=== PATIENT | male | born 1970 | race Caucasian/White ===

== ENCOUNTER 2021-10-22 09:44 | Emergency (ER) | payer OTHER, SELFPAY ==
--- NOTE | ~2021-10-22 | XR_ITS ---
EXAMINATION: XR SHOULDER, RIGHT CLINICAL INFORMATION: Trauma, pain, limited range of motion. COMPARISON: None. TECHNIQUE: Right shoulder is imaged in 5 views. FINDINGS: There is no fracture or dislocation. Right lung apex shows no pneumothorax or pleural reaction. The glenohumeral joint appears normal. The acromioclavicular alignment is normal varus incidental corticated ossicle adjacent to the distal clavicle measuring 0.8 x 1.6 cm. There is a benign-appearing calcification adjacent to inferior glenoid rim possibly related to the inferior glenohumeral ligament. No acute abnormality. XR/XR shoulder RT min 2V IMPRESSION: No fracture or dislocation or arthropathy.
[2021-10-22 10:23] VITALS: BP 127/85; PULSE 99; RESP 18; TEMP 37.1; O2SAT 96; BMI 38.3
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
== END 2021-10-22 11:52 | disposition home or self-care (01) ==
PROVIDERS: Emergency Provider Emergency Medicine
DX: S13.9XXA Sprain of joints and ligaments of unspecified parts of neck, initial encounter (principal); S13.4XXA Sprain of ligaments of cervical spine, initial encounter; V43.52XA Car driver injured in collision with other type car in traffic accident, initial encounter; E11.9 Type 2 diabetes mellitus without complications; I10 Essential (primary) hypertension; Y93.89 Activity, other specified; Y92.414 Local residential or business street as the place of occurrence of the external cause; Y99.9 Unspecified external cause status
CPT/HCPCS: 73030; 99283

== ENCOUNTER 2021-11-25 08:37 | Outpatient (REF) | payer OTHER, MEDICAID, SELFPAY | END 2021-11-25 08:38 | disposition home or self-care (01) | LOC: HO.HMGCLDS 08:37 | PROVIDERS: Visit Provider Internal Medicine | DX: Z20.822 Contact with and (suspected) exposure to COVID-19 (principal) | CPT/HCPCS: C9803; U0003; U0005 ==

== ENCOUNTER 2023-08-16 08:50 | Outpatient (AMB) | payer MEDICARE, MEDICAID, SELFPAY ==
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
== END 2023-08-16 09:21 | disposition home or self-care (01) ==
PROVIDERS: PCP Nurse Practitioner Family; Visit Provider Orthopaedic Surgery
DX: M25.511 Pain in right shoulder (principal)
CPT/HCPCS: 99202

== ENCOUNTER 2023-08-16 11:29 | Outpatient (REF) | payer MEDICARE, MEDICAID, SELFPAY ==
--- NOTE | ~2023-08-16 | XR_ITS ---
EXAMINATION: XR SHOULDER, RIGHT CLINICAL INFORMATION: Right shoulder pain. COMPARISON: Right shoulder radiographs dated 10/22/2021. TECHNIQUE: AP and scapular Y views of the right shoulder. FINDINGS: No acute fracture or dislocation. Moderate acromioclavicular joint space narrowing with marginal osteophytes and a corticated ossification, unchanged. No significant glenohumeral joint space narrowing or marginal osteophytes. No osseous erosion. Ossified loose body at the inferior aspect of the glenohumeral joint measuring up to 1.2 cm, unchanged. XR/XR shoulder RT min 2V IMPRESSION: 1. Moderate acromioclavicular osteoarthritis, unchanged. 2. Ossified loose body at the inferior aspect of the glenohumeral joint measuring up to 1.2 cm, unchanged.
== END 2023-08-16 11:30 | disposition home or self-care (01) ==
LOC: HO.HOSX 11:29
PROVIDERS: Visit Provider Orthopaedic Surgery
DX: M25.511 Pain in right shoulder (principal)
CPT/HCPCS: 73030; 99202

== ENCOUNTER 2023-08-25 09:27 | Outpatient (AMB) | payer MEDICARE, MEDICAID, SELFPAY ==
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
== END 2023-08-25 09:57 | disposition home or self-care (01) ==
PROVIDERS: PCP Nurse Practitioner Family; Visit Provider Orthopaedic Surgery
DX: M25.811 Other specified joint disorders, right shoulder (principal)
CPT/HCPCS: 99212

== ENCOUNTER → 2023-08-25 09:27 | Outpatient (BNVA) | payer MEDICARE, MEDICAID, SELFPAY | PROVIDERS: PCP Nurse Practitioner Family; Visit Provider Orthopaedic Surgery | DX: M25.811 Other specified joint disorders, right shoulder (principal) | CPT/HCPCS: 99212 ==

== ENCOUNTER 2023-09-23 05:56 | Day surgery (SDC) | payer MEDICARE, MEDICAID, SELFPAY ==
[2023-09-20 19:41] VITALS: BMI 37.7
--- NOTE | 2023-09-22 09:07 | P.CONAN_ITS ---
Documented by User: Kiki Hernandes NP 09/22/23 09:13 HPI - Anesthesia Eval Consult details Narrative: 53yo M for Right Right shoulder arthroscopy distal clavicle excision acromioplasty, possible rotator cuff repair Anesthesia Pre-Procedure Meds Is the patient on any of the following meds?: Dulaglutide (Trulicity) (Last dose 09/15/23) If Yes to any meds - educate patient: Pt education - increased risk of aspiration and Pt education - possibility of cancelled proc at provider's discretion PMFSH Active Problems Active Problems: All Active Problems (Updated 09/21/23 @ 06:52 by Sandra Yu RN) Impingement of right shoulder (Acute) Cellulitis of scalp (Acute) Right shoulder pain (Acute) Past Medical History Medical History (Updated 09/21/23 @ 06:52 by Sandra Yu RN) Obesity (BMI 30-39.9) Hyperlipidemia Right shoulder pain Diabetes mellitus, type 2 Hypertension Surgical History Surgical History (Updated 09/23/23 @ 06:13 by Jailene Arrington) H/O knee surgery History of lumbosacral spine surgery H/O right wrist surgery Social History Social History Patient Tobacco Use Status: Never used Tobacco Use of substances other than those prescribed or required for medical reasons: No Are you DNR?: No Advance Directives: No Advance Directives Information Provided: Yes Advance Directives on File: No Recently lost weight without trying: No Nutrition Risks: No Nutritional Risk Meds Allergies Allergy/AdvReac Type Severity Reaction Status Date / Time codeine [CODEINE] Allergy Severe Dizziness Unverified 09/23/23 06:14 naproxen Allergy Intermediate Stomach Verified 09/23/23 06:14 Cramps Active Medications: Current Medications Cefazolin Sodium/Dextrose (Ancef) 2 gm in 50 mls @ 100 mls/hr IV PREOP ONE Stop: 09/23/23 05:01 Home Medications Medication Instructions Recorded Confirmed Last Taken Type ibuprofen 800 mg tablet 800 mg PO ONCE 03/23/23 09/23/23 09/13/23 History losartan 50 mg tablet 50 mg PO DAILY 03/23/23 09/23/23 09/22/23 History metformin 1,000 mg tablet 1,000 mg PO DAILY 03/23/23 09/23/2323 History simvastatin 20 mg tablet 20 mg PO DAILY 03/23/23 09/23/23 Unknown History dulaglutide 0.75 mg/0.5 mL 0.75 mg subcut QWEEK 09/22/23 09/23/23 09/15/23 History subcutaneous pen injector (Trulicity) Exam Exam Date and Time: September 22, 2023 0907 Height,Weight and Vital Signs: Height 5 ft 11 in Weight 122.47 kg Assessment and Plan Assessment Anesthesia Assessment: Chart Reviewed Documented by User: Donald Kim MD 09/23/23 08:31 [facility] Past Medical History Medical History (Updated 09/21/23 @ 06:52 by Sandra Yu RN) Obesity (BMI 30-39.9) Hyperlipidemia Right shoulder pain Diabetes mellitus, type 2 Hypertension Family History Family history of problems with anesthesia: No Surgical History Surgical History (Updated 09/23/23 @ 06:13 by Jailene Arrington) H/O knee surgery History of lumbosacral spine surgery H/O right wrist surgery History of Problems with Anesthesia: No Social History Social History Patient Tobacco Use Status: Never used Tobacco Use of substances other than those prescribed or required for medical reasons: No Are you DNR?: No Advance Directives: No Advance Directives Information Provided: Yes Advance Directives on File: No Recently lost weight without trying: No Nutrition Risks: No Nutritional Risk Meds Allergies Allergy/AdvReac Type Severity Reaction Status Date / Time codeine [CODEINE] Allergy Severe Dizziness Unverified 09/23/23 06:14 naproxen Allergy Intermediate Stomach Verified 09/23/23 06:14 Cramps Home Medications Medication Instructions Recorded Confirmed Last Taken Type ibuprofen 800 mg tablet 800 mg PO ONCE 03/23/23 09/23/23 09/13/23 History losartan 50 mg tablet 50 mg PO DAILY 03/23/23 09/23/23 09/22/23 History metformin 1,000 mg tablet 1,000 mg PO DAILY 03/23/23 09/23/23 09/22/23 History simvastatin 20 mg tablet 20 mg PO DAILY 03/23/23 09/23/23 Unknown History dulaglutide 0.75 mg/0.5 mL 0.75 mg subcut QWEEK 09/22/23 09/23/23 09/15/23 History subcutaneous pen injector (Trulicity) Exam Airway Mallampati Class: III Neck ROM: Limited Heart: rrr Lungs: cta Assessment and Plan Assessment Anesthesia Assessment: Anesthesia Plan Discussed and PAT Visit Final Anesthetic Review Family History of Problems with Anesthesia: No History of Problems with Anesthesia: No NPO: Yes ASA Class: III Final Preanesthetic Review: No Changes in Pt Med Stat, Meds/Allgs Chart Reviewed, Consent Obtained/Reviewed and Anes Risks/Benef Reviewed Patient Risk: Intermediate Procedure Risk: Intermediate Anesthetic Plan Anesthetic Plan: GA, Regional Block and Agree w/ Assess. and Plan Disposition: Standard PACU
[2023-09-23] VITALS (9 sets, daily range): BP systolic 108–150; BP diastolic 64–86; PULSE 84–93; RESP 16–22; TEMP 36.3–36.6; O2SAT 93–97
[2023-09-23 06:22] LABS: Glucose, Whole Blood 189 mg/dL (60-115)
--- NOTE | 2023-09-23 06:26 | ECG_ITS ---
Test Reason : pre op. Question BBB Blood Pressure : / mmHG Vent. Rate : 093 BPM Atrial Rate : 093 BPM P-R Int : 140 ms QRS Dur : 154 ms QT Int : 410 ms P-R-T Axes : 009 -71 006 degrees QTc Int : 509 ms Normal sinus rhythm Right bundle branch block Left anterior fascicular block Bifascicular block Possible Lateral infarct , age undetermined Abnormal ECG No previous ECGs available Referred By: Michoacano Crowe Electronically Signed By:THA BERGER MD
[2023-09-23] MEDS: Lactated Ringers 1,000 ML 100 ML IVCONT (06:59)
--- NOTE | 2023-09-23 07:49 | PC.NURSE ---
Patient in preop. Question of BBB showing on monitor. No cardiac history/ EKG in computer. 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 They told me I had an irregular heart rhythm . Patient did not know any other information regarding this. EKG order put in and obtained. EKG showing SR with RBBB and left anterior fascicular block. Dr. Crowe and Dr. Kim made aware via [place] text and present at bedside prior to procedure. Per Dr. Kim, case to proceed. OR nurse Bertha made aware.
--- NOTE | 2023-09-23 09:43 | PM.OP ---
Brief Operative Note Date of Service: 09/23/23 Pre-op diagnosis: Right shoulder impingement syndrome, right shoulder acromioclavicular joint arthritis, right shoulder adhesive capsulitis Post-op diagnosis: same Procedure: Right shoulder arthroscopy with right shoulder arthroscopic distal clavicle excision, right shoulder arthroscopic acromioplasty, right shoulder arthroscopic anterior capsular release, right shoulder manipulation under anesthesia Implants: none Surgeon: Cm Duarte MD Anesthesia: GETA and regional Was an Business Analyst Manager used for this Procedure?: No Estimated blood loss (mL): 10 Pathology: none sent Condition: stable Disposition: PACU
--- NOTE | 2023-09-23 09:44 | P.OP_ITS ---
Operative Note Operative Note Date of Service: 09/23/23 Narrative: After the patient was identified as Raghavendra Phelps and their right shoulder was initialed by myself the patient was brought to the holding area where a right shoulder interscalene regional block was performed by the anesthesiologist in routine fashion. The patient was then brought to the operating room where general anesthesia was induced by the anesthesiologist in routine fashion. The patient was given 2 g of IV Ancef preoperatively for infection prophylaxis. Examination under anesthesia of the patient's right shoulder showed decreased passive range of motion when compared to the left shoulder. The patient's right shoulder had passive forward flexion to 130 degrees compared to 170 degrees, external rotation to 30 degrees compared to 60 degrees, and internal rotation to 30 degrees compared to 40 degrees. The patient was gently positioned in the beach chair position with all bony prominences well padded. The patient's right shoulder region and upper extremity were prepped and draped in sterile fashion. A formal time-out was completed. A #11 scalpel blade was used to make a posterior portal 2 cm inferior and 1 cm medial to the posterolateral corner of the acromion. Blunt trocar technique was used to enter the glenohumeral joint in routine fashion. An anterior portal was made just lateral to the coracoid process after proper positioning was confirmed using a spinal needle. Diagnostic arthroscopy showed minimal degenerative changes of the glenoid and humeral head articular surfaces. There was no evidence of rotator cuff tearing. There was no evidence of injury to the biceps tendon or its insertion onto the glenoid. There was inflammation of the anterior joint capsule consistent with adhesive capsulitis. The ArthroCare Wand was then used to perform an anterior capsular release between the inferior border of the biceps tendon and the superior border of the subscapularis tendon. The arthroscope was then placed from the posterior portal into the subacromial space. A lateral portal was made 2 fingerbreadths lateral to the anterior lateral corner of the acromion. The ArthroCare Wand was used to ablate soft tissues along the undersurface of the acromion as well as to excise the coracoacromial ligament. There was a sharp spur along the undersurface of the acromion which was removed using the hooded bur. The arthroscope was then placed into the lateral portal and the acromi oplasty was completed with the bur in the posterior portal using the posterior aspect of the acromion as a cutting block. The ArthroCare Wand was then brought in through the anterior portal and was used to ablate soft tissues along the acromioclavicular joint and distal clavicle. The posterior and superior ligamentous structures were left intact. A distal clavicle excision of 8 mm was performed using the fluted bur. Any remaining bursal tissue was removed using the arthroscopic shaver. The subacromial space was irrigated and then drained. All arthroscopic instruments were removed. A gentle manipulation under anesthesia was then performed. Full passive range of motion was easily obtained. The 3 portals were closed with 3-0 nylon interrupted suture. The subacromial space was injected with Marcaine. Dry sterile dressing was placed over all incisions. The patient's right upper extremity was placed into a sling. The patient was awoken and extubated in the operating room. The patient was transferred to the recovery room in stable condition.
[2023-09-23] MEDS: cefTRIAXone sodium 1 GM in 0.9 % Sodium Chloride 50 ML IV (09:47)
== END 2023-09-23 11:10 | disposition home or self-care (01) ==
PROVIDERS: PCP Nurse Practitioner Family; Visit Provider Orthopaedic Surgery
PROC: (CPT 29805; principal; 2023-09-23 07:30)
DX: M75.41 Impingement syndrome of right shoulder (principal); M75.01 Adhesive capsulitis of right shoulder; M19.011 Primary osteoarthritis, right shoulder; M25.811 Other specified joint disorders, right shoulder; Z91.81 History of falling; I10 Essential (primary) hypertension; E11.9 Type 2 diabetes mellitus without complications; Z79.84 Long term (current) use of oral hypoglycemic drugs; Z79.1 Long term (current) use of non-steroidal anti-inflammatories (NSAID); Z79.899 Other long term (current) drug therapy; Z88.5 Allergy status to narcotic agent; Z98.890 Other specified postprocedural states
CPT/HCPCS: 29824; 29825; 29826; 82947; 93005; J0171; J0330; J0690; J0696; J1885; J2371; J2405; J2795

== ENCOUNTER → 2023-09-23 05:56 | Outpatient (BNV) | payer MEDICARE, MEDICAID, SELFPAY | PROVIDERS: PCP Nurse Practitioner Family; Visit Provider Orthopaedic Surgery | DX: M75.41 Impingement syndrome of right shoulder (principal); M75.31 Calcific tendinitis of right shoulder; M19.011 Primary osteoarthritis, right shoulder | CPT/HCPCS: 29824; 29825; 29826 ==

== ENCOUNTER 2023-10-06 13:06 | Outpatient (AMB) | payer MEDICARE, MEDICAID, SELFPAY ==
--- NOTE | 2023-10-06 13:17 | A.OFFVIS_ITS ---
Intake Intake Visit Reasons: PO-Rt RTC Repair 09/23 Intake Note: Raghavendra a 53 year old male presents today for a post operative right RTC repair, DOS 09/23/23 Patient reports he is doing well, states mild discomfort. Allergies codeine [CODEINE] Allergy (Severe, Unverified 10/06/23 13:19) Dizziness naproxen Allergy (Intermediate, Verified 10/06/23 13:19) Stomach Cramps HPI PO-Rt RTC Repair 09/23 HPI Details 53-year-old male who returns to the [facility] today for post-op right RTC repair, 09/23/23, with Dr. Duarte. He states he has mild discomfort in his shoulder but is doing well otherwise. He has no other concerns today. [facility] Medical History (Updated 09/21/23 @ 06:52 by Sandra Yu RN) Obesity (BMI 30-39.9) Hyperlipidemia Right shoulder pain Diabetes mellitus, type 2 Hypertension Surgical History H/O knee surgery History of lumbosacral spine surgery H/O right wrist surgery Social History Patient Tobacco Use Status: Never used Tobacco Review of Systems Const All systems reviewed & are unremarkable except as noted in HPI and below Physical Exam Extrem Other: Right shoulder: Incision clean, dry and intact. No erythema. Sensation intact. He as full ROM in all planes. Results Reviewed Results Reviewed: Date of Service: 09/23/23 Pre-op diagnosis: Right shoulder impingement syndrome, right shoulder acromioclavicular joint arthritis, right shoulder adhesive capsulitis Post-op diagnosis: same Procedure: Right shoulder arthroscopy with right shoulder arthroscopic distal clavicle excision right shoulder arthroscopic acromioplasty, right shoulder arthroscopic anterior capsular release, right shoulder manipulation under anesthesia Implants: none Surgeon: Cm Duarte MD Assessment & Plan Assessment & Plan (1) Impingement of right shoulder: Code(s): M25.811 - Other specified joint disorders, right shoulder Plan Sutures removed today, steri strips applied. I did encourage him to continue working on ROM. I offered him physical therapy which he deferred at this time. If he feels that he is developing stiffness, he will contact the office to initiate formal physical therapy, otherwise he will see us back in [address] Duarte, sooner if needed. Patient Instructions: Scribed for Etienne Hodges PA-C, by [employer]anc medical aides teacher, on 10/06/2023 at 1:30 PM EST. IEtienne PA-C, have personally reviewed and agree with the information entered by the scribe. Coding Level of Care Code Global (04163) Diagnoses Impingement of right shoulder M25.811
== END 2023-10-06 13:39 | disposition home or self-care (01) ==
PROVIDERS: PCP Nurse Practitioner Family; Visit Provider Physician Assistant
DX: M25.811 Other specified joint disorders, right shoulder (principal)
CPT/HCPCS: 99024

== ENCOUNTER → 2023-10-06 13:06 | Outpatient (BNVA) | payer MEDICARE, MEDICAID, SELFPAY | PROVIDERS: PCP Nurse Practitioner Family; Visit Provider Physician Assistant ==

== ENCOUNTER 2023-11-03 09:58 | Outpatient (AMB) | payer MEDICARE, MEDICAID, SELFPAY ==
--- NOTE | 2023-11-03 10:02 | A.OFFVIS_ITS ---
Intake Intake Visit Reasons: PO-Rt Shoulder 09/23 DR Intake Note: Patient presents with complaints of mild intermittent discomfort along the lateral aspect of his right shoulder after undergoing right shoulder arthroscopic surgery on 09/23/2023. He denies any fevers or chills. He cont inues with his home stretching program. He takes ibuprofen as needed for his discomfort. Allergies codeine [CODEINE] Allergy (Severe, Unverified 11/03/23 10:02) Dizziness naproxen Allergy (Intermediate, Verified 11/03/23 10:02) Stomach Cramps Medication List - Last Reconciled 11/03/23 by Cm Duarte MD dulaglutide (Trulicity) 0.75 mg subcut QWEEK ibuprofen 800 mg PO Q8H PRN ibuprofen 800 mg PO ONCE losartan 50 mg PO DAILY metformin 1,000 mg PO DAILY simvastatin 20 mg PO DAILY PFSH Medical History Obesity (BMI 30-39.9) Hyperlipidemia Right shoulder pain Diabetes mellitus, type 2 Hypertension Surgical History H/O knee surgery History of lumbosacral spine surgery H/O right wrist surgery Social History (Updated 11/03/23 @ 10:04 by Luh Cat MA) Household Members: Family Alcohol intake: current Alcohol intake frequency: holidays/special occasions only Comment: all counts correct Patient Tobacco Use Status: Never used Tobacco Physical Exam Extrem Other: Right shoulder examination shows that the surgical incisions are well healed, no erythema, almost full range of motion when compared to his left shoulder, minimal discomfort with range of motion Assessment & Plan Assessment & Plan (1) Right shoulder pain: Code(s): M25.511 - Pain in right shoulder Qualifiers: Chronicity: acute Qualified Code(s): M25.511 - Pain in right shoulder Plan Mr. Phelps is doing well after undergoing right shoulder arthroscopic surgery o n 09/23/2023. He will continue with his stretching exercises to prevent stiffness. The do's and don'ts of lifting were discussed at length with the patient. He will contact me prior to his follow-up appointment in 2 months should any questions or concerns arise. Feel free to call me at any time should questions regarding his orthopedic management arise. Coding Level of Care Code Global (13750) Diagnoses Right shoulder pain M25.511 Chronicity: acute
== END 2023-11-03 10:36 | disposition home or self-care (01) ==
PROVIDERS: PCP Nurse Practitioner Family; Visit Provider Orthopaedic Surgery
DX: M25.511 Pain in right shoulder (principal)
CPT/HCPCS: 99024

== ENCOUNTER → 2023-11-03 09:58 | Outpatient (BNVA) | payer MEDICARE, MEDICAID, SELFPAY | PROVIDERS: PCP Nurse Practitioner Family; Visit Provider Orthopaedic Surgery | DX: M25.511 Pain in right shoulder (principal) | CPT/HCPCS: 99212 ==

== ENCOUNTER 2023-11-07 10:44 | Outpatient (REF) | payer MEDICARE, MEDICAID, SELFPAY ==
--- NOTE | ~2023-11-07 | XR_ITS ---
EXAMINATION: XR KNEE, RIGHT XR KNEE, LEFT CLINICAL INFORMATION: Knee pain, right and left. COMPARISON: None available. TECHNIQUE: Three views of each knee. FINDINGS: RIGHT KNEE: There are fairly prominent marginal osteophytes without joint space narrowing indicative of edfe-ck-lqlkrhoc tricompartmental osteoarthritis. There is a joint effusion. Arterial calcification present. LEFT KNEE: In the medial compartment, there are small marginal osteophytes without joint space narrowing. Lateral Compartment: Prominent marginal osteophytes and central osteophyte. Findings indicative of svyq-bm-qjrzokfh osteoarthritis. Patellofemoral Compartment: Marginal osteophytes indicative of dkyj-jh-sthpzpna osteoarthritis. No effusion. Arterial calcification. XR/XR knee RT 3V IMPRESSION: RIGHT KNEE: Yeyy-bm-adzykwiq osteoarthritis. Calcific atherosclerotic disease. LEFT KNEE: Zbwp-wv-fdvisgel osteoarthritis. Calcific atherosclerotic disease.
--- NOTE | ~2023-11-07 | XR_ITS ---
EXAMINATION: XR KNEE, RIGHT XR KNEE, LEFT CLINICAL INFORMATION: Knee pain, right and left. COMPARISON: None available. TECHNIQUE: Three views of each knee. FINDINGS: RIGHT KNEE: There are fairly prominent marginal osteophytes without joint space narrowing indicative of bmvf-ku-ywbkjyxh tricompartmental osteoarthritis. There is a joint effusion. Arterial calcification present. LEFT KNEE: In the medial compartment, there are small marginal osteophytes without joint space narrowing. Lateral Compartment: Prominent marginal osteophytes and central osteophyte. Findings indicative of hmeb-th-sxbnvmky osteoarthritis. Patellofemoral Compartment: Marginal osteophytes indicative of yoqw-hi-kqswgezi osteoarthritis. No effusion. Arterial calcification. XR/XR knee LT 3V IMPRESSION: RIGHT KNEE: Foqz-me-qbcnkznc osteoarthritis. Calcific atherosclerotic disease. LEFT KNEE: Vxvl-qf-qrusgekd osteoarthritis. Calcific atherosclerotic disease.
== END 2023-11-07 10:45 | disposition home or self-care (01) ==
LOC: HO.HOSX 10:44
PROVIDERS: Visit Provider Orthopaedic Surgery
DX: M17.0 Bilateral primary osteoarthritis of knee (principal); Z79.899 Other long term (current) drug therapy
CPT/HCPCS: 73562; 99212

== ENCOUNTER 2023-11-07 11:28 | Outpatient (AMB) | payer MEDICARE, MEDICAID, SELFPAY ==
--- NOTE | 2023-11-07 11:48 | MHC.OFFVIS ---
Intake Intake Visit Reasons: Bilateral Knee Pain Intake Note: Raghavendra is a 53 year old male who presents today for a evaluation for his bilateral knee pain. Patient reports ongoing pain for many years. Patient has a history of injection with no relief. The patient describes his pains as sharp and severe in nature, 10/10. At this point his left knee pain is more bothersome than is his right. He has done physical therapy which aggravated his pains. He has also tried Tylenol and anti-inflammatory medicines which gave him minimal relief. The patient has difficulty walking even short distances because of his pains. At this point is left knee pain is interfering with his activities of daily living and his ability to sleep well through the night. Allergies codeine [CODEINE] Allergy (Severe, Verified 11/07/23 11:49) Dizziness naproxen Allergy (Intermediate, Verified 11/07/23 11:49) Stomach Cramps Medication List - Last Reconciled 11/07/23 by Cm Duarte MD dulaglutide (Trulicity) 0.75 mg subcut QWEEK ibuprofen 800 mg PO Q8H PRN ibuprofen 800 mg PO ONCE losartan 50 mg PO DAILY metformin 1,000 mg PO DAILY simvastatin 20 mg PO DAILY PFSH Medical History Obesity (BMI 30-39.9) Hyperlipidemia Right shoulder pain Diabetes mellitus, type 2 Hypertension Surgical History H/O knee surgery History of lumbosacral spine surgery H/O right wrist surgery Social History Household Members: Family Alcohol intake: current Alcohol intake frequency: holidays/special occasions only Comment: all counts correct Patient Tobacco Use Status: Never used Tobacco Physical Exam Const Other: Well-nourished well-developed very friendly male awake alert and oriented x3 in no acute distress Extrem Other: Bilateral lower extremity examination shows good capillary refill, no skin lesions noted, normal sensation light touch Bilateral knee examination shows minimal effusions, palpable crepitus with range of motion, pain with range of motion, range of motion from -3 degrees to 115 degrees, no instability Results Reviewed Results Reviewed: X-rays of the patient's bilateral knee show severe joint space narrowing most significant in the patellofemoral joints, subchondral sclerosis, osteophyte formation, no acute bony abnormalities Assessment & Plan Assessment & Plan (1) Arthritis of left knee: Code(s): M17.12 - Unilateral primary osteoarthritis, left knee (2) Arthritis of right knee: Code(s): M17.11 - Unilateral primary osteoarthritis, right knee Plan Mr. Phelps presents with bilateral knee pains, left greater than right, due to severe degenerative joint disease. I had a lengthy discussion with the patient regarding the treatment options. At this point he has failed continued non operative treatments. The risks and benefits of left total knee replacement surgery were discussed at length with the patient. The patient wishes to proceed with surgery. He will be scheduled for next available date. I will see him back 1 week prior to his surgery to answer any final questions that he might have. If his right knee pain does become more severe than is his left at the time of his surgery we could certainly proceed with right total knee replacement surgery 1st. The patient will follow-up as instructed. Feel free to call me at any time should questions regarding his orthopedic management arise. I spent 22 minutes in reviewing the patient's records and imaging studies, seeing the patient and documenting in the medical record. Orders: Orders XR knee LT 3V Today M25.562 - Pain in left knee XR knee RT 3V Today M25.561 - Pain in right knee Coding Level of Care Code Est Pt Level 2 (54523) Diagnoses Arthritis of left knee M17.12 Arthritis of right knee M17.11
== END 2023-11-07 12:21 | disposition home or self-care (01) ==
PROVIDERS: PCP Nurse Practitioner Family; Visit Provider Orthopaedic Surgery
DX: M17.0 Bilateral primary osteoarthritis of knee (principal)
CPT/HCPCS: 99213

== ENCOUNTER 2024-07-15 15:29 | Emergency (ER) | payer MEDICARE, MEDICAID, SELFPAY ==
--- NOTE | 2024-07-15 15:35 | ED.GENADULT ---
HPI - General Adult General Chief complaint: General Medical Stated complaint: ? carbon monoxide poisoning Time Seen by Provider: 07/15/24 18:57 Source: patient Mode of arrival: ambulatory Limitations: no limitations History of Present Illness ED Provider: Jade Topete PA-C HPI narrative: 54-year-old male with a history of morbid obesity, diabetes, arthritis, who presents to the ER for evaluation of intermittent episodes of lightheadedness, dizziness and headache. He states for the last 3 days he has been using a work vehicle with a severe exhaustion leak. 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 He states whenever he is in the vehicle he gets lightheaded and dizzy, he gets nauseous and developed a headache. When he is out of the vehicle these symptoms subside. He denies any associated chest pain or shortness of breath. No abdominal pain or vomiting. He has been out of the vehicle since 05:00 and his symptoms have completely resolved. MD complaint: Lightheadedness Onset (ago): day(s) Location: head Radiation: non-radiation Severity: moderate Pain Consistency: now resolved Relieving factors: none Exacerbating factors: none Associated symptoms: denies other symptoms Treatments prior to arrival: none Related Data Home Medications ?Medication ?Instructions ?Recorded ?Confirmed ibuprofen 800 mg tablet 800 mg PO ONCE 03/23/23 11/07/23 losartan 50 mg tablet 50 mg PO DAILY 03/23/23 11/07/23 metformin 1,000 mg tablet 1,000 mg PO DAILY 03/23/23 11/07/23 simvastatin 20 mg tablet 20 mg PO DAILY 03/23/23 11/07/23 dulaglutide 0.75 mg/0.5 mL 0.75 mg subcut QWEEK 09/22/23 11/07/23 subcutaneous pen injector (Trulicity) Previous Rx's ?Medication ?Instructions ?Recorded ibuprofen 800 mg tablet 800 mg PO Q8H PRN pain #90 tabs 09/23/23 Allergies Allergy/AdvReac Type Severity Reaction Status Date / Time codeine [CODEINE] Allergy Severe Dizziness Verified 07/15/24 15:40 naproxen Allergy Intermediate Stomach Verified 07/15/24 15:40 Cramps Review of Systems Review of Systems: Yes all other systems are reviewed and are negative PMFSH Past Medical History Medical History Obesity (BMI 30-39.9) Hyperlipidemia Right shoulder pain Diabetes mellitus, type 2 Hypertension Surgical History H/O knee surgery History of lumbosacral spine surgery H/O right wrist surgery Social History Social History Household Members: Family Alcohol intake: current Alcohol intake frequency: holidays/special occasions only Comment: all counts correct Patient Tobacco Use Status: Never used Tobacco Advance Directives: No Advance Directives Information Provided: No Do you have a plan to hurt others: No Plan Physical Exam ED Vital Signs: Vital Signs - 24 hr 07/15/24 15:36 Temperature 98.2 F Pulse Rate 88 Respiratory Rate 18 Blood Pressure 116/70 Pulse Oximetry 98 Oxygen Delivery Method Room Air BMI result Body Mass Index 33.7 Appearance: Alert. Oriented X3. No acute distress. Head: normocephalic, atraumatic. Eyes: Pupils equal, round and reactive to light. ENT: Pharynx normal. No tonsillar swelling or exudate. No dentition Neck: Normal inspection. Neck supple. CVS: Normal heart rate and rhythm. Pulses normal. Respiratory: No respiratory distress. Breath sounds normal. Abdomen: Soft and nontender. +BS x4 Skin: Skin warm and dry. Normal skin color. Normal skin turgor. No rashes. Extremities: No lower extremity edema. No joint swelling. Neuro/psych: Oriented X 3. No motor deficit. No sensory deficit. CN II-XII intact. Normal speech and cognition. Course Course Course Narrative: This is a rapid medical exam performed by Carlos Aviles NP: Additional HPI, ROS, PE not included below will be deferred to primary provider. Patient is a 54-year-old male with history of T2DM, HTN, HLD, obesity presenting to the ED stating that he has been sitting in a car for 8 hours per day for the last 3 days in a vehicle with an exhaust leak. 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 Complains of dizziness/lightheadedness, denies nausea or vomiting. Denies headache. Plan: labs Medical Decision Making Medical Decision Making MDM Narrative: 54-year-old diabetic male presents to the ER for evaluation of intermittent episodes of lightheadedness, dizziness when he is in a work vehicle with a exhaust leak. The car had rejection electronic assembler group leader it. There is concern for carbon monoxide exposure when he was in the vehicle. His symptoms only occur when he is in the vehicle. He arrives to the ER with normal vital signs. His physical exam is unremarkable. He is neurologically intact. His lab work shows some mild microcytic anemia. He had a VBG done showing no respiratory acidosis, his carboxyhemoglobin was less than 2%. At this time patient is stable for discharge home. He may have been experiencing carbon monoxide exposure while in the vehicle. Advised not to drive his vehicle and needs to be repaired, he is in agreement and is stable for discharge home Differential Diagnosis Differential Diagnoses: The differential diagnosis associated with the presentation includes Carbon monoxide poisoning, dehydration, hypoglycemia, hyperglycemia Lab Data MDM Lab Attestation statement: I reviewed the patient's lab results. Mild normocytic anemia, normal carboxyhemoglobin 07/15/24 15:56 07/15/24 15:56 Labs: Lab Results 07/15/24 07/15/24 07/15/24 Range/Units 15:56 16:03 16:05 WBC 11.0 H (4.8-10.8) X10*3/uL RBC 4.79 (4.60-5.80) X10*6/uL Hgb 13.9 L (14.0-18.0) g/dl Hct 41.9 L (42.0-52.0) % MCV 87.5 (80.0-98.0) fL MCH 29.0 (27.0-33.0) pg MCHC 33.2 (31.0-36.0) g/dl RDW 13.0 (11.0-16.0) % Plt Count 305 (160-400) X10*3/uL MPV 9.3 L (9.4-12.4) fL Immature Gran % (Auto) 0.3 (0.0-0.4) % Neut % (Auto) 67.5 (45-73) % Lymph % (Auto) 21.3 (20-40) % Monona % (Auto) 8.0 (2-11) % Eos % (Auto) 2.5 (0-4) % Baso % (Auto) 0.4 (0-2) % Lymph # (Auto) 2.3 (1.2-4.9) X10*3/uL Monona # (Auto) 0.9 (0.1-1.2) X10*3/uL Eos # (Auto) 0.3 (0.0-0.4) X10*3/uL Baso # (Auto) 0.0 (0.0-0.2) X10*3/uL Abs Immat Gran (auto) 0.03 (0.00-0.03) X10*3/uL Absolute Neuts (auto) 7.4 (2.0-8.3) x10*3/uL Absolute Nucleated RBC 0.000 (0.0-0.012) X10*3/uL Nucleated RBC % (auto) 0.0 (0.0-0.2) /100WBC VBG pH 7.35 (7.32-7.43) VBG pCO2 48 mmHg VBG pO2 38 mmHg VBG HCO3 27 H (22-26) mmol/L VBG O2 Saturation 58.0 % VBG Base Excess 0.9 mmol/L Carboxyhemoglobin % 1.8 % Sodium 141 (135-145) mmol/L Potassium 4.3 (3.3-5.1) mmol/L Chloride 105 (96-108) mmol/L Carbon Dioxide 25 (22-29) mmol/L Anion Gap 15 (12-20) BUN 26 H (9-16) mg/dL Creatinine 1.43 H (0.5-1.4) mg/dL Estim Creat Clear Calc 74.7 Estimated GFR 51 Random Glucose 100 (60-115) mg/dL Calcium 9.9 (8.4-10.2) mg/dL Total Bilirubin 0.4 (0.0-1.0) mg/dL AST 18 (5-37) U/L ALT 18 (0-40) U/L Alkaline Phosphatase 70 (39-117) U/L Total Protein 7.2 (6.5-8.0) g/dL Albumin 4.1 (3.5-5.0) g/dL External Record Review External record reviewed: Outpatient record and Prior outpatient labs Tests considered The following testing was considered but not selected: Considered EKG however low clinical suspicion for cardiac etiology Prescription Management I considered prescription management with: Other (Oxygen) Chronic Conditions Patient?s care impacted by: Diabetes Critical Care Time Critical Care Time Critical Care Time: No Discharge Plan Discharge Clinical Impression: Episodic lightheadedness Patient Disposition: Home, Self-Care Instructions: Carbon Monoxide Poisoning (ED), Lightheadedness (ED) Additional Instructions: Your lab work today was normal. There was no evidence of carbon monoxide levels elevated in her blood. Do not drive the work vehicle with the exhaust leak, this is likely contributing to your symptoms. Follow-up with your doctor. If you develop new or worsening symptoms call 911 or come back to the ER for further evaluation. Prescriptions: No Action Trulicity 0.75 mg/0.5 mL pen injector 0.75 mg subcut QWEEK ibuprofen 800 mg tablet 800 mg PO Q8H PRN (Reason: pain) Qty: 90 2RF metformin 1,000 mg tablet 1,000 mg PO DAILY losartan 50 mg tablet 50 mg PO DAILY simvastatin 20 mg tablet 20 mg PO DAILY ibuprofen 800 mg tablet 800 mg PO ONCE Print Language: Frisian
[2024-07-15 15:36] VITALS: BP 116/70; PULSE 88; RESP 18; TEMP 36.8; O2SAT 98; BMI 33.7
[2024-07-15 16:06] LABS: VBG Base Excess 0.9 mmol/L; VBG HCO3 27 mmol/L (22-26); VBG pCO2 48 mmHg; VBG pH 7.35 (7.32-7.43); VBG pO2 38 mmHg
[2024-07-15 16:08] LABS: Carbon Monoxide POC 1.8 %
[2024-07-15 16:10] LABS: Venous Blood Gas Refer to POC result
[2024-07-15 16:11] LABS: Carbon Monoxide Refer to POC result
[2024-07-15 16:13] LABS: MANUAL DIFF FLAG NO
[2024-07-15 16:14] LABS: Basophils Percent Auto 0.4 % (0-2); Eosinophils Absolute Auto 0.3 X10*3/uL (0.0-0.4); Eosinophils Percent Auto 2.5 % (0-4); Hematocrit 41.9 % (42.0-52.0); Hemoglobin 13.9 g/dl (14.0-18.0); Imm Gran Abs Auto 0.03 X10*3/uL (0.00-0.03); Imm Gran Pct Auto 0.3 % (0.0-0.4); Lymphocytes Absolute Auto 2.3 X10*3/uL (1.2-4.9); Lymphocytes Percent Auto 21.3 % (20-40); Mean Corpuscular HGB Conc 33.2 g/dl (31.0-36.0); Mean Corpuscular Volume 87.5 fL (80.0-98.0); Mean Platelet Volume 9.3 fL (9.4-12.4); Monocytes Absolute Auto 0.9 X10*3/uL (0.1-1.2); Neutrophils Absolute Auto 7.4 x10*3/uL (2.0-8.3); Neutrophils Percent Auto 67.5 % (45-73); Platelet Count 305 X10*3/uL (160-400); Red Blood Count 4.79 X10*6/uL (4.60-5.80)
[2024-07-15 17:04] LABS: Alanine Aminotransferase 18 U/L (0-40); Albumin Level 4.1 g/dL (3.5-5.0); Alkaline Phosphatase 70 U/L (39-117); Anion Gap 15 (12-20); Aspartate Amino Transferase 18 U/L (5-37); Bilirubin Total 0.4 mg/dL (0.0-1.0); Blood Urea Nitrogen 26 mg/dL (9-16); Calcium 9.9 mg/dL (8.4-10.2); Carbon Dioxide 25 mmol/L (22-29); Chloride 105 mmol/L (96-108); Creatinine Clr Calc Pharmacy 74.7; Estimated Glomerular Filt Rate 51; Glucose Random 100 mg/dL (60-115); Potassium 4.3 mmol/L (3.3-5.1); Sodium 141 mmol/L (135-145); Total Protein 7.2 g/dL (6.5-8.0)
--- OUTSIDE RECORDS SUMMARY | 2024-07-15 19:01 | XMS_ITS | Continuity of Care Document ---
Author Organization [facility] Adult Address [address] [place] [id number]- Care Team Providers Care Respiratory Care Instructor Name Role Phone Terrence BARR, Larisa Loyd Primary Care Physician Encounter [facility] [id number] Date(s): 12/20/22 - 12/27/22 [facility] [address] [place] [id number] Encounter Diagnosis Encounter to establish care(Discharge Diagnosis) - 12/20/22 Type 2 diabetes mellitus(Discharge Diagnosis) - 12/20/22 Hypertension(Discharge Diagnosis) - 12/20/22 Hyperlipidemia(Discharge Diagnosis) - 12/20/22 Screening for prostate cancer(Discharge Diagnosis) - 12/20/22 Balanitis(Discharge Diagnosis) - 12/20/22 Class 2 obesity with body mass index (BMI) of 37.0 to 37.9 in adult(Discharge Diagnosis) - 12/20/22 Severe obesity (BMI 35.0-39.9) with comorbidity(Discharge Diagnosis) - 12/20/22 Attending Physician: Not on Staff, Attending MD Allergies, Adverse Reactions, Alerts Substance Reaction Severity Status codeine Active naproxen Active Immunizations Given and Recorded Vaccine Date Status Refusal Reason SARS-CoV-2 (COVID-19) mRNA-1273 vaccine 11/18/21 R ecorded SARS-CoV-2 (COVID-19) mRNA-1273 vaccine 10/07/21 R ecorded tetanus/diphtheria/pertussis, acel(Tdap) 10/11/14 Recorded Medications metFORMIN 1000 mg oral tablet 1 tablet = 1,000 mg, By Mouth, 2 times a day, # 180 tablet, 2 Refills, Maintenance, 12/20/22 11:02:00 EST, Tablet, [id number], Partial fill upon patient request if the prescription is for a schedule II opioid drug., 180, cm, 12/20/22 10:05:00... Start Date: 12/20/22 Stop Date: 09/16/23 Status: Ordered miconazole 2% topical cream 1 application, Topically, 2 times a day, for 14 days, # 30 Gm, 0 Refills, Acute 01/03/23 10:55:00 EST, 12/20/22 10:55:00 EST, Cream, [facility] #[id number], Partial fill upon patient request if the prescription is for a schedule II opioid drug., 1 applica... Start Date: 12/20/22 Stop Date: 01/03/23 Status: Ordered simvastatin 20 mg oral tablet 20 mg, 1, tablet, By Mouth, Daily at bedtime, # 90 tablet, Refills 2, Tot. Refills 2, Maintenance, 12/20/22 11:02:00 EST, Route to Pharmacy Electronically, [facility] #[id number], Partial fill upon patient request if the prescription is for a schedule II... Start Date: 12/20/22 Stop Date: 09/16/23 Status: Ordered Tradjenta 5 mg oral tablet 1 tablet = 5 mg, By Mouth, Daily, # 90 tablet, 2 Refills, Maintenance, 12/20/22 11:02:00 EST, Tablet, [facility] #1234, Partial fill upon patient request if the prescription is for a schedule II opioid drug., 180, cm, 12/20/22 10:05:00 EST, Height Start Date: 12/20/22 Stop Date: 09/16/23 Status: Ordered Problem List Condition Confirmation Course Effective Dates [facility] Status Informant Balanitis Confirmed Active Hyperlipidemia Confirmed Active Hypertension Confirmed Active Obese class II Confirmed Active Class 2 obesity with body mass index (BMI) of 37.0 to 37.9 in adult Confirmed Active Encounter to establish care Confirmed Active Screening for prostate cancer Confirmed Active Severe obesity (BMI 35.0-39.9) with comorbidity Confirmed Active Type 2 diabetes mellitus Confirmed Active Diagnosis Diagnosis Type Effective Dates Health Status Clinical Service Informant Encounter to establish care Discharge Diagnosis 12/20/22 Type 2 diabetes mellitus Discharge Diagnosis 12/20/22 Hypertension Discharge Diagnosis 12/20/22 Hyperlipidemia Discharge Diagnosis 12/20/22 Screening for prostate cancer Discharge Diagnosis 12/20/22 Balanitis Discharge Diagnosis 12/20/22 Class 2 obesity with body mass index (BMI) of 37.0 to 37.9 in adult Discharge Diagnosis 12/20/22 Severe obesity (BMI 35.0-39.9) with comorbidity Discharge Diagnosis 12/20/22 Procedures Procedure Date Related Diagnosis Body Site Status Cholecystectomy Completed Knee joint operation Comp leted Wrist repair Completed Vital Signs Most recent to oldest [Reference Range]: 1 Height 180 cm (12/20/22 10:05 AM) Weight 122.0 kg (12/20/22 10:05 AM) Oxygen Saturation [94-100 %] 96 % (12/20/22 10:05 AM) Pulse Rate [55-90 bpm] 97 bpm *H* (12/20/22 10:05 AM) Body Mass Index [18.5-24.99 kg/m2] 37.65 kg/m2 *>HHI* (12/20/22 10:05 AM) Blood Pressure [90-138/55-84 mm Hg] 136/ 81mm Hg (12/20/22 10:05 AM) Mode of Delivery (Oxygen) Room air (12/20/22 10:05 AM) Blood pressure sites Arm, left (12/20/22 10:05 AM) Weight Obtained Via Standing scale (12/20/22 10:05 AM) Social History Social History Type Response Smoking Status Former smoker, quit more than 30 days ago; Other: quit more than 10 years, smoked for three years; entered on: 12/20/22 Sex Note * Gay Santos: PERFORM, SIGN, VERIFY Event Display: Patient Education/Instruction Authored Date: [id number] [facility] Clinical Summary Name EDWINA SUH Age 52 Years 1970 PCP Terrence BARR, Larisa Loyd PCP Visit Date 12/20/2022 09:37:00 Additional Instructions: Scheduled Appointments?? Future Appointments ?*[facility] ?[address] ?Phone:??--?Fax:??-- ?Appt. Date:??03/17/2023?12:50 PM ?Scheduled Provider:??Terrence BARR, Larisa Loyd Follow-Up Instructions ?? Diagnosis Balanitis; Encounter for screening for malignant neoplasm of prostate; Morbid (severe) obesity due to excess calories; Persons encountering health services in other specified circumstances; Essential(primary) hypertension; Hyperlipidemia, unspecified; Type 2 diabetes mellitus without complications; Obesity, unspecified Medications: Please continue your medications until treatment is completed or stopped by your provider. Discuss any questions related to medications with your provider. New Medications [facility]/pharm[facility] #[id number], [address], [place] [id number], [phone] linagliptin (Tradjenta 5 mg oral tablet) 1 tab(s) Oral Daily for 90 Days. Refills: 2. Next Dose: Metformin (metFORMIN 1000 mg oral tablet) 1 tab(s) Oral twice a day for 90 Days. Refills: 2. Next Dose: Miconazole Topical (miconazole 2% topical cream) 1 yury Topically twice a day for 14 Days. Refills: 0. Next Dose: Simvastatin (simvastatin 20 mg oral tablet) 1 tab(s) Oral Daily at Bedtime for 90 Days. Refills: 2. Next Dose: Allergy Info:?? naproxen; codeine Medications Given This Visit Future Orders ?PSA? Order Date:12/20/22?- Complete on or after?12/20/22 ?Lipid Panel? Order Date:12/20/22?- Complete on or after?12/20/22 ?CBC? Order Date:12/20/22?- Complete on or after?12/20/22 ?Basic Metabolic Panel? Order Date:12/20/22?- Complete on or after?12/20/22 ?Hemoglobin A1C (Monitoring)? Order Date:12/20/22?- Complete on or after?12/20/22 ?Microalbumin Urine? Order Date:12/20/22?- Complete on or after?12/20/22 ?ALT? Order Date:12/20/22?- Complete on or after?12/20/22 ?AST? Order Date:12/20/22?- Complete on or after?12/20/22 Vital Signs Height 180 cm Weight 122.0 kg BMI 37.65 kg/m2 Blood Pressure 136 mm Hg/81 mm Hg Temperature Pulse Rate 97 bpm Respiratory Rate 02 Sat Mode of Delivery 96 %/Room air You can now view a summary of your hospital visit from the comfort of your home through a free online portal called [employer]. [employer] is a website that allows you to securely view your medical information including discharge summary, medications and follow-up visits. ??You can alsosend a secure electronic message to your doctor???s office to request appointments, renew medications or just ask a question. You can enroll at [email or web address] or register during your next office visit. Disclaimer:?? The information provided is of a general nature and is intended to be used in conjunction with the recommendations and advice of your health care practitioner. ??Every effort has been made to ensure that the information provided is accurate and complete at the time it is provided to you however, as your needs change, or, as new ??information becomes available, different or additional instructions may be required. If you have questions, please consult with your primary care provider or pharmacist, as appropriate. ??This information is not intended to serve as substitution for assessment and evaluation by a qualified health care provider. If you do not have a primary care provider, you may find a [facility] provider by calling [facility] Link at [phone]. For information about the plan of care including goals and instructions for your diagnosis, please see the patient education orders section of this document. Patient Education Materials?? The content of this educational material or handout may have been modified, supplemented, or adapted from its original content and format to support your individualized medical care. Patient Care team information Care Team Personnel Name: Larisa Ocampo NP Position: [facility] PCO Associate Professional Member Role: PCP Address: Address: [address] [place] [address] [address] [place] [address]- Care Team Related Persons Name: ASHA SUH Name: RAMESH SUH Address: home [address] [place] [id number] Name: HAJA SUH Address: home [address] [place] [address]
--- OUTSIDE RECORDS SUMMARY | 2024-07-15 19:01 | XMS_ITS | Continuity of Care Document ---
Author Organization [facility] Address [address] [place] [address]- Care Team Providers Care Trestleman Name Role Phone Dionne BARR, Larisa Primary Care Physician [phone] Encounter [facility] Date(s): 03/22/24 - 04/21/24 [facility] [address] [place] [address]- Allergies, Adverse Reactions, Alerts Substance Reaction Severity Status codeine 1 Active naproxen Active 1Pt states this medication makes him dizzy . Immunizations Given and Recorded Vaccine Date Status Refusal Reason SARS-CoV-2 (COVID-19) mRNA-1273 vaccine 11/18/21 R ecorded SARS-CoV-2 (COVID-19) mRNA-1273 vaccine 10/07/21 R ecorded tetanus/diphtheria/pertussis, acel(Tdap) 10/11/14 Recorded Medications acetaminophen 325 mg oral tablet 650 mg, By Mouth, Every 6 hours, PRN, Refills 0, Maintenance, Pain , Mild, 02/17/24 8:31:00 EDT, Partial fill upon patient request if the prescription is for a schedule II opioid drug. Start Date: 02/17/24 Status: Ordered doxycycline monohydrate 100 mg oral capsule 1 capsule, By Mouth, 2 times a day, MARCH. TAKE WITH FOOD TO MINIMIZE ABDOMINAL DISCOMFORT, # 180 capsule, 0 Refills, Maintenance, 03/21/24 9:52:00 EDT, [id number], 180.34, cm, 03/20/2411:09:00 EDT, Height, 92, kg, 03/20/24 10:59:00 EDT... Start Date: 03/21/24 Stop Date: 05/02/24 Status: Ordered Enoxaparin 0.4 mL = 40 mg, Subcutaneous Injection, Daily, Until 03/14/2024, 0 Refills, Maintenance, 02/17/24 13:17:00 EDT, Injection, Partial fill upon patient request if the prescription is for a schedule II opioid drug. Start Date: 02/17/24 Status: Ordered Freestyle Lite Test Strips See Instructions, # 600 each, Refills 2, Tot. Refills 2, Maintenance, Use for checking blood sugar four times daily for type 2 diabetes, 01/18/24 14:05:00 EST, Supply, 180, cm, 01/18/24 13:08:00 EST,Height, 120, kg, 01/02/24 0:32:00 EST, Dry Weight Start Date: 01/18/24 Stop Date: 10/14/24 Status: Ordered Lancets See Instructions, # 200 each, Refills 3, Tot. Refills 3, Maintenance, Use for checking blood sugar twice daily for type 2 diabetes, 03/27/24 14:51:00 EDT, Supply, 180.34, cm, 03/20/24 11:09:00 EDT, Height, 92, kg, 03/20/24 10:59:00 EDT, Dry Weight Start Date: 03/27/24 Status: Ordered Lantus Solostar Pen 100 units/mL subcutaneous solution = 10 units, Subcutaneous Injection, Daily at bedtime, # 15 mL, 1 Refills, Maintenance, 01/09/24 15:12:00 EST, Solution, [facility] #[id number], Partial fill upon patient request if the prescription is for a schedule II opioid drug., 180, cm, 01/07... Start Date: 01/09/24 Stop Date: 03/09/24 Status: Ordered losartan 25 mg oral tablet 1 tablet, By Mouth, Daily, # 90 tablet, 0 Refills, Maintenance, 12/29/23 10:39:00 EST, [id number], 180, cm, 08/29/23 12:04:00 EDT, Height, 118, kg, 03/26/23 17:27:00 EDT, Dry Weight Start Date: 12/29/23 Status: Ordered metFORMIN 1000 mg oral tablet 1 tablet, By Mouth, 2 times a day, # 180 tablet, 0 Refills, Maintenance, 12/29/23 10:40:00 EST, [facility] #[id number], 180, cm, 08/29/23 12:04:00 EDT, Height, 118, kg, 03/26/23 17:27:00 EDT, DryWeight Start Date: 12/29/23 Status: Ordered One Touch Ultra 2 Glucose Meter See Instructions, # 1 each, Refills 0, Tot. Refills 0, Maintenance, Use for checking blood sugar twice daily for type 2 diabetes, 03/27/24 14:51:00 EDT, Supply, 180.34, cm, 03/20/24 11:09:00 EDT, Height, 92, kg, 03/20/24 10:59:00 EDT, Dry Weight Start Date: 03/27/24 Stop Date: 04/26/24 Status: Ordered One Touch Ultra Test Strips See Instructions, # 200 each, Refills 5, Tot. Refills 5, Maintenance, Use for checking blood sugar twice daily for Type 2 Diabetes Mellitus, 03/27/24 14:51:00 EDT, Supply, 180.34, cm, 03/20/24 11:09:00 EDT, Height, 92, kg, 03/20/24 10:59:00 EDT, Dry W... Start Date: 03/27/24 Stop Date: 09/23/24 Status: Ordered Pen Devon, 31 G x 8 mm BD Ultra Fine III See Instructions, # 100 each, Refills 5, Tot. Refills 5, Maintenance, use as directed for Type 2 Diabetes Mellitus, 01/18/24 13:59:00 EST, Supply, 180, cm, 01/18/24 13:08:00 EST, Height, 120, kg, 01/02/24 0:32:00 EST, Dry Weight Start Date: 01/18/24 Stop Date: 07/16/24 Status: Ordered simvastatin 20 mg oral tablet 40 mg, 2, tablet, By Mouth, Daily, Refills 0, Maintenance, 02/14/24 19:47:00 EDT, Partial fill uponpatient request if the prescription is for a schedule II opioid drug. 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 Hyperglycemia due to diabetes mellitus Confirmed Active Hyperlipidemia Confirmed Active Hypertension Confirmed Active Hypokalemia Confirmed Active Obese class I Confirmed Active Class 2 obesity with body mass index (BMI) of 37.0 to 37.9 in adult Confirmed Active Screening for prostate cancer Confirmed Active Positive screening for depression on 2-item Patient Health Questionnaire (PHQ-2) Confirmed Active Right shoulder pain Confirmed Active Type 2 diabetes mellitus Confirmed Active Social History Social History Type Response Smoking Status Former smoker, quit more than 30 days ago; Other: quit more than 10 years, smoked for three years; entered on: 12/20/22 Sex Patient Care team information Care Team Personnel Name: Beverly Elam RN Position: S RN Member Role: Primary Care Nurse Name: Tita Conrad RN Position: S RN Member Role: Primary Care Nurse Name: Aditi Plascencia Position: S RN Supv Member Role: Primary Care Nurse Name: Larisa Truong NP Position: [facility] PCO Associate Professional Member Role: PCP Address: Address: [address] [place] [id number] Name: Ronda Madison RN Position: S RN Member Role: Primary Care Nurse Care Team Related Persons Name: ASHA SUH Name: RAMESH SUH Address: home [address] [place] [address] Name: HAJA SUH Address: home [address] [place] [address]
--- OUTSIDE RECORDS SUMMARY | 2024-07-15 19:01 | XMS_ITS | Continuity of Care Document ---
Author Organization [facility] Adult Address [address] [place] [address]- Care Team Providers Care Sustainable Landscape Architect Name Role Phone Dionne BARR, Larisa Primary Care Physician [place] [facility] 03/22[place]24 - 04/21/24 [facility] [address] [place] [address]- Allergies, Adverse Reactions, Alerts Substance Reaction Severity [...] capsule, 0 Refills, Maintenance, 03/21/24 9:52:00 EDT, [facility] #[id number], 180.34, cm, 03/20/2411:09:00 EDT, Height, 92, kg, [...] 1 Refills, Maintenance, 01/09/24 15:12:00 EST, Solution, [facility] #[id number], Partial fill upon patient request if the prescription is for a schedule II opioid drug., 180, cm, 01/07... Start Date: 01/09/24 Stop Date: 03/09/24 Status: Ordered losartan 25 mg oral tablet 1 tablet, By Mouth, Daily, # 90 tablet, 0 Refills, Maintenance, 12/29/23 10:39:00 EST, [facility] #[id number], 180, cm, 08/29/23 12:04:00 EDT, Height, 118, kg, 03/26/23 17:27:00 EDT, Dry Weight Start Date: 12/29/23 Status: Ordered metFORMIN 1000 mg oral tablet 1 tablet, By Mouth, 2 times a day, # 180 tablet, 0 Refills, Maintenance, 12/29/23 10:40:00 EST, [facility] #[id number], 180, cm, 08/29/23 12:04:00 EDT, Height, 118, [...] 03/27/24 Stop Date: 09/23/24 Status: Ordered Pen Mott, 31 G x 8 mm BD Ultra [...] Care Nurse Name: Larisa Truong NP Position: [facility] PCO Associate Professional Member Role: PCP Address: Address: [address] [place] [id number] Name: Ronda Madison RN Position: S RN Member Role: Primary Care Nurse Care Team Related Persons Name: ASHA SUH Name: RAMESH SUH Address: home [address] [place] [address] Name: HAJA SUH Address: home [address] [place] [address]
--- OUTSIDE RECORDS SUMMARY | 2024-07-15 19:01 | XMS_ITS | Continuity of Care Document ---
Author Organization [facility] Adult Address [address] [place] [address]- Care Team Providers Care Food And Drink Factory Workers Name Role Phone Terrence BARR, Larisa Loyd Primary Care Physician En[place] [facility] Date(s): 08/17/23 - 09/16/23 [facility] Adult [address] [place] [address]- Allergies, Adverse Reactions, Alerts Substance Reaction Severity Status codeine Active naproxen Active Immunizations Given and Recorded Vaccine Date Status Refusal Reason SARS-CoV-2 (COVID-19) mRNA-1273 vaccine 11/18/21 R ecorded SARS-CoV-2 (COVID-19) mRNA-1273 vaccine 10/07/21 R ecorded tetanus/diphtheria/pertussis, acel(Tdap) 10/11/14 Recorded Medications Alcohol Pads See Instructions, # 200 each, Refills 5, Tot. Refills 5, Maintenance, use as directed for Type 2 Diabetes Mellitus, 06/24/23 12:53:00 EDT, Supply, 180, cm, 06/24/23 11:02:00 EDT, Height, 118, kg, 03/26/23 17:27:00 EDT, Dry Weight Start Date: 06/24/23 Stop Date: 12/21/23 Status: Ordered Freestyle Lite Lancets See Instructions, # 200 each, Refills 5, Tot. Refills 5, Maintenance, use as directed for Type 2 Diabetes Mellitus, 06/24/23 12:53:00 EDT, Supply, 180, cm, 06/24/23 11:02:00 EDT, Height, 118, kg, 03/26/23 17:27:00 EDT, Dry Weight Start Date: 06/24/23 Stop Date: 12/21/23 Status: Ordered Freestyle Lite Monitor See Instructions, # 1 each, Refills 0, Tot. Refills 0, Maintenance, use for checking blood sugar once daily for type 2 diabetes, 08/29/23 12:05:00 EDT, Supply, 180, cm, 08/29/23 12:04:00 EDT, Height,118, kg, 03/26/23 17:27:00 EDT, Dry Weight Start Date: 08/29/23 Status: Ordered Freestyle Lite Test Strips See Instructions, # 200 each, Refills 2, Tot. Refills 2, Maintenance, use as directed for Type 2 Diabetes Mellitus, 06/24/23 12:53:00 EDT, Supply, 180, cm, 06/24/23 11:02:00 EDT, Height, 118, kg, 03/26/23 17:27:00 EDT, Dry Weight Start Date: 06/24/23 Stop Date: 09/22/23 Status: Ordered ibuprofen 800 mg oral tablet 1, tablet, By Mouth, 3 times a day, # 90 tablet, Refills 2, Tot. Refills 2, Maintenance, 06/24/23 12:52:00 EDT, Route to Pharmacy Electronically, [facility] #[id number], 180, cm, 06/24/23 11:02:00 EDT, Height, 118, kg, 03/26/23 17:27:00 EDT, Dry W... Start Date: 06/24/23 Status: Ordered Jardiance 10 mg oral tablet 1 tablet = 10 mg, By Mouth, Daily in AM, # 30 tablet, 1 Refills, Maintenance, 08/29/23 11:50:00 EDT, Tablet, [facility] #[id number], Partial fill upon patient request if the prescription is for aschedule II opioid drug., 180, cm, 08/29/23 11:27:0... Start Date: 08/29/23 Stop Date: 10/28/23 Status: Ordered losartan 25 mg oral tablet 1 tablet, By Mouth, Daily, # 90 tablet, 2 Refills, Maintenance, 06/24/23 12:52:00 EDT, [facility] #[id number], 180, cm, 06/24/23 11:02:00 EDT, Height, 118, kg, 03/26/23 17:27:00 EDT, Dry Weight Start Date: 06/24/23 Status: Ordered metFORMIN 1000 mg oral tablet 1 tablet = 1,000 mg, By Mouth, 2 times a day, # 180 tablet, 2 Refills, Maintenance, 06/24/23 12:52:00 EDT, Tablet, [facility][id number], Partial fill upon patient request if the prescription isfor a schedule II opioid drug., 180, cm, 06/24/23 1... Start Date: 06/24/23 Stop Date: 03/20/24 Status: Ordered Ozempic 2 mg/1.5 mL (1 mg dose) subcutaneous solution = 1 mg, Subcutaneous Infusion, Every 7 days, # 3 mL, 0 Refills, Maintenance, 08/01/23 9:08:00 EDT, [facility][id number], Partial fill upon patient request if the prescription is for a schedule II opioid drug., 1 mg Subcutaneous Infusion Every 7... Start Date: 08/01/23 Stop Date: 08/29/23 Status: Ordered simvastatin 40 mg oral tablet 40 mg, 1, tablet, By Mouth, Daily at bedtime, # 90 tablet, Refills 2, Tot. Refills 2, Maintenance, 06/24/23 12:52:00 EDT, Route to Pharmacy Electronically, [facility] #[id number], Partial fill upon patient request if the prescription is for a sche... Start Date: 06/24/23 Stop Date: 03/20/24 Status: Ordered Trulicity Pen 0.75 mg/0.5 mL subcutaneous solution 0.5 mL = 0.75 mg, Subcutaneous Injection, Every week, rotate injection sites, # 2 mL, 1 Refills, Maintenance, 08/29/23 11:49:00 EDT, Solution, [facility] #[id number], Partial fill upon patient request if the prescription is for a schedule II opioi... Start Date: 08/29/23 Stop Date: 10/24/23 Status: Ordered Problem List Condition Confirmation Course Effective Dates Status H ealth Status Informant Balanitis Confirmed Active Hyperlipidemia Confirmed Active Hypertension Confirmed Active Class 2 obesity with body mass index (BMI) of 37.0 to 37.9 in adult Confirmed Active Screening for prostate cancer Confirmed Active Positive screening for depression on 2-item Patient Health Questionnaire (PHQ-2) Confirmed Active Severe obesity (BMI 35.0-39.9) with comorbidity Confirmed Active Right shoulder pain Confirmed Active Type 2 diabetes mellitus Confirmed Active Social History Social History Type Response Smoking Status Former smoker, quit more than 30 days ago; Other: quit more than 10 years, smoked for three years; entered on: 12/20/22 Sex Patient Care team information Care Team Personnel Name: Larisa Ocampo NP Position: [facility] PCO Associate Professional Member Role: PCP Address: Address: [address] [place] [address] [address] [place], [place] [address] Care Team Related Persons Name: ASHA SUH Name: RAMESH SUH Address: home [address] [place] [address] Name: HAJA SUH Address: home [address] [place] [address]
--- OUTSIDE RECORDS SUMMARY | 2024-07-15 19:02 | XMS_ITS | Continuity of Care Document ---
Author Organization [facility] Address [address] [place] [address]- Care Team Providers Care Calliope Player Name Role Phone Dionne BARR, Larisa Primary Care Physician [place] [facility] [place] 03/[place]/24 [facility] [address] [place] [id number] Attending Physician: Anat Layne Admitting Physician: Admtr, Anat Referring Physician: Admtr, Ar8 Allergies, Adverse Reactions, Alerts Substance Reaction Severity [...] opioid drug. Start Date: 02/17/24 Status: Ordered ascorbic acid 250 mg oral tablet = 250 mg, By Mouth, 2 times a day with meals, 0 Refills, Maintenance, 02/17/24 8:31:00 EDT, Tablet,Partial fill upon patient request if the prescription is for a schedule II opioid drug. Start Date: 02/17/24 Status: Ordered bisacodyl 10 mg rectal suppository 1 supp = 10 mg, Rectally, Daily, PRN Constipation, 0 Refills, Maintenance, 02/17/24 13:19:00 EDT, Suppository, Partial fill upon patient request if the prescription is for a schedule II opioid drug. Start Date: 02/17/24 Status: Ordered cholecalciferol 1000 intl units oral tablet By Mouth, Daily, 0 Refills, Maintenance, 02/17/24 8:31:00 EDT, Tablet, Partial fill upon patient request if the prescription is for a schedule II opioid drug. Start Date: 02/17/24 Status: Ordered doxycycline hyclate 100 mg oral capsule 1 capsule = 100 mg, By Mouth, 2 times a day, for 14 days, # 28 capsule, 1 Refills, Acute 03/02/24 14:14:00 EDT, 02/03/24 14:14:00 EDT, Capsule, [facility][id number], Partial fill upon patient request if the prescription is for a schedule II opio... Start Date: 02/03/24 Stop Date: 03/02/24 Status: Ordered Enoxaparin 0.4 mL = 40 mg, Subcutaneous Injection, Daily, Until 03/14/2024, 0 Refills, Maintenance, 02/17/24 13:17:00 EDT, Injection, Partial fill upon patient request if the prescription is for a schedule II opioid drug. Start Date: 02/17/24 Status: Ordered ferrous sulfate 325 mg oral enteric coated tablet 325 mg, By Mouth, Daily, Refills 0, Maintenance, 02/17/24 8:31:00 EDT, Partial fill upon patient [...] Date: 01/18/24 Stop Date: 10/14/24 Status: Ordered Lantus Solostar Pen 100 units/mL subcutaneous solution = 10 units, Subcutaneous Injection, Daily at bedtime, # 15 mL, 1 Refills, Maintenance, 01/09/24 15:12:00 EST, Solution, [facility] #[id number], Partial fill upon patient request if the prescription is for a schedule II opioid drug., 180, cm, 01/07... Start Date: 01/09/24 Stop Date: 03/09/24 Status: Ordered losartan 25 mg oral tablet 1 tablet, By Mouth, Daily, # 90 tablet, 0 Refills, Maintenance, 12/29/23 10:39:00 EST, [facility] #[id number], 180, cm, 08/29/23 12:04:00 EDT, Height, 118, kg, 03/26/23 17:27:00 EDT, Dry Weight Start Date: 12/29/23 Status: Ordered magnesium oxide 400 mg oral tablet = 400 mg, By Mouth, 2 times a day, 0 Refills, Maintenance, 02/17/24 8:31:00 EDT, Tablet, Partial fill upon patient request if the prescription is for a schedule II opioid drug. Start Date: 02/17/24 Status: Ordered metFORMIN 1000 mg oral tablet 1 tablet, By Mouth, 2 times a day, # 180 tablet, 0 Refills, Maintenance, 12/29/23 10:40:00 EST, [facility] #[id number], 180, cm, 08/29/23 12:04:00 EDT, Height, 118, kg, 03/26/23 17:27:00 EDT, DryWeight Start Date: 12/29/23 Status: Ordered MiraLax Powder 1 pack/packet = 17 Gm, By Mouth, Daily, PRN Constipation, 0 Refills, Maintenance, 02/17/24 13:19:00EDT, Powder, Partial fill upon patient request if the prescription is for a schedule II opioid drug. Start Date: 02/17/24 Status: Ordered Multivitamin Tablet 1 tablet, By Mouth, Daily, 0 Refills, Maintenance, 02/17/24 8:31:00 EDT, Tablet, Partial fill upon patient request if the prescription is for a schedule II opioid drug. Start Date: 02/17/24 Status: Ordered Pen Purmela, 30 G x 8 mm BD Ultra Fine II See Instructions, # 300 each, Refills 2, Tot. Refills 2, Maintenance, use as directed for Type 2 Diabetes Mellitus, 01/09/24 15:13:00 EST, Supply, 180, cm, 01/07/24 11:05:00 EST, Height, 120, kg, 01/02/24 0:32:00 EST, Dry Weight Start Date: 01/09/24 Stop Date: 10/05/24 Status: Ordered Pen [place], 31 G x 8 mm BD Ultra [...] Active Hypertension Confirmed Active Hypokalemia Confirmed Active Class 2 obesity with body [...] Care Nurse Name: Larisa Truong NP Position: S PCO Associate Professional Member Role: PCP Address: Address: [address] [place] [id number] Name: Ronda Madison RN Position: S RN Member Role: Primary Care Nurse Care Team Related Persons Name: ASHA SUH Name: RAMESH SUH Address: home [address] [place] [address] Name: HAJA SUH Address: home [address] [place] [address]
--- OUTSIDE RECORDS SUMMARY | 2024-07-15 19:02 | XMS_ITS | Continuity of Care Document ---
Author Organization [facility] Address [address] [place] [address]- Care Team Providers Care Property Condition Assessor Name Role Phone Dionne BARR, Larisa Primary Care Physician [phone] [place] [facility] [place] - 02/05/[address] [address] Attending Physician: Not on Staff, Attending MD Admitting Physician: Not on Staff, Admitting MD Referring Physician: Not on Staff, Referring MD Allergies, Adverse Reactions, Alerts Substance Reaction Severity Status codeine Active naproxen Active Immunizations Given and Recorded Vaccine Date Status Refusal Reason SARS-CoV-2 (COVID-19) mRNA-1273 vaccine 11/18/21 R ecorded SARS-CoV-2 (COVID-19) mRNA-1273 vaccine 10/07/21 R ecorded tetanus/diphtheria/pertussis, acel(Tdap) 10/11/14 Recorded Medications doxycycline hyclate 100 mg oral capsule 1 capsule = 100 mg, By Mouth, 2 times a day, for 14 days, # 28 capsule, 1 Refills, Acute 03/02/24 14:14:00 EDT, 02/03/24 14:14:00 EDT, Capsule, [facility] #[id number], Partial fill upon patient request if the prescription is for a schedule II opio... Start Date: 02/03/24 Stop Date: 03/02/24 Status: Ordered Freestyle Lite Test Strips See Instructions, # 600 each, Refills 2, Tot. Refills 2, Maintenance, Use for checking blood sugar four times daily for type 2 diabetes, 01/18/24 14:05:00 EST, Supply, 180, cm, 01/18/24 13:08:00 EST,Height, 120, kg, 01/02/24 0:32:00 EST, Dry Weight Start Date: 01/18/24 Stop Date: 10/14/24 Status: Ordered ibuprofen 800 mg oral tablet 1, tablet, By Mouth, 3 times a day, # 90 tablet, Refills 2, Tot. Refills 2, Maintenance, 06/24/23 12:52:00 EDT, Route to Pharmacy Electronically, [facility] #[id number], 180, cm, 06/24/23 11:02:00 EDT, Height, 118, kg, 03/26/23 17:27:00 EDT, Dry W... Start Date: 06/24/23 Status: Ordered Jardiance 10 mg oral tablet 1 tablet, By Mouth, Daily in AM, # 30 tablet, 3 Refills, Maintenance, 10/27/23 11:21:00 EST, [facility] #[id number], 180, cm, 08/29/23 12:04:00 EDT, Height, 118, kg, 03/26/23 17:27:00 EDT, Dry Weight Start Date: 10/27/23 Status: Ordered Lantus Solostar Pen 100 units/mL subcutaneous solution = 10 units, Subcutaneous Injection, Daily at bedtime, # 15 mL, 1 Refills, Maintenance, 01/09/24 15:12:00 EST, Solution, [facility] #[id number], Partial fill upon patient request if the prescription is for a schedule II opioid drug., 180, cm, 01/07... Start Date: 01/09/24 Stop Date: 03/09/24 Status: Ordered losartan 25 mg oral tablet 1 tablet, By Mouth, Daily, # 90 tablet, 0 Refills, Maintenance, 12/29/23 10:39:00 EST, [facility] #[id number], 180, cm, 08/29/23 12:04:00 EDT, Height, 118, kg, 03/26/23 17:27:00 EDT, Dry Weight Start Date: 12/29/23 Status: Ordered metFORMIN 1000 mg oral tablet 1 tablet, By Mouth, 2 times a day, # 180 tablet, 0 Refills, Maintenance, 12/29/23 10:40:00 EST, [facility] #[id number], 180, cm, 08/29/23 12:04:00 EDT, Height, 118, kg, 03/26/23 17:27:00 EDT, DryWeight Start Date: 12/29/23 Status: Ordered Pen [place], 30 G x 8 mm BD Ultra Fine II See Instructions, # 300 each, Refills 2, Tot. Refills 2, Maintenance, use as directed for Type 2 Diabetes Mellitus, 01/09/24 15:13:00 EST, Supply, 180, cm, 01/07/24 11:05:00 EST, Height, 120, kg, 01/02/24 0:32:00 EST, Dry Weight Start Date: 01/09/24 Stop Date: 10/05/24 Status: Ordered Pen [place], 31 G x 8 mm BD Ultra Fine III See Instructions, # 100 each, Refills 5, Tot. Refills 5, Maintenance, use as directed for Type 2 Diabetes Mellitus, 01/18/24 13:59:00 EST, Supply, 180, cm, 01/18/24 13:08:00 EST, Height, 120, kg, 01/02/24 0:32:00 EST, Dry Weight Start Date: 01/18/24 Stop Date: 07/16/24 Status: Ordered simvastatin 40 mg oral tablet 1, tablet, By Mouth, Daily at bedtime, # 90 tablet, Refills 0, Maintenance, 12/29/23 10:39:00 EST, Route to Pharmacy Electronically, [facility] #[id number], 180, cm, 08/29/23 12:04:00 EDT, Height, 118, kg, 03/26/23 17:27:00 EDT, Dry Weight Start Date: 12/29/23 Status: Ordered Trulicity Pen 0.75 mg/0.5 mL subcutaneous solution 0.5 mL = 0.75 mg, Subcutaneous Injection, Every week, rotate injection sites, # 2 mL, 1 Refills, Maintenance, 08/29/23 11:49:00 EDT, Solution, [facility] #[id number], Partial fill upon patient request if the [...] Primary Care Nurse Name: Aditi Plascencia Position: [facility] RN Supv Member Role: Primary Care Nurse Name: Larisa Truong NP Position: [facility] PCO Associate Professional Member Role: PCP Address: Address: [address] [place] [address] [address] [place], [place] [address] Care Team Related Persons Name: ASHA SUH Name: RAMESH SUH Address: home [address] [place] [address] Name: HAJA SUH Address: home [address] [place] [address]
--- OUTSIDE RECORDS SUMMARY | 2024-07-15 19:02 | XMS_ITS | Continuity of Care Document ---
Author Organization [facility] Address [address] [place] [address]- Care Team Providers Care Can Closing Machine Tender Name Role Phone Not on Staff, PCP Primary Care Physician Unavail able Encounter [facility] Date(s): 09/07/22 - 10/07/22 [facility] [address] [place] [address]- Allergies, Adverse Reactions, Alerts Substance Reaction Severity Status codeine Active naproxen Active Immunizations Given and Recorded Vaccine Date Status Refusal Reason SARS-CoV-2 (COVID-19) mRNA-1273 vaccine 11/18/21 R ecorded SARS-CoV-2 (COVID-19) mRNA-1273 vaccine 10/07/21 R ecorded tetanus/diphtheria/pertussis, acel(Tdap) 10/11/14 Recorded Patient Care team information Care Team Personnel Name: Not on Staff, PCP Position: S Physician (General Medicine) Member Role: PCP Care Team Related Persons Name: ASHA SUH Name: RAMESH SUH Address: home [address] [place] [address] Name: HAJA SUH Address: home [address] [place] [address]
--- OUTSIDE RECORDS SUMMARY | 2024-07-15 19:02 | XMS_ITS | Continuity of Care Document ---
Author Organization [facility] Address [address] [place] [address]- Care Team Providers Care Dispensing Lead Name Role Phone Dionne BARR, Larisa Primary Care Physician En[place] [facility] [place] Date(s): 11/25/23 - 12/25/23 [facility] [address] [place] [phone]- Allergies, Adverse Reactions, Alerts Substance Reaction Severity [...] 06/24/23 12:52:00 EDT, Route to Pharmacy Electronically, [facility] #[id number], 180, cm, 06/24/23 11:02:00 EDT, Height, 118, kg, 03/26/23 17:27:00 EDT, Dry W... Start Date: 06/24/23 Status: Ordered Jardiance 10 mg oral tablet 1 tablet, By Mouth, Daily in AM, # 30 tablet, 3 Refills, Maintenance, 10/27/23 11:21:00 EST, [facility] #[id number], 180, cm, 08/29/23 12:04:00 EDT, Height, 118, kg, 03/26/23 17:27:00 EDT, Dry Weight Start Date: 10/27/23 Status: Ordered Lancets Lancets, See Instructions, # 100 each, Refills 5, Tot. Refills 5, Maintenance, Use to test blood sugars once daily, 10/05/23 13:43:00 EST, Supply, 180, cm, 08/29/23 12:04:00 EDT, Height, 118, kg, 03/26/23 17:27:00 EDT, Dry Weight Start Date: 10/05/23 Status: Ordered losartan 25 mg oral tablet 1 tablet, By Mouth, Daily, # 90 tablet, 2 Refills, Maintenance, 06/24/23 12:52:00 EDT, [facility] #[id number], 180, cm, 06/24/23 11:02:00 EDT, Height, 118, kg, 03/26/23 17:27:00 EDT, Dry Weight Start Date: 06/24/23 Status: Ordered metFORMIN 1000 mg oral tablet 1 tablet = 1,000 mg, By Mouth, 2 times a day, # 180 tablet, 2 Refills, Maintenance, 06/24/23 12:52:00 EDT, Tablet, [facility] #[id number], Partial fill upon patient request if the prescription isfor a schedule II opioid drug., 180, cm, 06/24/23 1... Start Date: 06/24/23 Stop Date: 03/20/24 Status: Ordered Ozempic 2 mg/1.5 mL (1 mg dose) subcutaneous solution = 1 mg, Subcutaneous Infusion, Every 7 days, # 3 mL, 0 Refills, Maintenance, 08/01/23 9:08:00 EDT, [facility] #[id number], Partial fill upon patient request if the prescription is for a schedule II opioid drug., 1 mg Subcutaneous Infusion Every 7... Start Date: 08/01/23 Stop Date: 08/29/23 Status: Ordered simvastatin 40 mg oral tablet 40 mg, 1, tablet, By Mouth, Daily at bedtime, # 90 tablet, Refills 2, Tot. Refills 2, Maintenance, 06/24/23 12:52:00 EDT, Route to Pharmacy Electronically, [facility] #[id number], Partial fill upon patient request if the prescription is for a sche... Start Date: 06/24/23 Stop Date: 03/20/24 Status: Ordered Trulicity Pen 0.75 mg/0.5 mL subcutaneous solution 0.5 mL = 0.75 mg, Subcutaneous Injection, Every week, rotate injection sites, # 2 mL, 1 Refills, Maintenance, 08/29/23 11:49:00 EDT, Solution, [facility] #[id number], Partial fill upon patient request if the [...] team information Care Team Personnel Name: Larisa Truong NP Position: [facility] PCO Associate Professional Member Role: PCP Address: Address: [address] [place] [address] [address] [place] [address]- Care Team Related Persons Name: ASHA SUH Name: RAMESH SUH Address: home [address] [place] [id number] Name: HAJA SUH Address: home [address] [place] [address]
--- OUTSIDE RECORDS SUMMARY | 2024-07-15 19:02 | XMS_ITS | Continuity of Care Document ---
Author Organization [facility] Address [address] [place] [address]- Care Team Providers Care Is Manager Name Role Phone Larisa Truong NP Primary Care Physician [place] [facility] [place](s): 12/27/23 - 02/05/24 [facility] [address] [place] [id number] Attending Physician: Larisa Truong NP Allergies, Adverse Reactions, Alerts Substance Reaction Severity [...] 03/02/24 14:14:00 EDT, 02/03/24 14:14:00 EDT, Capsule, [facility][id number], Partial fill upon patient request if the [...] 06/24/23 12:52:00 EDT, Route to Pharmacy Electronically, [facility] #[id number], 180, cm, 06/24/23 11:02:00 EDT, Height, 118, kg, 03/26/23 17:27:00 EDT, Dry W... Start Date: 06/24/23 Status: Ordered Jardiance 10 mg oral tablet 1 tablet, By Mouth, Daily in AM, # 30 tablet, 3 Refills, Maintenance, 10/27/23 11:21:00 EST, [id number], 180, cm, 08/29/23 12:04:00 EDT, Height, 118, kg, 03/26/23 17:27:00 EDT, Dry Weight Start Date: 10/27/23 Status: Ordered Lantus Solostar Pen 100 units/mL subcutaneous solution = 10 units, Subcutaneous Injection, Daily at bedtime, # 15 mL, 1 Refills, Maintenance, 01/09/24 15:12:00 EST, Solution, [facility] #[id number], Partial fill upon patient request if the prescription is for a schedule II opioid drug., 180, cm, 01/07... Start Date: 01/09/24 Stop Date: 03/09/24 Status: Ordered losartan 25 mg oral tablet 1 tablet, By Mouth, Daily, # 90 tablet, 0 Refills, Maintenance, 12/29/23 10:39:00 EST, [facility] #[id number], 180, cm, 08/29/23 12:04:00 EDT, Height, 118, kg, 03/26/23 17:27:00 EDT, Dry Weight Start Date: 12/29/23 Status: Ordered metFORMIN 1000 mg oral tablet 1 tablet, By Mouth, 2 times a day, # 180 tablet, 0 Refills, Maintenance, 12/29/23 10:40:00 EST, [facility] #[id number], 180, cm, 08/29/23 12:04:00 EDT, Height, 118, kg, 03/26/23 17:27:00 EDT, DryWeight Start Date: 12/29/23 Status: Ordered Pen [place], 30 G x 8 mm BD Ultra Fine II See Instructions, # 300 each, Refills 2, Tot. Refills 2, Maintenance, use as directed for Type 2 Diabetes Mellitus, 01/09/24 15:13:00 EST, Supply, 180, cm, 01/07/24 11:05:00 EST, Height, 120, kg, 01/02/24 0:32:00 EST, Dry Weight Start Date: 01/09/24 Stop Date: 10/05/24 Status: Ordered Pen [place], 31 G x 8 mm BD Ultra [...] 12/29/23 10:39:00 EST, Route to Pharmacy Electronically, [facility] #[id number], 180, cm, 08/29/23 12:04:00 EDT, Height, 118, kg, 03/26/23 17:27:00 EDT, Dry Weight Start Date: 12/29/23 Status: Ordered Trulicity Pen 0.75 mg/0.5 mL subcutaneous solution 0.5 mL = 0.75 mg, Subcutaneous Injection, Every week, rotate injection sites, # 2 mL, 1 Refills, Maintenance, 08/29/23 11:49:00 EDT, Solution, [facility] #[id number], Partial fill upon patient request if the [...] Team Personnel Name: Beverly Elam RN Position[facility] RN Member Role: Primary Care Nurse Name: Aditi Plascencia Position: [facility] RN Supv Member Role: Primary Care Nurse Name: Larisa Truong NP Position: [facility] PCO Associate Professional Member Role: PCP Address: Address: [address] [place] [address] [address] [place] [address]- Care Team Related Persons Name: ASHA SUH Name: RAMESH SUH Address: home [address] [place] [id number] Name: HAJA SUH Address: home [address] [place] [address]
--- OUTSIDE RECORDS SUMMARY | 2024-07-15 19:02 | XMS_ITS | Continuity of Care Document ---
Author Organization [facility] Address [address] [place] [address]- Care Team Providers Care Rubber Tester Name Role Phone Dionne BARR, Larisa Primary Care Physician En[place] [facility] [place]s): 03/27/24 - 04/26/24 [facility] [address] [place] [address]- Allergies, Adverse Reactions, Alerts Substance Reaction Severity [...] capsule, 0 Refills, Maintenance, 03/21/24 9:52:00 EDT, [facility] #[id number], 180.34, cm, 03/20/2411:09:00 EDT, Height, 92, kg, [...] times a day, # 90 tablet, Refills 1, Maintenance, 04/23/24 12:51:00 EDT, Route to Pharmacy Electronically, [facility] #[id number], 180.34, cm, 04/10/24 13:14:00 EDT, Height, 92, kg, 03/20/24 10:59:00 EDT, Dry Weight Start Date: 04/23/24 Status: Ordered Lancets See Instructions, # 200 [...] 1 Refills, Maintenance, 01/09/24 15:12:00 EST, Solution, [facility] #[id number], Partial fill upon patient request if the prescription is for a schedule II opioid drug., 180, cm, 01/07... Start Date: 01/09/24 Stop Date: 03/09/24 Status: Ordered losartan 25 mg oral tablet 1 tablet, By Mouth, Daily, # 90 tablet, 0 Refills, Maintenance, 12/29/23 10:39:00 EST, [facility] #[id number], 180, cm, 08/29/23 12:04:00 EDT, Height, 118, kg, 03/26/23 17:27:00 EDT, Dry Weight Start Date: 12/29/23 Status: Ordered metFORMIN 1000 mg oral tablet 1 tablet, By Mouth, 2 times a day, # 180 tablet, 0 Refills, Maintenance, 12/29/23 10:40:00 EST, [facility] #[id number], 180, cm, 08/29/23 12:04:00 EDT, Height, 118, [...] 03/27/24 Stop Date: 09/23/24 Status: Ordered Pen [place], 31 G x 8 mm BD Ultra Fine III See Instructions, # 100 each, Refills 5, Tot. Refills 5, Maintenance, use as directed for Type 2 Diabetes Mellitus, 01/18/24 13:59:00 EST, Supply, 180, cm, 01/18/24 13:08:00 EST, Height, 120, kg, 01/02/24 0:32:00 EST, Dry Weight Start Date: 01/18/24 Stop Date: 8/26/24 Status: Ordered simvastatin 20 mg oral tablet [...] Care Nurse Name: Larisa Truong NP Position: [facility] PCO Associate Professional Member Role: PCP Address: Address: [address] [place] [address] [address] [place] [address]- Name: Ronda Madison RN Position: S RN Member Role: Primary Care Nurse Care Team Related Persons Name: ASHA SUH Name: RAMESH SUH Address: home [address] [place] [id number] Name: HAJA SUH Address: home [address] [place] [address]
--- OUTSIDE RECORDS SUMMARY | 2024-07-15 19:02 | XMS_ITS | Continuity of Care Document ---
Author Organization [facility] Address [address] [place] [address]- Care Team Providers Care Protection Mgr Name Role Phone Dionne BARR, Larisa Primary Care Physician Encounter [facility] [place](s): 01/25/24 - 02/24/24 [facility] [address] [place] [address]- Allergies, Adverse Reactions, Alerts Substance Reaction Severity [...] 03/02/24 14:14:00 EDT, 02/03/24 14:14:00 EDT, Capsule, [facility] #[id number], Partial fill upon patient request if the [...] 1 Refills, Maintenance, 01/09/24 15:12:00 EST, Solution, [facility] #[id number], Partial fill upon patient request if the prescription is for a schedule II opioid drug., 180, cm, 01/07... Start Date: 01/09/24 Stop Date: 03/09/24 Status: Ordered losartan 25 mg oral tablet 1 tablet, By Mouth, Daily, # 90 tablet, 0 Refills, Maintenance, 12/29/23 10:39:00 EST, [facility] #[id number], 180, cm, 08/29/23 12:04:00 EDT, Height, 118, [...] tablet, 0 Refills, Maintenance, 12/29/23 10:40:00 EST, [facility] #[id number], 180, cm, 08/29/23 12:04:00 EDT, Height, 118, [...] drug. Start Date: 02/17/24 Status: Ordered Pen [place], 30 G x 8 mm BD Ultra Fine II See Instructions, # 300 each, Refills 2, Tot. Refills 2, Maintenance, use as directed for Type 2 Diabetes Mellitus, 01/09/24 15:13:00 EST, Supply, 180, cm, 01/07/24 11:05:00 EST, Height, 120, kg, 01/02/24 0:32:00 EST, Dry Weight Start Date: 01/09/24 Stop Date: 10/05/24 Status: Ordered Pen [place], 31 G x 8 mm BD Ultra [...] Care Nurse Name: Larisa Truong NP Position: [facility] PCO Associate Professional Member Role: PCP Address: Address: [address] [place] [address] [address] [place], [place] [address] Name: Ronda Madison RN Position: S RN Member Role: Primary Care Nurse Care Team Related Persons Name: ASHA SUH Name: RAMESH SUH Address: home [address] [place] [address] Name: HAJA SUH Address: home [address] [place] [address]
--- OUTSIDE RECORDS SUMMARY | 2024-07-15 19:02 | XMS_ITS | Continuity of Care Document ---
Author Organization [facility] Adult Address [address] [place] [address]- Care Team Providers Care Patient'S Librarian Name Role Phone Dionne BARR, Larisa Primary Care Physician [facility] [facility] [place](s): 01/18/24 - 01/25/24 [facility] [address] [place] [address]- Encounter Diagnosis Status post amputation of right great toe(Discharge Diagnosis) - 01/19/24 Amputation of toe of left foot(Discharge Diagnosis) - 01/19/24 Diabetic foot ulcer with osteomyelitis(Discharge Diagnosis) - 01/19/24 Severe obesity (BMI 35.0-39.9) with comorbidity(Discharge Diagnosis) - 01/19/24 Hypertension(Discharge Diagnosis) - 01/19/24 Attending Physician: Leandra SEQUEIRA, [facility] Allergies, Adverse Reactions, Alerts Substance Reaction Severity Status codeine Active naproxen Active Immunizations Given and Recorded Vaccine Date Status Refusal Reason SARS-CoV-2 (COVID-19) mRNA-1273 vaccine 11/18/21 R ecorded SARS-CoV-2 (COVID-19) mRNA-1273 vaccine 10/07/21 R ecorded tetanus/diphtheria/pertussis, acel(Tdap) 10/11/14 Recorded Medications Freestyle Lite Test Strips See Instructions, # [...] 06/24/23 12:52:00 EDT, Route to Pharmacy Electronically, [facility][id number], 180, cm, 06/24/23 11:02:00 EDT, Height, 118, kg, 03/26/23 17:27:00 EDT, Dry W... Start Date: 06/24/23 Status: Ordered Jardiance 10 mg oral tablet 1 tablet, By Mouth, Daily in AM, # 30 tablet, 3 Refills, Maintenance, 10/27/23 11:21:00 EST, [facility] #[id number], 180, cm, 08/29/23 12:04:00 EDT, Height, 118, kg, 03/26/23 17:27:00 EDT, Dry Weight Start Date: 10/27/23 Status: Ordered Lantus Solostar Pen 100 units/mL subcutaneous solution = 10 units, Subcutaneous Injection, Daily at bedtime, # 15 mL, 1 Refills, Maintenance, 01/09/24 15:12:00 EST, Solution, [facility] #[id number], Partial fill upon patient request if the prescription is for a schedule II opioid drug., 180, cm, 01/07... Start Date: 01/09/24 Stop Date: 03/09/24 Status: Ordered losartan 25 mg oral tablet 1 tablet, By Mouth, Daily, # 90 tablet, 0 Refills, Maintenance, 12/29/23 10:39:00 EST, [facility] #[id number], 180, cm, 08/29/23 12:04:00 EDT, Height, 118, kg, 03/26/23 17:27:00 EDT, Dry Weight Start Date: 12/29/23 Status: Ordered metFORMIN 1000 mg oral tablet 1 tablet, By Mouth, 2 times a day, # 180 tablet, 0 Refills, Maintenance, 12/29/23 10:40:00 EST, [facility] #[id number], 180, cm, 08/29/23 12:04:00 EDT, Height, 118, kg, 03/26/23 17:27:00 EDT, DryWeight Start Date: 12/29/23 Status: Ordered minocycline 100 mg oral capsule 1 capsule = 100 mg, By Mouth, Every 12 hours, for 10 days, # 20 capsule, 0 Refills, Acute 01/27/24 15:37:00 EST, 01/17/24 15:37:00 EST, Capsule, [facility] #[id number], Partial fill upon patient request if the prescription is for a schedule II opi... Start Date: 01/17/24 Stop Date: 01/27/24 Status: Ordered Pen [place], 30 G x 8 mm BD Ultra Fine II See Instructions, # 300 each, Refills 2, Tot. Refills 2, Maintenance, use as directed for Type 2 Diabetes Mellitus, 01/09/24 15:13:00 EST, Supply, 180, cm, 01/07/24 11:05:00 EST, Height, 120, kg, 01/02/24 0:32:00 EST, Dry Weight Start Date: 01/09/24 Stop Date: 10/05/24 Status: Ordered Pen [place], 31 G x 8 mm BD Ultra [...] 12/29/23 10:39:00 EST, Route to Pharmacy Electronically, [facility] #[id number], 180, cm, 08/29/23 12:04:00 EDT, Height, 118, kg, 03/26/23 17:27:00 EDT, Dry Weight Start Date: 12/29/23 Status: Ordered Trulicity Pen 0.75 mg/0.5 mL subcutaneous solution 0.5 mL = 0.75 mg, Subcutaneous Injection, Every week, rotate injection sites, # 2 mL, 1 Refills, Maintenance, 08/29/23 11:49:00 EDT, Solution, [facility] #[id number], Partial fill upon patient request if the [...] Effective Dates Health Status Clinical Service Informant Status post amputation of right great toe Discharge Diagnosis 01/19/24 Amputation of toe of left foot Discharge Diagnosis 01/19/24 Diabetic foot ulcer with osteomyelitis Discharge Diagnosis 01/19/24 Severe obesity (BMI 35.0-39.9) with comorbidity Discharge Diagnosis 01/19/24 Hypertension Discharge Diagnosis 01/19/24 Vital Signs Most recent to oldest [Reference Range]: 1 Height 180 cm (01/18/24 1:08 PM) Weight 116 kg (01/18/24 1:08 PM) Oxygen Saturation [94-100 %] 97 % (01/18/24 1:08 PM) Pulse Rate [55-90 bpm] 81 bpm (01/18/24 1:08 PM) Body Mass Index [18.5-24.99 kg/m2] 35.8 kg/m2 *>HHI* (01/18/24 1:08 PM) Blood Pressure [90-138/55-84 mm Hg] 119/ 69mm Hg (01/18/24 1:08 PM) Mode of Delivery (Oxygen) Room air (01/18/24 1:08 PM) Blood pressure sites Arm, left (01/18/24 1:08 PM) Weight Obtained Via Standing scale (01/18/24 1:08 PM) Social History Social History Type Response Smoking Status Former smoker, quit more than 30 days ago; Other: quit more than 10 years, smoked for three years; entered on: 12/20/22 Sex Note * Virginia Herman: PERFORM, SIGN, VERIFY Event Display: Patient Education/Instruction Authored Date: [id number] [facility] *[facility] [place] [facility] Clinical Summary Name EDWINA SUH Age 53 Years 1970 PCP Dionne BELT LOOP MAKER, Larisa PCP Visit Date 01/18/2024 13:02:00 Additional Instructions: Scheduled Appointments?? Future Appointments ?*[facility] [address]??[facility] ?Phone:??--?Fax:??-- ?Appt. Date:??01/31/2024?12:45 PM ?Scheduled Provider:??Efren Key DO ?*[facility],??[place],??[address] ?Phone:??--?Fax:??-- ?Appt. Date:??02/03/2024?2:30 PM ?Scheduled Provider:??Sandra Rodriguez NP Follow-Up Instructions ?? With: Address: When: Larisa Truong Comments: 1 month f/u: DM foot Diagnosis Medications: Please continue your medications until treatment is completed or stopped by your provider. Discuss any questions related to medications with your provider. New Medications [facility] #[id number], [address], [place] [id number], [phone] Durable Medical Equipment (Pen [place], 31 G x 8 mm BD Ultra Fine III) use as directed for Type 2 Diabetes Mellitus. Refills: 5. Next Dose: Medications to Continue with No Changes [facility] #[id number], [address], [place] [id number], [phone] Durable Medical Equipment (Freestyle Lite Test Strips) Use for checking blood sugar four times daily for type 2 diabetes. Refills: 2. Next Dose: These medications were not printed or sent to your pharmacy dulaglutide (Trulicity Pen 0.75 mg/0.5 mL subcutaneous solution) 0.5 Milliliter Subcutaneous Injection every week for 4 week(s). rotate injection sites. Refills: 1. Next Dose: Durable Medical Equipment (Pen [place], 30 G x 8 mm BD Ultra Fine II) use as directed for Type 2 Diabetes Mellitus. Refills: 2. Next Dose: empagliflozin (Jardiance 10 mg oral tablet) 1 tab(s) Oral Daily in the morning. Refills: 3. Next Dose: Ibuprofen (ibuprofen 800 mg oral tablet) 1 tab(s) Oral 3 times a day. Refills: 2. Next Dose: Insulin Glargine (Lantus Solostar Pen 100 units/mL subcutaneous solution) 10 unit(s) Subcutaneous Injection Daily at Bedtime for 30 Days. Refills: 1. Next Dose: Losartan (losartan 25 mg oral tablet) 1 tab(s) Oral Daily. Refills: 0. Next Dose: Metformin (metFORMIN 1000 mg oral tablet) 1 tab(s) Oral twice a day. Refills: 0. Next Dose: Minocycline (minocycline 100 mg oral capsule) 1 capsule Oral every 12 hours for 10 Days. Refills: 0. Next Dose: Simvastatin (simvastatin 40 mg oral tablet) 1 tab(s) Oral Daily at Bedtime. Refills: 0. Next Dose: Allergy Info:?? naproxen; codeine Medications Given This Visit Future Orders ?No future orders Vital Signs Height 180 cm Weight 116 kg BMI 35.8 kg/m2 Blood Pressure 119 mm Hg/69 mm Hg Temperature Pulse Rate 81 bpm Respiratory Rate 02 Sat Mode of Delivery 97 %/Room air You can now view a summary of your hospital visit from the comfort of your home through a free online portal called [email or web address]. [email or web address] is a website that allows you to securely view your medical information including discharge summary, medications and follow-up visits. ??You can alsosend a secure electronic message to your doctor???s office to request appointments, renew medications or just ask a question. You can enroll at [email or web address] or register during your next office [...] primary care provider, you may find a [facility] provider by calling [facility] [employer] Link at [phone]. [facility], in keeping with [facility] guidance, no longer requires face masks for staff, patientsor visitors in most situations. Similar to time spent indoors at other locations, there is the chance that you were exposed to respiratory viruses during your time with us (such as flu or COVID-19).? If you develop symptoms concerning for a viral respiratory infection, please seek testing (and treatment if indicated) from your medical provider or home test kit. For information about the plan of care [...] Care Nurse Name: Larisa Truong NP Position: [facility] PCO Associate Professional Member Role: PCP Address: Address: [address] [place] [address] [address] [place] [address]- Care Team Related Persons Name: ASHA SUH Name: RAMESH SUH Address: home [address] [place] [address] Name: HAJA SUH Address: home [address] [place] [address]
--- OUTSIDE RECORDS SUMMARY | 2024-07-15 19:02 | XMS_ITS | Continuity of Care Document ---
Author Organization [facility] Adult Address [address] [place] [address]- Care Team Providers Care Math And Science Division Chair Name Role Phone Terrence BARR, Larisa Loyd Primary Care Physician [phone] Encounter [facility] [place] Date(s): 04/12/23 - 05/12/[address] [facility] Adult [address] [place] [address]- Attending Physician: AdmAnat lozada Admitting Physician: Admtr, Anat Referring Physician: Admtr, Ar8 Allergies, Adverse Reactions, Alerts Substance Reaction Severity Status codeine Active naproxen Active Immunizations Given and Recorded Vaccine Date Status Refusal Reason SARS-CoV-2 (COVID-19) mRNA-1273 vaccine 11/18/21 R ecorded SARS-CoV-2 (COVID-19) mRNA-1273 vaccine 10/07/21 R ecorded tetanus/diphtheria/pertussis, acel(Tdap) 10/11/14 Recorded Medications ibuprofen 800 mg oral tablet 1, tablet, By Mouth, 3 times a day, # 90 tablet, Refills 2, Tot. Refills 2, Maintenance, 05/12/23 9:18:00 EDT, Route to Pharmacy Electronically, [facility] #[id number], 180, cm, 04/12/23 8:37:00 EDT, Height, 118, kg, 03/26/23 17:27:00 EDT, Dry Weight Start Date: 05/12/23 Stop Date: 06/12/23 Status: Ordered losartan 25 mg oral tablet 25 mg, 1, tablet, By Mouth, Daily, # 90 tablet, Refills 0, Tot. Refills 0, Maintenance, 03/17/23 13:29:00 EDT, Route to Pharmacy Electronically, [facility]/pharmacy #1234, Partial fill upon patient request if the prescription is for a schedule II opioid drug... Start Date: 03/17/23 Stop Date: 06/15/23 Status: Ordered metFORMIN 1000 mg oral tablet 1 tablet = 1,000 mg, By Mouth, 2 times a day, # 180 tablet, 2 Refills, Maintenance, 12/20/22 11:02:00 EST, Tablet, [facility], Partial fill upon patient request if the prescription is for a schedule II opioid drug., 180, cm, 12/20/22 10:05:00... Start Date: 12/20/22 Stop Date: 09/16/23 Status: Ordered simvastatin 40 mg oral tablet 40 mg, 1, tablet, By Mouth, Daily at bedtime, # 90 tablet, Refills 2, Tot. Refills 2, Maintenance, 03/17/23 13:28:00 EDT, Route to Pharmacy Electronically, [facility], Partial fill upon patient request if the prescription is for a schedule II... Start Date: 03/17/23 Stop Date: 12/12/23 Status: Ordered Trulicity Pen 0.75 mg/0.5 mL subcutaneous solution 0.5 mL = 0.75 mg, Subcutaneous Injection, Every week, rotate injection sites, # 2.5 mL, 0 Refills, Maintenance, 03/17/23 13:29:00 EDT, Solution, [facility], Partial fill upon patient request if the prescription is for a schedule II opioid drug... Start Date: 03/17/23 Stop Date: 04/16/23 Status: Ordered Trulicity Pen 1.5 mg/0.5 mL subcutaneous solution 0.5 mL = 1.5 mg, Subcutaneous Injection, Every week, rotate injection sites, # 2 mL, 3 Refills, Maintenance, 05/02/23 8:44:00 EDT, Solution, [facility], Partial fill upon patient request if the prescription is for a schedule II opioid drug., 1... Start Date: 05/02/23 Stop Date: 08/22/23 Status: Ordered Problem List Condition Confirmation Course [...] Team Personnel Name: Larisa Ocampo NP Position: S PCO Associate Professional Member Role: PCP Address: Address: [address] [place] [address] [address]rd [place] [address]- Care Team Related Persons Name: ASHA SUH Name: RAMESH SUH Address: home [address] [place] [address] Name: HAJA SUH Address: home [address] [place] [address]
--- OUTSIDE RECORDS SUMMARY | 2024-07-15 19:02 | XMS_ITS | Continuity of Care Document ---
Author Organization [facility] Adult Address [address] [place] [address]- Care Team Providers Care Associate Director Of Development Name Role Phone Dionne BARR, Larisa Primary Care Physician [place] [facility] [place] 10/27/23 - 11/26/[address] [facility] Adult [address] [place] [address]- Allergies, Adverse Reactions, Alerts Substance Reaction Severity [...] 06/24/23 12:52:00 EDT, Route to Pharmacy Electronically, [facility] #[id number], 180, cm, 06/24/23 11:02:00 EDT, Height, 118, kg, 03/26/23 17:27:00 EDT, Dry W... Start Date: 06/24/23 Status: Ordered Jardiance 10 mg oral tablet 1 tablet, By Mouth, Daily in AM, # 30 tablet, 3 Refills, Maintenance, 10/27/23 11:21:00 EST, [facility] #[id number], 180, cm, 08/29/23 12:04:00 EDT, Height, 118, [...] tablet, 2 Refills, Maintenance, 06/24/23 12:52:00 EDT, [facility] #[id number], 180, cm, 06/24/23 11:02:00 EDT, Height, 118, kg, 03/26/23 17:27:00 EDT, Dry Weight Start Date: 06/24/23 Status: Ordered metFORMIN 1000 mg oral tablet 1 tablet = 1,000 mg, By Mouth, 2 times a day, # 180 tablet, 2 Refills, Maintenance, 06/24/23 12:52:00 EDT, Tablet, [facility] #[id number], Partial fill upon patient request if the prescription isfor a schedule II opioid drug., 180, cm, 06/24/23 1... Start Date: 06/24/23 Stop Date: 03/20/24 Status: Ordered Ozempic 2 mg/1.5 mL (1 mg dose) subcutaneous solution = 1 mg, Subcutaneous Infusion, Every 7 days, # 3 mL, 0 Refills, Maintenance, 08/01/23 9:08:00 EDT, [facility] #[id number], Partial fill upon patient request if the prescription is for a schedule II opioid drug., 1 mg Subcutaneous Infusion Every 7... Start Date: 08/01/23 Stop Date: 08/29/23 Status: Ordered simvastatin 40 mg oral tablet 40 mg, 1, tablet, By Mouth, Daily at bedtime, # 90 tablet, Refills 2, Tot. Refills 2, Maintenance, 06/24/23 12:52:00 EDT, Route to Pharmacy Electronically, [facility] #[id number], Partial fill upon patient request if the prescription is for a sche... Start Date: 06/24/23 Stop Date: 03/20/24 Status: Ordered Trulicity Pen 0.75 mg/0.5 mL subcutaneous solution 0.5 mL = 0.75 mg, Subcutaneous Injection, Every week, rotate injection sites, # 2 mL, 1 Refills, Maintenance, 08/29/23 11:49:00 EDT, Solution, [facility] #[id number], Partial fill upon patient request if the [...] Team Personnel Name: Larisa Truong NP Position: [facility] PCO Associate Professional Member Role: PCP Address: Address: [address] [place] [address] [address] [place] [address]- Care Team Related Persons Name: ASHA SUH Name: RAMESH SUH Address: home [address] [place] [id number] Name: HAJA SUH Address: home [address] [place] [address]
--- OUTSIDE RECORDS SUMMARY | 2024-07-15 19:02 | XMS_ITS | Continuity of Care Document ---
Author Organization [facility] Address [address] [place] [address]- Care Team Providers Care Concrete Tester Name Role Phone Dionne BARR, Larisa Primary Care Physician Encounter [facility] [place] Date(s): 04/30/24 - 05/30/24 [facility] [address] [place] [address]- Allergies, Adverse Reactions, Alerts Substance Reaction Severity Status codeine 1 Active naproxen Active 1Pt states this medication makes him dizzy . Immunizations Given and Recorded Vaccine Date Status Refusal Reason SARS-CoV-2 (COVID-19) mRNA-1273 vaccine 11/18/21 R ecorded SARS-CoV-2 (COVID-19) mRNA-1273 vaccine 10/07/21 R ecorded tetanus/diphtheria/pertussis, acel(Tdap) 10/11/14 Recorded Medications Mendoza FreeStyle Candelario 3 CGM Mendoza FreeStyle Candelario 3 CGM, See Instructions, # 1 each, Refills 0, Tot. Refills 0, Maintenance, [facility] FreeStyle Candelario 3 CGM, 05/10/24 10:02:00 EDT, Supply, 180.34, cm, 05/04/24 15:47:00 EDT, Height, 92, kg, 03/20/24 10:59:00 EDT, Dry Weight Start Date: 05/10/24 Status: Ordered Freestyle Lite Test Strips See [...] a day, # 90 tablet, Refills 1, Tot. Refills 1, Maintenance, 05/04/24 16:16:00 EDT, Route to Pharmacy Electronically, [facility] #[id number], 180.34, cm, 05/04/24 15:47:00 EDT, Height, 92, kg, 03/20/24 10:59:00 EDT, Dry... Start Date: 05/04/24 Status: Ordered Lancets See Instructions, # 200 [...] 1 Refills, Maintenance, 01/09/24 15:12:00 EST, Solution, [facility] #[id number], Partial fill upon patient request if the prescription is for a schedule II opioid drug., 180, cm, 01/07... Start Date: 01/09/24 Stop Date: 03/09/24 Status: Ordered losartan 25 mg oral tablet 1 tablet, By Mouth, Daily, # 90 tablet, 3 Refills, Maintenance, 05/04/24 16:17:00 EDT, [facility] #[id number], 180.34, cm, 05/04/24 15:47:00 EDT, Height, 92, kg, 03/20/24 10:59:00 EDT, Dry Weight Start Date: 05/04/24 Status: Ordered metFORMIN 1000 mg oral tablet 1 tablet, By Mouth, 2 times a day, # 180 tablet, 3 Refills, Maintenance, 05/04/24 16:17:00 EDT, [facility] #[id number], 180.34, cm, 05/04/24 15:47:00 EDT, Height, 92, kg, 03/20/24 10:59:00 EDT, Dry Weight Start Date: 05/04/24 Stop Date: 04/29/25 Status: Ordered One Touch Ultra 2 Glucose [...] 03/27/24 Stop Date: 09/23/24 Status: Ordered Pen [place], 31 G x 8 mm BD Ultra [...] Daily at bedtime, # 90 tablet, Refills 3, Tot. Refills 3, Maintenance, 05/04/24 16:18:00 EDT, Route to Pharmacy Electronically, [facility] #[id number], Partial fill upon patient request if the prescription is for a sche... Start Date: 05/04/24 Stop Date: 04/29/25 Status: Ordered Problem List Condition Confirmation Course Effective Dates Status H ealth Status Informant Amputation of toe of left foot Confirmed Active Balanitis Confirmed Active Status post amputation of right great toe Confirmed Active Hyperglycemia due to diabetes mellitus Confirmed Active Hyperlipidemia associated with type 2 diabetes mellitus Confirmed Active Hypertension associated with type 2 diabetes mellitus Confirmed Active Hypokalemia Confirmed Active Obese class [...] Associate Professional Member Role: PCP Address: Address: [address] [place] [address] [address] [place], [place] [address] Name: Ronda Madison RN Position: S RN Member Role: Primary Care Nurse Care Team Related Persons Name: ASHA SUH Name: RAMESH SUH Address: home [address] [place] [address] Name: HAJA SUH Address: home [address] [place] [address]
--- OUTSIDE RECORDS SUMMARY | 2024-07-15 19:02 | XMS_ITS | Continuity of Care Document ---
Author Organization [facility] Adult Address [address] [place] [address]- Care Team Providers Care Livestock Agent Name Role Phone Dionne BARR, Larisa Primary Care Physician Encounter [facility] Date(s): 12/29/23 - 01/28/24 [facility] [address] [place] [address]- Allergies, Adverse Reactions, Alerts Substance Reaction Severity [...] 06/24/23 12:52:00 EDT, Route to Pharmacy Electronically, [facility] #[id number], 180, cm, 06/24/23 11:02:00 EDT, Height, 118, kg, 03/26/23 17:27:00 EDT, Dry W... Start Date: 06/24/23 Status: Ordered Jardiance 10 mg oral tablet 1 tablet, By Mouth, Daily in AM, # 30 tablet, 3 Refills, Maintenance, 10/27/23 11:21:00 EST, [facility] #[id number], 180, cm, 08/29/23 12:04:00 EDT, Height, 118, kg, 03/26/23 17:27:00 EDT, Dry Weight Start Date: 10/27/23 Status: Ordered Lantus Solostar Pen 100 units/mL subcutaneous solution = 10 units, Subcutaneous Injection, Daily at bedtime, # 15 mL, 1 Refills, Maintenance, 01/09/24 15:12:00 EST, Solution, [facility] #[id number], Partial fill upon patient request if the prescription is for a schedule II opioid drug., 180, cm, 01/07... Start Date: 01/09/24 Stop Date: 03/09/24 Status: Ordered losartan 25 mg oral tablet 1 tablet, By Mouth, Daily, # 90 tablet, 0 Refills, Maintenance, 12/29/23 10:39:00 EST, [facility] #[id number], 180, cm, 08/29/23 12:04:00 EDT, Height, 118, kg, 03/26/23 17:27:00 EDT, Dry Weight Start Date: 12/29/23 Status: Ordered metFORMIN 1000 mg oral tablet 1 tablet, By Mouth, 2 times a day, # 180 tablet, 0 Refills, Maintenance, 12/29/23 10:40:00 EST, [facility] #[id number], 180, cm, 08/29/23 12:04:00 EDT, Height, 118, kg, 03/26/23 17:27:00 EDT, DryWeight Start Date: 12/29/23 Status: Ordered Pen [place], 30 G x 8 mm BD Ultra Fine II See Instructions, # 300 each, Refills 2, Tot. Refills 2, Maintenance, use as directed for Type 2 Diabetes Mellitus, 01/09/24 15:13:00 EST, Supply, 180, cm, 01/07/24 11:05:00 EST, Height, 120, kg, 01/02/24 0:32:00 EST, Dry Weight Start Date: 01/09/24 Stop Date: 10/05/24 Status: Ordered Pen [place], 31 G x 8 mm BD Ultra [...] 12/29/23 10:39:00 EST, Route to Pharmacy Electronically, [facility] #[id number], 180, cm, 08/29/23 12:04:00 EDT, Height, 118, kg, 03/26/23 17:27:00 EDT, Dry Weight Start Date: 12/29/23 Status: Ordered Trulicity Pen 0.75 mg/0.5 mL subcutaneous solution 0.5 mL = 0.75 mg, Subcutaneous Injection, Every week, rotate injection sites, # 2 mL, 1 Refills, Maintenance, 08/29/23 11:49:00 EDT, Solution, [facility] #[id number], Partial fill upon patient request if the [...] Primary Care Nurse Name: Aditi Plascencia Position: [facility] RN Supv Member Role: Primary Care Nurse Name: Larisa Truong NP Position: [facility] PCO Associate Professional Member Role: PCP Address: Address: [address] [place] [address]- Care Team Related Persons Name: ASHA SUH Name: RAMESH SUH Address: home [address] [place] [address] Name: HAJA SUH Address: home [address] [place] [address]
--- OUTSIDE RECORDS SUMMARY | 2024-07-15 19:02 | XMS_ITS | Continuity of Care Document ---
Author Organization [facility] Adult Address [address] [place] [address]- Care Team Providers Care Rotor Casting Machine Operator Name Role Phone Dionne BARR, Larisa Primary Care Physician Encounter [facility] [place] Date(s): 01/03/24 - 02/02/24 [facility] Adult [address] [place] [address]- Allergies, Adverse Reactions, Alerts Substance Reaction Severity [...] 06/24/23 12:52:00 EDT, Route to Pharmacy Electronically, [facility] #[id number], 180, cm, 06/24/23 11:02:00 EDT, Height, 118, kg, 03/26/23 17:27:00 EDT, Dry W... Start Date: 06/24/23 Status: Ordered Jardiance 10 mg oral tablet 1 tablet, By Mouth, Daily in AM, # 30 tablet, 3 Refills, Maintenance, 10/27/23 11:21:00 EST, [facility] #[id number], 180, cm, 08/29/23 12:04:00 EDT, Height, 118, kg, 03/26/23 17:27:00 EDT, Dry Weight Start Date: 10/27/23 Status: Ordered Lantus Solostar Pen 100 units/mL subcutaneous solution = 10 units, Subcutaneous Injection, Daily at bedtime, # 15 mL, 1 Refills, Maintenance, 01/09/24 15:12:00 EST, Solution, [facility] #[id number], Partial fill upon patient request if the prescription is for a schedule II opioid drug., 180, cm, 01/07... Start Date: 01/09/24 Stop Date: 03/09/24 Status: Ordered losartan 25 mg oral tablet 1 tablet, By Mouth, Daily, # 90 tablet, 0 Refills, Maintenance, 12/29/23 10:39:00 EST, [facility] #[id number], 180, cm, 08/29/23 12:04:00 EDT, Height, 118, kg, 03/26/23 17:27:00 EDT, Dry Weight Start Date: 12/29/23 Status: Ordered metFORMIN 1000 mg oral tablet 1 tablet, By Mouth, 2 times a day, # 180 tablet, 0 Refills, Maintenance, 12/29/23 10:40:00 EST, [facility] #[id number], 180, cm, 08/29/23 12:04:00 EDT, Height, 118, kg, 03/26/23 17:27:00 EDT, DryWeight Start Date: 12/29/23 Status: Ordered Pen Imlay, 30 G x 8 mm BD Ultra Fine II See Instructions, # 300 each, Refills 2, Tot. Refills 2, Maintenance, use as directed for Type 2 Diabetes Mellitus, 01/09/24 15:13:00 EST, Supply, 180, cm, 01/07/24 11:05:00 EST, Height, 120, kg, 01/02/24 0:32:00 EST, Dry Weight Start Date: 01/09/24 Stop Date: 10/05/24 Status: Ordered Pen Imlay, 31 G x 8 mm BD Ultra [...] 12/29/23 10:39:00 EST, Route to Pharmacy Electronically, [facility] #[id number], 180, cm, 08/29/23 12:04:00 EDT, Height, 118, kg, 03/26/23 17:27:00 EDT, Dry Weight Start Date: 12/29/23 Status: Ordered Trulicity Pen 0.75 mg/0.5 mL subcutaneous solution 0.5 mL = 0.75 mg, Subcutaneous Injection, Every week, rotate injection sites, # 2 mL, 1 Refills, Maintenance, 08/29/23 11:49:00 EDT, Solution, [facility] #[id number], Partial fill upon patient request if the [...] Primary Care Nurse Name: Aditi Plascencia Position: [facility] RN Supv Member Role: Primary Care Nurse Name: Larisa Truong NP Position: [facility] PCO Associate Professional Member Role: PCP Address: Address: [address] [place] [address]- Care Team Related Persons Name: ASHA SUH Name: RAMESH SUH Address: home [address] [place] [address] Name: HAJA SUH Address: home [address] [place] [address]
--- OUTSIDE RECORDS SUMMARY | 2024-07-15 19:02 | XMS_ITS | Continuity of Care Document ---
Author Organization [facility] Address [address] [place] [address]- Care Team Providers Care Manager Bilingual Name Role Phone Dionne BARR, Larisa Primary Care Physician Encounter [facility] [place] Date(s): 01/17/24 - 01/24/24 [facility] [address] [place] [address]- Attending Physician: Michael BARR, Sandra Contreras Admitting Physician: Michael BARR, Sandra Contreras Referring Physician: Larisa Truong NP Allergies, Adverse Reactions, [...] 06/24/23 12:52:00 EDT, Route to Pharmacy Electronically, [facility] #[id number], 180, cm, 06/24/23 11:02:00 EDT, Height, 118, kg, 03/26/23 17:27:00 EDT, Dry W... Start Date: 06/24/23 Status: Ordered Jardiance 10 mg oral tablet 1 tablet, By Mouth, Daily in AM, # 30 tablet, 3 Refills, Maintenance, 10/27/23 11:21:00 EST, [facility] #[id number], 180, cm, 08/29/23 12:04:00 EDT, Height, 118, kg, 03/26/23 17:27:00 EDT, Dry Weight Start Date: 10/27/23 Status: Ordered Lantus Solostar Pen 100 units/mL subcutaneous solution = 10 units, Subcutaneous Injection, Daily at bedtime, # 15 mL, 1 Refills, Maintenance, 01/09/24 15:12:00 EST, Solution, [facility] #[id number], Partial fill upon patient request if the prescription is for a schedule II opioid drug., 180, cm, 01/07... Start Date: 01/09/24 Stop Date: 03/09/24 Status: Ordered losartan 25 mg oral tablet 1 tablet, By Mouth, Daily, # 90 tablet, 0 Refills, Maintenance, 12/29/23 10:39:00 EST, [facility] #[id number], 180, cm, 08/29/23 12:04:00 EDT, Height, 118, kg, 03/26/23 17:27:00 EDT, Dry Weight Start Date: 12/29/23 Status: Ordered metFORMIN 1000 mg oral tablet 1 tablet, By Mouth, 2 times a day, # 180 tablet, 0 Refills, Maintenance, 12/29/23 10:40:00 EST, [facility] #[id number], 180, cm, 08/29/23 12:04:00 EDT, Height, 118, kg, 03/26/23 17:27:00 EDT, DryWeight Start Date: 12/29/23 Status: Ordered minocycline 100 mg oral capsule 1 capsule = 100 mg, By Mouth, Every 12 hours, for 10 days, # 20 capsule, 0 Refills, Acute 01/27/24 15:37:00 EST, 01/17/24 15:37:00 EST, Capsule, [facility] #[id number], Partial fill upon patient request if the prescription is for a schedule II opi... Start Date: 01/17/24 Stop Date: 01/27/24 Status: Ordered Pen Orinda, 30 G x 8 mm BD Ultra Fine II See Instructions, # 300 each, Refills 2, Tot. Refills 2, Maintenance, use as directed for Type 2 Diabetes Mellitus, 01/09/24 15:13:00 EST, Supply, 180, cm, 01/07/24 11:05:00 EST, Height, 120, kg, 01/02/24 0:32:00 EST, Dry Weight Start Date: 01/09/24 Stop Date: 10/05/24 Status: Ordered Pen Orinda, 31 G x 8 mm BD Ultra [...] 12/29/23 10:39:00 EST, Route to Pharmacy Electronically, [facility] #[id number], 180, cm, 08/29/23 12:04:00 EDT, Height, 118, kg, 03/26/23 17:27:00 EDT, Dry Weight Start Date: 12/29/23 Status: Ordered Trulicity Pen 0.75 mg/0.5 mL subcutaneous solution 0.5 mL = 0.75 mg, Subcutaneous Injection, Every week, rotate injection sites, # 2 mL, 1 Refills, Maintenance, 08/29/23 11:49:00 EDT, Solution, [facility] #[id number], Partial fill upon patient request if the [...] Active Type 2 diabetes mellitus Confirmed Active Vital Signs Most recent to oldest [Reference Range]: 1 Height 180 cm (01/17/24 3:19 PM) Weight 119 kg (01/17/24 3:19 PM) Oxygen Saturation [94-100 %] 97 % (01/17/24 3:19 PM) Pulse Rate [55-90 bpm] 97 bpm *H* (01/17/24 3:19 PM) Body Mass Index [18.5-24.99 kg/m2] 36.73 kg/m2 *>HHI* (01/17/24 3:19 PM) Blood Pressure [90-138/55-84 mm Hg] 120/ 80mm Hg (01/17/24 3:19 PM) Blood pressure sites Arm, left (01/17/24 3:19 PM) Weight Obtained Via Patient/family state d (01/17/24 3:19 PM) Social History Social History Type Response [...] Associate Professional Member Role: PCP Address: Address: [address] [facility] [address]rd [place] [address]- Care Team Related Persons Name: ASHA SUH Name: RAMESH SUH Address: home [address] [place] [address] Name: HAJA SUH Address: home [address] [place] [address]
--- OUTSIDE RECORDS SUMMARY | 2024-07-15 19:02 | XMS_ITS | Continuity of Care Document ---
Author Organization [facility] Adult Address [address] [place] [address]- Care Team Providers Care Therapy Aide Name Role Phone Terrence BARR, Larisa Loyd Primary Care Physician Encounter [facility] [place] Date(s): 03/23/23 - 04/22/23 [facility] Adult [address] [place] [address]- Allergies, Adverse Reactions, Alerts Substance Reaction Severity Status codeine Active naproxen Active Immunizations Given and Recorded Vaccine Date Status Refusal Reason SARS-CoV-2 (COVID-19) mRNA-1273 vaccine 11/18/21 R ecorded SARS-CoV-2 (COVID-19) mRNA-1273 vaccine 10/07/21 R ecorded tetanus/diphtheria/pertussis, acel(Tdap) 10/11/14 Recorded Medications Bactrim DS 800 mg-160 mg oral tablet 1 tablet, By Mouth, 2 times a day, for 10 days, # 20 tablet, 0 Refills, Acute 04/24/23 13:21:00 EDT, 04/14/23 13:21:00 EDT, Tablet, Partial fill upon patient request if the prescription is for a schedule II opioid drug. Start Date: 04/14/23 Stop Date: 04/24/23 Status: Ordered cephalexin monohydrate 500 mg oral capsule 1 capsule = 500 mg, By Mouth, 4 times a day, for 10 days, # 40 capsule, 0 Refills, Acute 04/24/23 13:21:00 EDT, 04/14/23 13:21:00 EDT, Capsule, Partial fill upon patient request if the prescription is for a schedule II opioid drug. Start Date: 04/14/23 Stop Date: 04/24/23 Status: Ordered ibuprofen 800 mg oral tablet 800 mg, 1, tablet, By Mouth, 3 times a day, for 30 days, # 90 tablet, Refills 1, Tot. Refills 1, Acute 05/16/23 13:02:00 EDT, 03/17/23 13:02:00 EDT, Route to Pharmacy Electronically, [id number], Partial fill upon patient request if the prescri... Start Date: 03/17/23 Stop Date: 05/16/23 Status: Ordered losartan 25 mg oral tablet 25 mg, 1, tablet, By Mouth, Daily, # 90 tablet, Refills 0, Tot. Refills 0, Maintenance, 03/17/23 13:29:00 EDT, Route to Pharmacy Electronically, [id number], [...] Date: 03/17/23 Stop Date: 04/16/23 Status: Ordered Problem List Condition Confirmation Course [...] Care team information Care Team Personnel Name: Terrence BARR, Larisa Loyd Position: [facility] PCO Associate Professional Member Role: PCP Address: Address: [address] [place] [address] 3rd [place] [address]- Care Team Related Persons Name: ASHA SUH Name: RAMESH SUH Address: home [address] [place] [id number] Name: HAJA SUH Address: home [address] [place] [address]
--- OUTSIDE RECORDS SUMMARY | 2024-07-15 19:02 | XMS_ITS | Continuity of Care Document ---
Author Organization [facility] Adult Address [address] [place] [address]- Care Team Providers Care Loom Control Chain Builder Name Role Phone Dionne BARR, Larisa Primary Care Physician [phone] Encounter [facility] [place] Date(s): 01/18/24 - 03/17/24 [facility] Adult [address] [place] [address]- Attending Physician: Not on Staff, Attending MD [...] opioid drug. Start Date: 02/17/24 Status: Ordered Enoxaparin 0.4 mL = 40 [...] 1 Refills, Maintenance, 01/09/24 15:12:00 EST, Solution, [facility][id number], Partial fill upon patient request if the prescription is for a schedule II opioid drug., 180, cm, 01/07... Start Date: 01/09/24 Stop Date: 03/09/24 Status: Ordered losartan 25 mg oral tablet 1 tablet, By Mouth, Daily, # 90 tablet, 0 Refills, Maintenance, 12/29/23 10:39:00 EST, [facility] #[id number], 180, cm, 08/29/23 12:04:00 EDT, Height, 118, kg, 03/26/23 17:27:00 EDT, Dry Weight Start Date: 12/29/23 Status: Ordered metFORMIN 1000 mg oral tablet 1 tablet, By Mouth, 2 times a day, # 180 tablet, 0 Refills, Maintenance, 12/29/23 10:40:00 EST, [facility] #[id number], 180, cm, 08/29/23 12:04:00 EDT, Height, 118, kg, 03/26/23 17:27:00 EDT, DryWeight Start Date: 12/29/23 Status: Ordered Pen Jay, 31 G x 8 mm BD Ultra [...] Name: Larisa Truong NP Position: [facility] PCO Associate Professional Member Role: PCP Address: Address: [address] [place] [address] [address] [place] [address]- Name: Ronda Madison RN Position: S RN Member Role: Primary Care Nurse Care Team Related Persons Name: ASHA SUH Name: RAMESH SUH Address: home [address] [place] [address] Name: HAJA SUH Address: home [address] [place] [address]
--- OUTSIDE RECORDS SUMMARY | 2024-07-15 19:02 | XMS_ITS | Continuity of Care Document ---
Author Organization [facility] Address [address] [place] [address]- Care Team Providers Care Sulfuric Acid Plant Supervisor Name Role Phone Dionne BARR, Larisa Primary Care Physician [place] [facility] [place]07[place] - 03/08/24 [facility] [address] [place] [address]- Allergies, Adverse Reactions, Alerts Substance Reaction Severity [...] Date: 01/18/24 Stop Date: 10/14/24 Status: Ordered ketoconazole 2% topical cream 1 application, Topically, 2 times a day, for 7 days, to affected area, # 30 Gm, 0 Refills, Acute 03/13/24 14:53:00 EDT, 03/06/24 14:53:00 EDT, [facility][id number], Partial fill upon patient request if the prescription is for a schedule II opioi... Start Date: 03/06/24 Stop Date: 03/13/24 Status: Ordered Lantus Solostar Pen 100 units/mL subcutaneous solution = 10 units, Subcutaneous Injection, Daily at bedtime, # 15 mL, 1 Refills, Maintenance, 01/09/24 15:12:00 EST, Solution, [facility] #[id number], Partial fill upon patient request if the prescription is for a schedule II opioid drug., 180, cm, 01/07... Start Date: 01/09/24 Stop Date: 03/09/24 Status: Ordered losartan 25 mg oral tablet 1 tablet, By Mouth, Daily, # 90 tablet, 0 Refills, Maintenance, 12/29/23 10:39:00 EST, [facility] #[id number], 180, cm, 08/29/23 12:04:00 EDT, Height, 118, kg, 03/26/23 17:27:00 EDT, Dry Weight Start Date: 12/29/23 Status: Ordered metFORMIN 1000 mg oral tablet 1 tablet, By Mouth, 2 times a day, # 180 tablet, 0 Refills, Maintenance, 12/29/23 10:40:00 EST, [facility] #[id number], 180, cm, 08/29/23 12:04:00 EDT, Height, 118, kg, 03/26/23 17:27:00 EDT, DryWeight Start Date: 12/29/23 Status: Ordered Pen [place], 31 G x 8 mm BD Ultra [...] Associate Professional Member Role: PCP Address: Address: [address] [place] [id number] Name: Ronda Madison RN Position: S RN Member Role: Primary Care Nurse Care Team Related Persons Name: JULIÁNLeelaASHA Name: RAMESH USH Address: home [address] [place] [address] Name: HAJA SUH Address: [address] [address]
--- OUTSIDE RECORDS SUMMARY | 2024-07-15 19:02 | XMS_ITS | Continuity of Care Document ---
Author Organization [facility] Address [address] [place] [address]- Care Team Providers Care Research Microbiologist Name Role Phone Dionne BARR, Larisa Primary Care Physician [phone] [place] [facility] [place] 03/21[place]24 - 04/20/24 [facility] [address] [place] [address]- Allergies, Adverse Reactions, Alerts Substance Reaction Severity [...] capsule, 0 Refills, Maintenance, 03/21/24 9:52:00 EDT, [facility] #76125, 180.34, cm, 03/20/2411:09:00 EDT, Height, 92, kg, [...] 1 Refills, Maintenance, 01/09/24 15:12:00 EST, Solution, [facility] #[id number], Partial fill upon patient request if the prescription is for a schedule II opioid drug., 180, cm, 01/07... Start Date: 01/09/24 Stop Date: 03/09/24 Status: Ordered losartan 25 mg oral tablet 1 tablet, By Mouth, Daily, # 90 tablet, 0 Refills, Maintenance, 12/29/23 10:39:00 EST, [facility] #89057, 180, cm, 08/29/23 12:04:00 EDT, Height, 118, kg, 03/26/23 17:27:00 EDT, Dry Weight Start Date: 12/29/23 Status: Ordered metFORMIN 1000 mg oral tablet 1 tablet, By Mouth, 2 times a day, # 180 tablet, 0 Refills, Maintenance, 12/29/23 10:40:00 EST, [facility] #[id number], 180, cm, 08/29/23 12:04:00 EDT, Height, 118, [...] 03/27/24 Stop Date: 09/23/24 Status: Ordered Pen [place], 31 G x 8 mm BD Ultra [...] Care Nurse Name: Larisa Truong NP Position: [facility] PCO Associate Professional Member Role: PCP Address: Address: [address] [place] [address] Name: Ronda Madison RN Position: S RN Member Role: Primary Care Nurse Care Team Related Persons Name: ASHA SUH Name: RAMESH SUH Address: home [address] [place] [address] Name: HAJA SUH Address: home [address] [place] [address]
--- OUTSIDE RECORDS SUMMARY | 2024-07-15 19:02 | XMS_ITS | Continuity of Care Document ---
Author Organization [facility] Address [address] [place] [address]- Care Team Providers Care Patient Care Secretary Name Role Phone Dionne BARR, Larisa Primary Care Physician Encounter [facility] [place] Date(s): 02/03/24 - 02/10/24 [facility] [address] [place] [address]- Attending Physician: Michael BARR, Sandra Contreras Admitting [...] 03/02/24 14:14:00 EDT, 02/03/24 14:14:00 EDT, Capsule, [facility] #[id number], Partial fill upon patient request if the [...] 06/24/23 12:52:00 EDT, Route to Pharmacy Electronically, [facility] #[id number], 180, cm, 06/24/23 11:02:00 EDT, Height, 118, kg, 03/26/23 17:27:00 EDT, Dry W... Start Date: 06/24/23 Status: Ordered Jardiance 10 mg oral tablet 1 tablet, By Mouth, Daily in AM, # 30 tablet, 3 Refills, Maintenance, 10/27/23 11:21:00 EST, [facility] #05189, 180, cm, 08/29/23 12:04:00 EDT, Height, 118, kg, 03/26/23 17:27:00 EDT, Dry Weight Start Date: 10/27/23 Status: Ordered Lantus Solostar Pen 100 units/mL subcutaneous solution = 10 units, Subcutaneous Injection, Daily at bedtime, # 15 mL, 1 Refills, Maintenance, 01/09/24 15:12:00 EST, Solution, [facility] #[id number], Partial fill upon patient request if the prescription is for a schedule II opioid drug., 180, cm, 01/07... Start Date: 01/09/24 Stop Date: 03/09/24 Status: Ordered losartan 25 mg oral tablet 1 tablet, By Mouth, Daily, # 90 tablet, 0 Refills, Maintenance, 12/29/23 10:39:00 EST, [facility] #[id number], 180, cm, 08/29/23 12:04:00 EDT, Height, 118, kg, 03/26/23 17:27:00 EDT, Dry Weight Start Date: 12/29/23 Status: Ordered metFORMIN 1000 mg oral tablet 1 tablet, By Mouth, 2 times a day, # 180 tablet, 0 Refills, Maintenance, 12/29/23 10:40:00 EST, [facility][id number], 180, cm, 08/29/23 12:04:00 EDT, Height, 118, kg, 03/26/23 17:27:00 EDT, DryWeight Start Date: 12/29/23 Status: Ordered Pen Keller, 30 G x 8 mm BD Ultra Fine II See Instructions, # 300 each, Refills 2, Tot. Refills 2, Maintenance, use as directed for Type 2 Diabetes Mellitus, 01/09/24 15:13:00 EST, Supply, 180, cm, 01/07/24 11:05:00 EST, Height, 120, kg, 01/02/24 0:32:00 EST, Dry Weight Start Date: 01/09/24 Stop Date: 10/05/24 Status: Ordered Pen Keller, 31 G x 8 mm BD Ultra [...] 12/29/23 10:39:00 EST, Route to Pharmacy Electronically, [facility] #[id number], 180, cm, 08/29/23 12:04:00 EDT, Height, 118, kg, 03/26/23 17:27:00 EDT, Dry Weight Start Date: 12/29/23 Status: Ordered Trulicity Pen 0.75 mg/0.5 mL subcutaneous solution 0.5 mL = 0.75 mg, Subcutaneous Injection, Every week, rotate injection sites, # 2 mL, 1 Refills, Maintenance, 08/29/23 11:49:00 EDT, Solution, [facility] #[id number], Partial fill upon patient request if the [...] oldest [Reference Range]: 1 Height 180 cm (02/03/24 1:55 PM) Weight 116 kg (02/03/24 1:55 PM) Oxygen Saturation [94-100 %] 94 % (02/03/24 1:55 PM) Pulse Rate [55-90 bpm] 99 bpm *H* (02/03/24 1:55 PM) Body Mass Index [18.5-24.99 kg/m2] 35.8 kg/m2 *>HHI* (02/03/24 1:55 PM) Blood Pressure [90-138/55-84 mm Hg] 126/ 70mm Hg (02/03/24 1:55 PM) Mode of Delivery (Oxygen) Room air (02/03/24 1:55 PM) Blood pressure sites Arm, right (02/03/24 1:55 PM) Weight Obtained Via Patient/family state d (02/03/24 1:55 PM) Social History Social History Type Response Smoking Status Former smoker, quit more than 30 days ago; Other: quit more than 10 years, smoked for three years; entered on: 12/20/22 Sex Note * Seth Burden: PERFORM, SIGN, VERIFY Event Display: Patient Education/Instruction Authored Date: [id number] [facility] [address] Clinical Summary Name EDWINA SUH Age 54 Years 1970 PCP Dionne DETAILER, Larisa PCP Visit Date 02/03/2024 13:01:00 Additional Instructions: Scheduled Appointments?? Future Appointments ?*[facility],??[place],??[address] ?Phone:??--?Fax:??-- ?Appt. Date:??02/15/2024?8:00 AM ?Scheduled Provider:??Michael BARR , Sandra Contreras ?*[facility] [address] ?Phone:??--?Fax:??-- ?Appt. Date:??02/16/2024?11:00 AM ?Scheduled Provider:??Larisa Truong NP Follow-Up Instructions ?? With: Address: When: Michael BARR, Sandra Contreras Comments: 2 weeks with wound check Diagnosis Medications: Please continue your medications until treatment is completed or stopped by your provider. Discuss any questions related to medications with your provider. New Medications [facility] #[id number], [address] [place], [place] [id number], [phone] Doxycycline (doxycycline hyclate 100 mg oral capsule) 1 capsule Oral twice a day for 14 Days. Refills: 1. Next Dose: Medications to Continue with No Changes These medications were not printed or sent to your pharmacy dulaglutide (Trulicity Pen 0.75 mg/0.5 mL subcutaneous solution) 0.5 Milliliter Subcutaneous Injection every week for 4 week(s). rotate injection sites. Refills: 1. Next Dose: Durable Medical Equipment (Freestyle Lite Test Strips) Use for checking blood sugar four times daily for type 2 diabetes. Refills: 2. Next Dose: Durable Medical Equipment (Pen Keller, 30 G x 8 mm BD Ultra Fine II) use as directed for Type 2 Diabetes Mellitus. Refills: 2. Next Dose: Durable Medical Equipment (Pen Keller, 31 G x 8 mm BD Ultra Fine III) use as directed for Type 2 Diabetes Mellitus. Refills: 5. Next Dose: empagliflozin (Jardiance 10 mg oral [...] twice a day. Refills: 0. Next Dose: Simvastatin (simvastatin 40 mg oral tablet) 1 tab(s) Oral Daily at Bedtime. Refills: 0. Next Dose: Allergy Info:?? naproxen; codeine Medications Given This Visit Future Orders ?Foot Min 3 Views Left? Order Date:02/03/24?- Complete on or after?02/03/24 Future Orders ?Foot Min 3 Views Left? Order Date:02/03/24?- Complete on or after?02/03/24 Vital Signs Height 180 cm Weight 116 kg BMI 35.8 kg/m2 Blood Pressure 126 mm Hg/70 mm Hg Temperature Pulse Rate 99 bpm Respiratory Rate 02 Sat Mode of Delivery 94 %/Room air You can now view a summary of your hospital visit from the comfort of your home through a free online portal called [employer]. [employer] is a website that allows you to securely view your medical information including discharge summary, medications and follow-up visits. ??You can alsosend a secure electronic message to your doctor???s office to request appointments, renew medications or just ask a question. You can enroll at [email or web address] or register during your next office [...] primary care provider, you may find a [facility] provider by calling [facility] [employer]. Link at [phone]. [facility], in keeping with [facility] guidance, no longer requires face masks for [...] Care Nurse Name: Larisa Truong NP Position: [facility] PCO Associate Professional Member Role: PCP Address: Address: [address] [place] [address] [address] [place] [address]- Care Team Related Persons Name: ASHA SUH Name: RAMESH SUH Address: home [address] [place] [address] Name: HAJA SUH Address: home [address] [place] [address]
--- OUTSIDE RECORDS SUMMARY | 2024-07-15 19:02 | XMS_ITS | Continuity of Care Document ---
Author Organization [facility] Adult Address [address] [place] [address]- Care Team Providers Care Watch And Clock Maker And Repairer Name Role Phone Dionne BARR, Larisa Primary Care Physician [place] [facility] [place]22[place]24 - 05/22/24 [facility] [address] [place] [address]- Allergies, Adverse Reactions, Alerts Substance Reaction Severity [...] 05/04/24 16:16:00 EDT, Route to Pharmacy Electronically, [facility] #[id number], 180.34, cm, 05/04/24 15:47:00 EDT, Height, 92, [...] 1 Refills, Maintenance, 01/09/24 15:12:00 EST, Solution, [facility][id number], Partial fill upon patient request if the prescription is for a schedule II opioid drug., 180, cm, 01/07... Start Date: 01/09/24 Stop Date: 03/09/24 Status: Ordered losartan 25 mg oral tablet 1 tablet, By Mouth, Daily, # 90 tablet, 3 Refills, Maintenance, 05/04/24 16:17:00 EDT, [facility] #[id number], 180.34, cm, 05/04/24 15:47:00 EDT, Height, 92, kg, 03/20/24 10:59:00 EDT, Dry Weight Start Date: 05/04/24 Status: Ordered metFORMIN 1000 mg oral tablet 1 tablet, By Mouth, 2 times a day, # 180 tablet, 3 Refills, Maintenance, 05/04/24 16:17:00 EDT, [facility] #[id number], 180.34, cm, 05/04/24 15:47:00 EDT, Height, 92, [...] 03/27/24 Stop Date: 09/23/24 Status: Ordered Pen [place], 31 G x 8 mm BD Ultra [...] 05/04/24 16:18:00 EDT, Route to Pharmacy Electronically, [facility] #[id number], Partial fill upon patient request if the [...] Care Nurse Name: Larisa Truong NP Position: [facility] PCO Associate Professional Member Role: PCP Address: Address: [address] [place] [address] [address] [place], [place] [address] Name: Ronda Madison RN Position: S RN Member Role: Primary Care Nurse Care Team Related Persons Name: ASHA SUH Name: RAMESH SUH Address: home [address] [place] [address] Name: HAJA SUH Address: home [address] [place] [address]
--- OUTSIDE RECORDS SUMMARY | 2024-07-15 19:02 | XMS_ITS | Continuity of Care Document ---
Author Organization [facility] Address [address] [place] [address]- Care Team Providers Care Spar Machine Operator Helper Name Role Phone Dionne BARR, Larisa Primary Care Physician [phone] Encounter [facility] Date(s): 01/01/24 - 03/01/24 [facility] [address] [place] [id number] Attending Physician: Efren Key DO Referring Physician: Cm Duarte MD Allergies, Adverse Reactions, Alerts Substance Reaction [...] 03/02/24 14:14:00 EDT, 02/03/24 14:14:00 EDT, Capsule, [facility] #[id number], Partial fill upon patient request if the [...] 1 Refills, Maintenance, 01/09/24 15:12:00 EST, Solution, [facility] #[id number], Partial fill upon patient request if the prescription is for a schedule II opioid drug., 180, cm, 01/07... Start Date: 01/09/24 Stop Date: 03/09/24 Status: Ordered losartan 25 mg oral tablet 1 tablet, By Mouth, Daily, # 90 tablet, 0 Refills, Maintenance, 12/29/23 10:39:00 EST, [facility][id number], 180, cm, 08/29/23 12:04:00 EDT, Height, 118, [...] tablet, 0 Refills, Maintenance, 12/29/23 10:40:00 EST, [facility] #[id number], 180, cm, 08/29/23 12:04:00 EDT, Height, 118, [...] drug. Start Date: 02/17/24 Status: Ordered Pen [place], 30 G x 8 mm BD Ultra Fine II See Instructions, # 300 each, Refills 2, Tot. Refills 2, Maintenance, use as directed for Type 2 Diabetes Mellitus, 01/09/24 15:13:00 EST, Supply, 180, cm, 01/07/24 11:05:00 EST, Height, 120, kg, 01/02/24 0:32:00 EST, Dry Weight Start Date: 01/09/24 Stop Date: 10/05/24 Status: Ordered Pen [place], 31 G x 8 mm BD Ultra [...] Associate Professional Member Role: PCP Address: Address: [address] [place] [id number] Name: Ronda Madison RN Position: S RN Member Role: Primary Care Nurse Care Team Related Persons Name: ASHA SUH Name: RAMESH SUH Address: home [address] [place] [address] Name: HAJA SUH Address: home [address] [place] [address]
--- OUTSIDE RECORDS SUMMARY | 2024-07-15 19:02 | XMS_ITS | Continuity of Care Document ---
Author Organization [facility] Adult Address [address] [place] [address]- Care Team Providers Care Attache Name Role Phone Terrence BARR, Larisa Loyd Primary Care Physician Encounter [facility] Date(s): 03/17/23 - 03/24/[address] [address]- Encounter Diagnosis Type 2 diabetes mellitus(Discharge Diagnosis) - 03/17/23 Hypertension(Discharge Diagnosis) - 03/17/23 Hyperlipidemia(Discharge Diagnosis) - 03/17/23 Right shoulder pain(Discharge Diagnosis) - 03/17/23 Attending Physician: Not on Staff, Attending MD [...] days, # 20 tablet, 0 Refills, Acute 04/03/23 17:56:00 EDT, 03/24/23 17:56:00 EDT, Tablet, [facility] #[id number], Partial fill upon patient request if the prescription is for a schedule II opioid drug., 1 tablet B... Start Date: 03/24/23 Stop Date: 04/03/23 Status: Ordered cephalexin monohydrate 500 mg oral tablet 1 tablet = 500 mg, By Mouth, 4 times a day, for 10 days, # 40 tablet, 0 Refills, Acute 04/03/23 17:56:00 EDT, 03/24/23 17:56:00 EDT, Tablet, [id number], Partial fill upon patient request if the prescription is for a schedule II opioid drug., 1... Start Date: 03/24/23 Stop Date: 04/03/23 Status: Ordered ibuprofen 800 mg oral tablet [...] Date: 03/17/23 Stop Date: 04/16/23 Status: Ordered Tylenol Extra Strength 500 mg oral tablet 2 tablet = 1,000 mg, By Mouth, 3 times a day, PRN as needed for pain, for 10 days, # 50 tablet, 0 Refills, Acute 03/27/23 13:16:00 EDT, 03/17/23 13:16:00 EDT, Tablet, [facility], Partial fillupon patient request if the prescription is for a s... Start Date: 03/17/23 Stop Date: 03/27/23 Status: Ordered Problem List Condition Confirmation Course [...] Effective Dates Health Status Clinical Service Informant Type 2 diabetes mellitus Discharge Diagnosis 03/17/23 Hypertension Discharge Diagnosis 03/17/23 Hyperlipidemia Discharge Diagnosis 03/17/23 Right shoulder pain Discharge Diagnosis 03/17/23 Vital Signs Most recent to oldest [Reference Range]: 1 2 3 Height 180 cm (03/17/23 1:32 PM) 180 cm (03/17/23 12:52 PM) 180 cm (03/17/23 12:46 PM) Weight 122.2 kg (03/17/23 12:46 PM) Oxygen Saturation [94-100 %] 98 % (03/17/23 12:46 PM) Pulse Rate [55-90 bpm] 105 bpm *H* (03/17/23 12:46 PM) Body Mass Index [18.5-24.99 kg/m2] 37.72 kg/m2 *>HHI* (03/17/23 12:46 PM) Blood Pressure [90-138/55-84 mm Hg] 132/78mm Hg (03/17/23 1:32 PM) 147/81mm Hg *H* (03/17/23 12:52 PM) 146/80mm Hg *H* (03/17/23 12:46 PM) Mode of Delivery (Oxygen) Room air (03/17/23 12:46 PM) Blood pressure sites Arm, left (03/17/23 1:32 PM) Arm, left (03/17/23 12:52 PM) Arm, left (03/17/23 12:46 PM) Weight Obtained Via Standing scale (03/17/23 12:46 PM) Social History Social History Type Response Smoking Status Former smoker, quit more than 30 days ago; Other: quit more than 10 years, smoked for three years; entered on: 12/20/22 Sex Note * Gay Santos: PERFORM, SIGN, VERIFY Event Display: Patient Education/Instruction Authored Date: [id number] [facility] *[facility] Clinical Summary Name EDWINA SUH Age 53 Years 1970 PCP Terrence BARR, Larisa Loyd PCP Visit Date 03/17/2023 12:44:00 Additional Instructions: Scheduled Appointments?? Future Appointments ?No Future Appointments Scheduled Follow-Up Instructions ?? Diagnosis Hyperlipidemia, unspecified; Pain in right shoulder; Essential (primary) hypertension; Type 2 diabetes mellitus without complications Medications: Please continue your medications until treatment is completed or stopped by your provider. Discuss any questions related to medications with your provider. New Medications [facility]/pharmacy #[id number], [address], [place] [id number], [phone] Acetaminophen (Tylenol Extra Strength 500 mg oral tablet) 2 tab(s) Oral 3 times a day as needed as needed for pain for 10 Days. Refills: 0. Next Dose: dulaglutide (Trulicity Pen 0.75 mg/0.5 mL subcutaneous solution) 0.5 Milliliter Subcutaneous Injection every week for 30 Days. rotate injection sites. Refills: 0. Next Dose: Ibuprofen (ibuprofen 800 mg oral tablet) 1 tab(s) Oral 3 times a day for 30 Days. Refills: 1. Next Dose: Losartan (losartan 25 mg oral tablet) 1 tab(s) Oral Daily for 90 Days. Refills: 0. Next Dose: Medications to Continue Taking That Have Changed [facility]/pharmacy #[id number], [address], [place] [phone], [phone] - Simvastatin (simvastatin 40 mg oral tablet) 1 tab(s) Oral Daily at Bedtime for 90 Days. Refills: 2. Next Dose: Medications to Continue with No Changes These medications were not printed or sent to your pharmacy Metformin (metFORMIN 1000 mg oral tablet) 1 tab(s) Oral twice a day for 90 Days. Refills: 2. Next Dose: No Longer Take the Following Medications linagliptin (Tradjenta 5 mg oral tablet) 1 tab(s) Oral Daily for 90 Days. Refills: 2. Allergy Info:?? naproxen; codeine Medications Given This Visit Future Orders ?No future orders Vital Signs Height 180 cm Weight 122.2 kg BMI 37.72 kg/m2 Blood Pressure 132 mm Hg/78 mm Hg Temperature Pulse Rate 105 bpm Respiratory Rate 02 Sat Mode of Delivery 98 %/Room air You can now view a summary of your hospital visit from the comfort of your home through a free online portal called [employer]. [employer] is a website that allows you to securely view your medical information including discharge summary, medications and follow-up visits. ??You can alsosend a secure electronic message to your doctor???s office to request appointments, renew medications or just ask a question. You can enroll at [email or web address] or register during your next office visit. [...] primary care provider, you may find a [facility] provider by calling [facility] at [phone]. For information about the plan of care [...] Team Personnel Name: Larisa Ocampo NP Position: [facility] PCO Associate Professional Member Role: PCP Address: Address: [address] [facility] 3rd [place] [address]- Care Team Related Persons Name: ASHA SUH Name: RAMESH SUH Address: home [address] [place] [address] Name: HAJA SUH Address: home [address] [place] [address]
--- OUTSIDE RECORDS SUMMARY | 2024-07-15 19:02 | XMS_ITS | Continuity of Care Document ---
Author Organization [facility] Address [address] [place] [address]- Care Team Providers Care Cork Pressing Machine Operator Name Role Phone Larisa Truong NP Primary Care Physician [phone] [place] [facility] Date(s): 03/20/24 - 03/27/24 [facility] [address] [place] [address]- Encounter Diagnosis Status post amputation of right great toe(Discharge Diagnosis) - 03/20/24 Amputation of toe of left foot(Discharge Diagnosis) - 03/20/24 Type 2 diabetes mellitus(Discharge Diagnosis) - 03/20/24 Attending Physician: Jm Black MD Admitting Physician: Jm Black MD Referring Physician: Larisa Truong NP Allergies, Adverse [...] capsule, 0 Refills, Maintenance, 03/21/24 9:52:00 EDT, [facility] #[id number], 180.34, cm, 03/20/2411:09:00 EDT, Height, 92, kg, [...] 1 Refills, Maintenance, 01/09/24 15:12:00 EST, Solution, [facility] #[id number], Partial fill upon patient request if the prescription is for a schedule II opioid drug., 180, cm, 01/07... Start Date: 01/09/24 Stop Date: 03/09/24 Status: Ordered losartan 25 mg oral tablet 1 tablet, By Mouth, Daily, # 90 tablet, 0 Refills, Maintenance, 12/29/23 10:39:00 EST, [facility] #[id number], 180, cm, 08/29/23 12:04:00 EDT, Height, 118, kg, 03/26/23 17:27:00 EDT, Dry Weight Start Date: 12/29/23 Status: Ordered metFORMIN 1000 mg oral tablet 1 tablet, By Mouth, 2 times a day, # 180 tablet, 0 Refills, Maintenance, 12/29/23 10:40:00 EST, [facility] #[id number], 180, cm, 08/29/23 12:04:00 EDT, Height, 118, [...] 03/27/24 Stop Date: 09/23/24 Status: Ordered Pen [place], 31 G x 8 mm BD Ultra [...] amputation of right great toe Discharge Diagnosis 03/20/24 Amputation of toe of left foot Discharge Diagnosis 03/20/24 Type 2 diabetes mellitus Discharge Diagnosis 03/20/24 Vital Signs Most recent to oldest [Reference Range]: 1 2 Height 180.34 cm (03/20/24 11:09 AM) 180.34 cm (03/20/24 10:59 AM) Weight 114 kg (03/20/24 11:09 AM) 92 kg (03/20/24 10:59 AM) Oxygen Saturation [94-100 %] 97 % (03/20/24 11:09 AM) 97 % (03/20/24 10:59 AM) Pulse Rate [55-90 bpm] 84 bpm (03/20/24 11:09 AM) 76 bpm (03/20/24 10:59 AM) Body Mass Index [18.5-24.99 kg/m2] 35.05 kg/m2 *>HHI* (03/20/24 11:09 AM) 28.29 kg/m2 *H* (03/20/24 10:59 AM) Blood Pressure [90-138/55-84 mm Hg] 110/ 72mm Hg (03/20/24 11:09 AM) 148/98mm Hg *H* (03/20/24 10:59 AM) Mode of Delivery (Oxygen) Room air (03/20/24 11:09 AM) Room air (03/20/24 10:59 AM) Blood pressure sites Arm, right (03/20/24 10:59 AM) Dry Weight 92 kg (03/20/24 10:59 AM) Social History Social History Type Response Smoking Status Former smoker, quit more than 30 days ago; Other: quit more than 10 years, smoked for three years; entered on: 12/20/22 Sex Note * Seth Burden: PERFORM, SIGN, VERIFY Event Display: Patient Education/Instruction Authored Date: [id number] [facility] *[facility] [address] Clinical Summary Name EDWINA SUH Age 54 Years 1970 PCP Dionne TRANSIT PLANNING MANAGER, Larisa PCP Visit Date 03/20/2024 10:54:00 Additional Instructions: Scheduled Appointments?? Future Appointments ?No Future Appointments Scheduled Follow-Up Instructions ?? With: Address: When: Michael BARR, Sandra Contreras In 3 weeks Comments: follow up wound check with Flaquita Giovanni Medications: Please continue your medications until treatment is completed or stopped by your provider. Discuss any questions related to medications with your provider. Medications to Continue with No Changes These medications were not printed or sent to your pharmacy Acetaminophen (acetaminophen 325 mg oral tablet) 650 Milligram Oral every 6 hours as needed Pain , Mild. Next Dose: Durable Medical Equipment (Freestyle Lite Test Strips) Use for checking blood sugar four times daily for type 2 diabetes. Refills: 2. Next Dose: Durable Medical Equipment (Pen [place], 31 G x 8 mm BD Ultra Fine III) use as directed for Type 2 Diabetes Mellitus. Refills: 5. Next Dose: Enoxaparin 40 Milligram Subcutaneous Injection Daily. Until 03/14/2024. Next Dose: Insulin Glargine (Lantus Solostar Pen 100 units/mL subcutaneous solution) 10 unit(s) Subcutaneous Injection Daily at Bedtime for 30 Days. Refills: 1. Next Dose: Losartan (losartan 25 mg oral tablet) 1 tab(s) Oral Daily. Refills: 0. Next Dose: Metformin (metFORMIN 1000 mg oral tablet) 1 tab(s) Oral twice a day. Refills: 0. Next Dose: Simvastatin (simvastatin 20 mg oral tablet) 2 tab(s) Oral Daily. Next Dose: Allergy Info:?? naproxen; codeine Medications Given This Visit Future Orders ?No future orders Future Orders ?No future orders Vital Signs Height 180.34 cm Weight 114 kg BMI 35.05 kg/m2 Blood Pressure 110 mm Hg/72 mm Hg Temperature Pulse Rate 84 bpm Respiratory Rate 02 Sat Mode of Delivery 97 %/Room air You can now view a summary of your hospital visit from the comfort of your home through a free online portal called [employer]. [employer] is a website that allows you to securely view your medical information including discharge summary, medications and follow-up visits. ??You can alsosend a secure electronic message to your doctor???s office to request appointments, renew medications or just ask a question. You can enroll at [email or web address] or register during your next office [...] primary care provider, you may find a [facility] provider by calling [facility] [employer] at [phone]. [facility], in keeping with [facility] guidance, no longer requires face masks [...] Care Nurse Name: Larisa Truong NP Position: [facility] PCO Associate Professional Member Role: PCP Address: Address: [address] [place] [address] [address] [place], [place] [address] Name: Ronda Madison RN Position: S RN Member Role: Primary Care Nurse Care Team Related Persons Name: ASHA SUH Name: RAMESH SUH Address: home [address] [place] [address] Name: HAJA SUH Address: home [address] [place] [address]
--- OUTSIDE RECORDS SUMMARY | 2024-07-15 19:02 | XMS_ITS | Continuity of Care Document ---
Author Organization [facility] Adult Address [address] [place] [address]- Care Team Providers Care Flag Maker Name Role Phone Terrence BARR, Larisa Loyd Primary Care Physician Encounter [facility] Date(s): 09/01/23 - 10/01/[address] [facility] [address] [place] [address]- Allergies, Adverse Reactions, Alerts Substance Reaction Severity [...] 06/24/23 12:52:00 EDT, Route to Pharmacy Electronically, [facility] #[id number], 180, cm, 06/24/23 11:02:00 EDT, Height, 118, kg, 03/26/23 17:27:00 EDT, Dry W... Start Date: 06/24/23 Status: Ordered Jardiance 10 mg oral tablet 1 tablet = 10 mg, By Mouth, Daily in AM, # 30 tablet, 1 Refills, Maintenance, 08/29/23 11:50:00 EDT, Tablet, [facility] #[id number], Partial fill upon patient request if the prescription is for aschedule II opioid drug., 180, cm, 08/29/23 11:27:0... Start Date: 08/29/23 Stop Date: 10/28/23 Status: Ordered losartan 25 mg oral tablet 1 tablet, By Mouth, Daily, # 90 tablet, 2 Refills, Maintenance, 06/24/23 12:52:00 EDT, [facility] #[id number], 180, cm, 06/24/23 11:02:00 EDT, Height, 118, kg, 03/26/23 17:27:00 EDT, Dry Weight Start Date: 06/24/23 Status: Ordered metFORMIN 1000 mg oral tablet 1 tablet = 1,000 mg, By Mouth, 2 times a day, # 180 tablet, 2 Refills, Maintenance, 06/24/23 12:52:00 EDT, Tablet, [facility] #[id number], Partial fill upon patient request if the prescription isfor a schedule II opioid drug., 180, cm, 06/24/23 1... Start Date: 06/24/23 Stop Date: 03/20/24 Status: Ordered Ozempic 2 mg/1.5 mL (1 mg dose) subcutaneous solution = 1 mg, Subcutaneous Infusion, Every 7 days, # 3 mL, 0 Refills, Maintenance, 08/01/23 9:08:00 EDT, [facility][id number], Partial fill upon patient request if the prescription is for a schedule II opioid drug., 1 mg Subcutaneous Infusion Every 7... Start Date: 08/01/23 Stop Date: 08/29/23 Status: Ordered simvastatin 40 mg oral tablet 40 mg, 1, tablet, By Mouth, Daily at bedtime, # 90 tablet, Refills 2, Tot. Refills 2, Maintenance, 06/24/23 12:52:00 EDT, Route to Pharmacy Electronically, [facility] #[id number], Partial fill upon patient request if the prescription is for a sche... Start Date: 06/24/23 Stop Date: 03/20/24 Status: Ordered Trulicity Pen 0.75 mg/0.5 mL subcutaneous solution 0.5 mL = 0.75 mg, Subcutaneous Injection, Every week, rotate injection sites, # 2 mL, 1 Refills, Maintenance, 08/29/23 11:49:00 EDT, Solution, [facility] #[id number], Partial fill upon patient request if the [...] Team Personnel Name: Larisa Ocampo NP Position: [facility] PCO Associate Professional Member Role: PCP Address: Address: [address] [place] [address] [address] [place], [place] [address] Care Team Related Persons Name: ASHA SUH Name: RAMESH SUH Address: home [address] [place] [address] Name: HAJA SUH Address: home [address] [place] [address]
--- OUTSIDE RECORDS SUMMARY | 2024-07-15 19:02 | XMS_ITS | Continuity of Care Document ---
Author Organization [facility] Adult Address [address] [place] [address]- Care Team Providers Care Senior Java Data Architect Name Role Phone Dionne BRAR, Larisa Primary Care Physician [place] [facility] [place]04[place]24 - 05/11/24 [facility] [address] [place] [address]- Encounter Diagnosis Type 2 diabetes mellitus(Discharge Diagnosis) - 05/04/24 Hypertension associated with type 2 diabetes mellitus(Discharge Diagnosis) - 05/04/24 Hyperlipidemia associated with type 2 diabetes mellitus(Discharge Diagnosis) - 05/04/24 Amputation of toe of left foot(Discharge Diagnosis) - 05/04/24 Status post amputation of right great toe(Discharge Diagnosis) - 05/04/24 Attending Physician: Not on Staff, Attending MD [...] 05/04/24 16:16:00 EDT, Route to Pharmacy Electronically, [facility] #[id number], 180.34, cm, 05/04/24 15:47:00 EDT, Height, 92, [...] 1 Refills, Maintenance, 01/09/24 15:12:00 EST, Solution, [facility] #[id number], Partial fill upon patient request if the prescription is for a schedule II opioid drug., 180, cm, 01/07... Start Date: 01/09/24 Stop Date: 03/09/24 Status: Ordered losartan 25 mg oral tablet 1 tablet, By Mouth, Daily, # 90 tablet, 3 Refills, Maintenance, 05/04/24 16:17:00 EDT, [facility] #[id number], 180.34, cm, 05/04/24 15:47:00 EDT, Height, 92, kg, 03/20/24 10:59:00 EDT, Dry Weight Start Date: 05/04/24 Status: Ordered metFORMIN 1000 mg oral tablet 1 tablet, By Mouth, 2 times a day, # 180 tablet, 3 Refills, Maintenance, 05/04/24 16:17:00 EDT, [facility] #[id number], 180.34, cm, 05/04/24 15:47:00 EDT, Height, 92, [...] 03/27/24 Stop Date: 09/23/24 Status: Ordered Pen [place], 31 G x 8 mm BD Ultra [...] 05/04/24 16:18:00 EDT, Route to Pharmacy Electronically, [facility] #[id number], Partial fill upon patient request if the [...] Informant Type 2 diabetes mellitus Discharge Diagnosis 05/04/24 Hypertension associated with type 2 diabetes mellitus Discharge Diagnosis 05/04/24 Hyperlipidemia associated with type 2 diabetes mellitus Discharge Diagnosis 05/04/24 Amputation of toe of left foot Discharge Diagnosis 05/04/24 Status post amputation of right great toe Discharge Diagnosis 05/04/24 Vital Signs Most recent to oldest [Reference Range]: 1 Height 180.34 cm (05/04/24 3:47 PM) Weight 113.8 kg (05/04/24 3:47 PM) Oxygen Saturation [94-100 %] 97 % (05/04/24 3:47 PM) Pulse Rate [55-90 bpm] 94 bpm *H* (05/04/24 3:47 PM) Body Mass Index [18.5-24.99 kg/m2] 34.99 kg/m2 *>HHI* (05/04/24 3:47 PM) Blood Pressure [90-138/55-84 mm Hg] 137/ 73mm Hg (05/04/24 3:47 PM) Mode of Delivery (Oxygen) Room air (05/04/24 3:47 PM) Blood pressure sites Arm, left (05/04/24 3:47 PM) Weight Obtained Via Standing scale (05/04/24 3:47 PM) Social History Social History Type Response Smoking Status Former smoker, quit more than 30 days ago; Other: quit more than 10 years, smoked for three years; entered on: 12/20/22 Sex Note * Virginia Herman: PERFORM Event Display: Patient Education/Instruction Authored Date: [id number] Ambulatory Adult Visit Summary [facility] [address] [place] [address] Name: EDWINA SUH : 1970?? Visit: 05/04/2024 15:35?? Ambulatory Visit Instructions ?? Your Care Team Primary Care Provider Larisa Truong NP? This Visit Provider Larisa Truong NP Your Diagnosis Type 2 diabetes mellitus Hypertension associated with type 2 diabetes mellitus Hyperlipidemia associated with type 2 diabetes mellitus Vitals Signs Pulse Rate:??94 bpm??High Height: 180.34 cm Systolic Blood Pressure: 137 mm Hg Weight: 113.8 kg Diastolic Blood Pressure: 73 mm Hg Body Mass Index:??34.99 kg/m2??Critical Oxygen Saturation: 97 % Body surface area: 2.39 What to do next Scheduled Follow-Up Appointments Tuesday 9:30 AM EDT ?? With: Andra Veronica NP Where: [facility] [address] [facility] [address] [place] [address]- Status: Pending Follow-Up Appointments Follow Up with??Kendall RODRIGUEZ, Damari Mclean When:??08/08/2024 04:10 PM EDT Why: 3 MONTH DM FOLLOW UP Where: [address] [place] [address]. [address] [place] [address]- Future Orders Cholesterol Total - Routine, Once, 05/04/24 16:20:00 EDT, Order for Today, [facility], Blood?? HDL Cholesterol - Routine, Once, 05/04/24 16:20:00 EDT, Order for Today, [facility], Blood?? Direct LDL - Routine, Once, 05/04/24 16:20:00 EDT, Order for Today, [facility], Blood?? Medications The list below reflects the information in our records and provided by you today along with any changes made during this visit. Please continue your medications until treatment is completed or stopped by your provider. If this is different from the information you have or there are other questions,please contact the prescribing provider. What How Much When Why Instructions Changed Metformin (metFORMIN 1000 mg oral tablet) 1 tab(s) Oral Twice a day Duration: 90 Days Pickup at [facility] #[id number] Changed Simvastatin (simvastatin 40 mg oral tablet) 1 tab(s) Oral Daily at Bedtime Duration: 90 Days Pickup at [facility] #[id number] Unchanged Durable Medical Equipment (Freestyle Lite Test Strips) See instructions Duration: 90 Days Use for checking blood sugar four times daily for type 2 diabetes ?? Unchanged Durable Medical Equipment (Lancets) See instructions Type 2 diabetes mellitus Use for checking blood sugar twice daily for type 2 diabetes ?? Unchanged Durable Medical Equipment (One Touch Ultra 2 Glucose Meter) See instructions Type 2 diabetes mellitus Duration: 30 Days Use for checking blood sugar twice daily for type 2 diabetes ?? Unchanged Durable Medical Equipment (One Touch Ultra Test Strips) See instructions Type 2 diabetes mellitus Duration: 30 Days Use for checking blood sugar twice daily for Type 2 Diabetes Mellitus ?? Unchanged Durable Medical Equipment (Pen [place], 31 G x 8 mm BD Ultra Fine III) See instructions Duration: 30 Days use as directed for Type 2 Diabetes Mellitus ?? Unchanged Ibuprofen (ibuprofen 800 mg oral tablet) 1 tab(s) Oral 3 times a day Pickup at [facility] #[id number] Unchanged Insulin Glargine (Lantus Solostar Pen 100 units/ mL subcutaneous solution) 10 unit(s) Subcutaneous Injection Daily at Bedtime Duration: 30 Days Unchanged Losartan (losartan 25 mg oral tablet) 1 tab(s) Oral Daily Pickup at [facility] #[id number] Pharmacy Information [facility] #[id number]: [address] [place], [place] [id number] [phone] ?? What How Much When Comments Stop Taking Acetaminophen (acetaminophen 325 mg oral tablet) 650 Milligram Oral Every 6 hours as needed for Pain , Mild Stop Taking Doxycycline (doxycycline monohydrate 100 mg oral capsule) 1 capsule Oral Twice a day Duration: 6 week(s) MAY. TAKE WITH FOOD TO MINIMIZE ABDOMINAL DISCOMFORT ?? Stop Taking Enoxaparin 40 Milligram Subcutaneous Injection Daily Until 2023 ?? Test Performed Below is a partial list of the tests performed during your Visit. You may have had other tests and procedures not included in this list. Please discuss all test results with your provider. Cholesterol Total?-- Results Pending -- Direct LDL?-- Results Pending -- HDL Cholesterol?-- Results Pending -- POC HBA1C ([facility]) You will be contacted within 72 hours with your results. Lab Test Results Below is a partial list of the most recent Laboratory test results done during your Visit. You may have had other tests and procedures not included in this list. Please discuss all test results with your provider. Test Name Test Result Date/Time POC HBA1C ([facility]) 6.0 % 05/04/2024 15:46 EDT Medications and Immunizations Administered Medications Given During Visit No medications given during this visit.?? Allergies (NKA means No Known Allergies) codeine naproxen Common Emergency Awareness Tips IS IT A STROKE? Act FAST and Check for these signs: FACE Does the face look uneven? ARM Does one arm drift down? SPEECH Does their speech sound strange? TIME Call at any sign of stroke ?? Heart Attack Signs Chest discomfort: Most heart attacks involve discomfort in the center of the chest and lasts more than a few minutes, or goes away and comes back. It can feel like uncomfortable pressure, squeezing, fullness or pain. Discomfort in upper body: Symptoms can include pain or discomfort in one or both arms, back, neck, jaw or stomach. Shortness of breath: With or without discomfort. Other signs: Breaking out in a cold sweat, nausea, or lightheaded. Remember, MINUTES DO MATTER. If you experience any of these heart attack warning signs, call to get immediate medical attention! ?? Smoking can increase your chances of developing chronic health problems and can cause harmful effects to other family members in your house. If you smoke, you are strongly encouraged to quit. Please call [facility] Link at [phone] or [phone] ([phone]) or log in to [email or web address] for referrals to smoking cessation programs. ?? The National Suicide Prevention Hotline is available 13/06 if you or someone you know needs to find a reason to keep living. By calling 7-571-641-XO1 (8304) you'll be connected to a skilled, trained counselor at a crisis center in your area. [facility] [employer] Portal You can view and manage your care through the patient portal or by using a health care yury of your choosing. [employer] is a website that allows you to securely view your medical information including your hospital discharge summary, office visit summaries, medications and follow-up visits. You can also request appointments, renew medications, and request access to your medical information using a health care yury of your choosing, or just ask a question. You can enroll at [email or web address] or register during your next office visit. [facility], in keeping with [facility] guidance, no longer requires face masks for staff, patientsor visitors in most situations. Similiar to time spent indoors at other locations, there is the chance that you were exposed to repiratory viruses during your time with us (such as flu or COVID-19). If you develop symptoms concerning for a viral respiratory infection, please seek testing (and treatment if indicated) from your medical provider or home test kit. ?? Disclaimer: The information provided is of a general nature and is intended to be used in conjunction with the recommendations and advice of your health care practitioner. Every effort has been made to ensure that the information provided is accurate and complete at the time it is provided to you however, as your needs change, or, as new information becomes available, different or additional instructions may be required. ?? If you have questions, please consult with your primary care provider or pharmacist, as appropriate. This information is not intended to serve as substitution for assessment and evaluation by a qualified health care provider. If you do not have a primary care provider, you may find a [facility] provider by calling [facility] Link at [phone]. Patient Care team information Care Team Personnel Name: Beverly Elam RN Position: S RN Member Role: Primary Care Nurse Name: Aditi Plascencia Position: S RN Supv Member Role: Primary Care Nurse Name: Larisa Truong NP Position: [facility] PCO Associate Professional Member Role: PCP Address: Address: [address] [place] [address] 3rd [place] [address]- [place] Name: Ronda Madison RN Position: S RN Member Role: Primary Care Nurse Care Team Related Persons Name: ASHA SUH Name: RAMESH SUH Address: home [address] [place] [address] Name: HAJA SUH Address: home [address] [place] [address]
--- OUTSIDE RECORDS SUMMARY | 2024-07-15 19:02 | XMS_ITS | Continuity of Care Document ---
Author Organization [facility] Adult Address [address] [place] [address]- Care Team Providers Care Edging Machine Operator Name Role Phone Dionne BARR, Larisa Primary Care Physician [place] [facility] [place] 01/[place]/24 [facility] [address] [place] [address]- Attending Physician: Not on Staff, Attending MD [...] 06/24/23 12:52:00 EDT, Route to Pharmacy Electronically, [facility] #[id number], 180, cm, 06/24/23 11:02:00 EDT, Height, 118, kg, 03/26/23 17:27:00 EDT, Dry W... Start Date: 06/24/23 Status: Ordered Jardiance 10 mg oral tablet 1 tablet, By Mouth, Daily in AM, # 30 tablet, 3 Refills, Maintenance, 10/27/23 11:21:00 EST, [facility] #[id number], 180, cm, 08/29/23 12:04:00 EDT, Height, 118, kg, 03/26/23 17:27:00 EDT, Dry Weight Start Date: 10/27/23 Status: Ordered Lantus Solostar Pen 100 units/mL subcutaneous solution = 10 units, Subcutaneous Injection, Daily at bedtime, # 15 mL, 1 Refills, Maintenance, 01/09/24 15:12:00 EST, Solution, [facility] #[id number], Partial fill upon patient request if the prescription is for a schedule II opioid drug., 180, cm, 01/07... Start Date: 01/09/24 Stop Date: 03/09/24 Status: Ordered losartan 25 mg oral tablet 1 tablet, By Mouth, Daily, # 90 tablet, 0 Refills, Maintenance, 12/29/23 10:39:00 EST, [facility] #[id number], 180, cm, 08/29/23 12:04:00 EDT, Height, 118, kg, 03/26/23 17:27:00 EDT, Dry Weight Start Date: 12/29/23 Status: Ordered metFORMIN 1000 mg oral tablet 1 tablet, By Mouth, 2 times a day, # 180 tablet, 0 Refills, Maintenance, 12/29/23 10:40:00 EST, [facility] #[id number], 180, cm, 08/29/23 12:04:00 EDT, Height, 118, kg, 03/26/23 17:27:00 EDT, DryWeight Start Date: 12/29/23 Status: Ordered minocycline 100 mg oral capsule 1 capsule = 100 mg, By Mouth, Every 12 hours, for 10 days, # 20 capsule, 0 Refills, Acute 01/27/24 15:37:00 EST, 01/17/24 15:37:00 EST, Capsule, [facility] #[id number], Partial fill upon patient request if the prescription is for a schedule II opi... Start Date: 01/17/24 Stop Date: 01/27/24 Status: Ordered Pen [place], 30 G x 8 mm BD Ultra Fine II See Instructions, # 300 each, Refills 2, Tot. Refills 2, Maintenance, use as directed for Type 2 Diabetes Mellitus, 01/09/24 15:13:00 EST, Supply, 180, cm, 01/07/24 11:05:00 EST, Height, 120, kg, 01/02/24 0:32:00 EST, Dry Weight Start Date: 01/09/24 Stop Date: 10/05/24 Status: Ordered Pen [place], 31 G x 8 mm BD Ultra [...] 12/29/23 10:39:00 EST, Route to Pharmacy Electronically, [facility] #[id number], 180, cm, 08/29/23 12:04:00 EDT, Height, 118, kg, 03/26/23 17:27:00 EDT, Dry Weight Start Date: 12/29/23 Status: Ordered Trulicity Pen 0.75 mg/0.5 mL subcutaneous solution 0.5 mL = 0.75 mg, Subcutaneous Injection, Every week, rotate injection sites, # 2 mL, 1 Refills, Maintenance, 08/29/23 11:49:00 EDT, Solution, [facility] #[id number], Partial fill upon patient request if the [...] Team Personnel Name: Beverly Elam RN Position: [facility] RN Member Role: Primary Care Nurse Name: Aditi Plascencia Position: [facility] RN Supv Member Role: Primary Care Nurse Name: Larisa Truong NP Position: [facility] PCO Associate Professional Member Role: PCP Address: Address: [address] [place] [address]- Care Team Related Persons Name: ASHA SUH Name: RAMESH SUH Address: home [address] [place] [address] Name: HAJA SUH Address: home [address] [place] [address]
--- OUTSIDE RECORDS SUMMARY | 2024-07-15 19:02 | XMS_ITS | Continuity of Care Document ---
Author Organization [facility] Adult Address [address] [place] [address]- Care Team Providers Care Marine Geologist Name Role Phone Terrence BARR, Larisa Loyd Primary Care Physician Encounter [facility] [place](s): 08/29/23 - 09/05/23 [facility] [address] [place] [address]- Encounter Diagnosis Type 2 diabetes mellitus(Discharge Diagnosis) - 08/29/23 Right shoulder pain(Discharge Diagnosis) - 08/29/23 Severe obesity (BMI 35.0-39.9) with comorbidity(Discharge Diagnosis) - 08/29/23 Attending Physician: Not on Staff, Attending MD [...] 06/24/23 12:52:00 EDT, Route to Pharmacy Electronically, [facility] #[id number], 180, cm, 06/24/23 11:02:00 EDT, Height, 118, kg, 03/26/23 17:27:00 EDT, Dry W... Start Date: 06/24/23 Status: Ordered Jardiance 10 mg oral tablet 1 tablet = 10 mg, By Mouth, Daily in AM, # 30 tablet, 1 Refills, Maintenance, 08/29/23 11:50:00 EDT, Tablet, [facility] #[id number], Partial fill upon patient request if the prescription is for aschedule II opioid drug., 180, cm, 08/29/23 11:27:0... Start Date: 08/29/23 Stop Date: 10/28/23 Status: Ordered losartan 25 mg oral tablet 1 tablet, By Mouth, Daily, # 90 tablet, 2 Refills, Maintenance, 06/24/23 12:52:00 EDT, [facility] #[id number], 180, cm, 06/24/23 11:02:00 EDT, Height, 118, kg, 03/26/23 17:27:00 EDT, Dry Weight Start Date: 06/24/23 Status: Ordered metFORMIN 1000 mg oral tablet 1 tablet = 1,000 mg, By Mouth, 2 times a day, # 180 tablet, 2 Refills, Maintenance, 06/24/23 12:52:00 EDT, Tablet, [facility] #[id number], Partial fill upon patient request if the prescription isfor a schedule II opioid drug., 180, cm, 06/24/23 1... Start Date: 06/24/23 Stop Date: 03/20/24 Status: Ordered Ozempic 2 mg/1.5 mL (1 mg dose) subcutaneous solution = 1 mg, Subcutaneous Infusion, Every 7 days, # 3 mL, 0 Refills, Maintenance, 08/01/23 9:08:00 EDT, [facility] #[id number], Partial fill upon patient request if the prescription is for a schedule II opioid drug., 1 mg Subcutaneous Infusion Every 7... Start Date: 08/01/23 Stop Date: 08/29/23 Status: Ordered simvastatin 40 mg oral tablet 40 mg, 1, tablet, By Mouth, Daily at bedtime, # 90 tablet, Refills 2, Tot. Refills 2, Maintenance, 06/24/23 12:52:00 EDT, Route to Pharmacy Electronically, [facility] #[id number], Partial fill upon patient request if the prescription is for a sche... Start Date: 06/24/23 Stop Date: 03/20/24 Status: Ordered Trulicity Pen 0.75 mg/0.5 mL subcutaneous solution 0.5 mL = 0.75 mg, Subcutaneous Injection, Every week, rotate injection sites, # 2 mL, 1 Refills, Maintenance, 08/29/23 11:49:00 EDT, Solution, [facility] #[id number], Partial fill upon patient request if the [...] Informant Type 2 diabetes mellitus Discharge Diagnosis 08/29/23 Right shoulder pain Discharge Diagnosis 08/29/23 Severe obesity (BMI 35.0-39.9) with comorbidity Discharge Diagnosis 08/29/23 Vital Signs Most recent to oldest [Reference Range]: 1 2 Height 180 cm (08/29/23 12:04 PM) 180 cm (08/29/23 11:27 AM) Weight 123 kg (08/29/23 11:27 AM) Oxygen Saturation [94-100 %] 96 % (08/29/23 11:27 AM) Pulse Rate [55-90 bpm] 91 bpm *H* (08/29/23 11:27 AM) Body Mass Index [18.5-24.99 kg/m2] 37.96 kg/m2 *>HHI* (08/29/23 11:27 AM) Blood Pressure [90-138/55-84 mm Hg] 132/ 84mm Hg (08/29/23 12:04 PM) 132/87mm Hg (08/29/23 11:27 AM) Temperature [96.8-100.4 DegF] 97.6 DegF (08/29/23 11:27 AM) Mode of Delivery (Oxygen) Room air (08/29/23 11:27 AM) Blood pressure sites Arm, left (08/29/23 12:04 PM) Arm, left (08/29/23 11:27 AM) Temperature Route Temporal (08/29/23 11:27 AM) Weight Obtained Via Standing scale (08/29/23 11:27 AM) Social History Social History Type Response Smoking Status Former smoker, quit more than 30 days ago; Other: quit more than 10 years, smoked for three years; entered on: 12/20/22 Sex Note * Gay Santos: PERFORM, SIGN, VERIFY Event Display: Patient Education/Instruction Authored Date: [id number] [facility] *[facility] Clinical Summary Name EDWINA SUH Age 53 Years 1970 PCP Larisa Ocampo NP PCP Visit Date 08/29/2023 11:17:00 Additional Instructions: Scheduled Appointments?? Future Appointments ?*[facility] [address],??[address] ?Phone:??--?Fax:??-- ?Appt. Date:??09/26/2023?11:00 AM ?Scheduled Provider:??Larisa Ocampo NP Follow-Up Instructions ?? Diagnosis Type 2 diabetes mellitus without complications; Type 2 diabetes mellitus without complications; Morbid (severe) obesity due to excess calories; Pain in right shoulder Medications: Please continue your medications until treatment is completed or stopped by your provider. Discuss any questions related to medications with your provider. New [facility]ations [id number], [address], [place] [id number], [phone] dulaglutide (Trulicity Pen 0.75 mg/0.5 mL subcutaneous solution) 0.5 Milliliter Subcutaneous Injection every week for 4 week(s). rotate injection sites. Refills: 1. Next Dose: empagliflozin (Jardiance 10 mg oral tablet) 1 tab(s) Oral Daily in the morning for 30 Days. Refills: 1. Next Dose: Medications to Continue with No Changes [facility][id number], [address], [place] [id number], [phone] Durable Medical Equipment (Freestyle Lite Monitor) use for checking blood sugar once daily for type2 diabetes. Refills: 0. Next Dose: These medications were not printed or sent to your pharmacy Durable Medical Equipment (Alcohol Pads) use as directed for Type 2 Diabetes Mellitus. Refills: 5. Next Dose: Durable Medical Equipment (Freestyle Lite Lancets) use as directed for Type 2 Diabetes Mellitus. Refills: 5. Next Dose: Durable Medical Equipment (Freestyle Lite Test Strips) use as directed for Type 2 Diabetes Mellitus. Refills: 2. Next Dose: Ibuprofen (ibuprofen 800 mg oral tablet) 1 tab(s) Oral 3 times a day. Refills: 2. Next Dose: Losartan (losartan 25 mg oral tablet) 1 tab(s) Oral Daily. Refills: 2. Next Dose: Metformin (metFORMIN 1000 mg oral tablet) 1 tab(s) Oral twice a day for 90 Days. Refills: 2. Next Dose: semaglutide (Ozempic 2 mg/1.5 mL (1 mg dose) subcutaneous solution) 1 Milligram Subcutaneous Infusion every 7 days for 4 week(s). Refills: 0. Next Dose: Simvastatin (simvastatin 40 mg oral tablet) 1 tab(s) Oral Daily at Bedtime for 90 Days. Refills: 2. Next Dose: Allergy Info:?? naproxen; codeine Medications Given This Visit Future Orders ?No future orders Vital Signs Height 180 cm Weight 123 kg BMI 37.96 kg/m2 Blood Pressure 132 mm Hg/84 mm Hg Temperature 97.6 DegF Pulse Rate 91 bpm Respiratory Rate 02 Sat Mode of Delivery 96 %/Room air You can now view a summary of your hospital visit from the comfort of your home through a free online portal called [employer]. [employer] is a website that allows you to securely view your medical information including discharge summary, medications and follow-up visits. ??You can alsosend a secure electronic message to your doctor???s office to request appointments, renew medications or just ask a question. You can enroll at [email or web address] or register during your next office [...] primary care provider, you may find a [facility] provider by calling [facility] Link at [phone]. [facility], in keeping with [facility] guidance, no longer requires [...] Team Personnel Name: Larisa Ocampo NP Position: [facility] PCO Associate Professional Member Role: PCP Address: Address: [address] [place] [address]- Care Team Related Persons Name: ASHA SUH Name: RAMESH SUH Address: home [address] [place] [address] Name: HAJA SUH Address: home [address] [place] [address]
--- OUTSIDE RECORDS SUMMARY | 2024-07-15 19:02 | XMS_ITS | Continuity of Care Document ---
Author Organization [facility] Adult Address [address] [place] [address]- Care Team Providers Care Electrical Troubleshooter Name Role Phone Dionne BARR, Larisa Primary Care Physician [place] [facility] [place]): 01/27/24 - 02/26/24 [facility] Adult [address] [place] [address]- Allergies, Adverse Reactions, Alerts Substance Reaction Severity [...] 03/02/24 14:14:00 EDT, 02/03/24 14:14:00 EDT, Capsule, [facility] #[id number], Partial fill upon patient request if the [...] 1 Refills, Maintenance, 01/09/24 15:12:00 EST, Solution, [facility] #[id number], Partial fill upon patient request if the prescription is for a schedule II opioid drug., 180, cm, 01/07... Start Date: 01/09/24 Stop Date: 03/09/24 Status: Ordered losartan 25 mg oral tablet 1 tablet, By Mouth, Daily, # 90 tablet, 0 Refills, Maintenance, 12/29/23 10:39:00 EST, [facility] #[id number], 180, cm, 08/29/23 12:04:00 EDT, Height, 118, [...] tablet, 0 Refills, Maintenance, 12/29/23 10:40:00 EST, [facility] #[id number], 180, cm, 08/29/23 12:04:00 EDT, Height, 118, [...] drug. Start Date: 02/17/24 Status: Ordered Pen [place], 30 G x 8 mm BD Ultra Fine II See Instructions, # 300 each, Refills 2, Tot. Refills 2, Maintenance, use as directed for Type 2 Diabetes Mellitus, 01/09/24 15:13:00 EST, Supply, 180, cm, 01/07/24 11:05:00 EST, Height, 120, kg, 01/02/24 0:32:00 EST, Dry Weight Start Date: 01/09/24 Stop Date: 10/05/24 Status: Ordered Pen [place], 31 G x 8 mm BD Ultra [...] NP Position: [facility] PCO Associate Professional Member Role: PCP Address: Address: [address] [place] [address] [address]rd [address] [place], [place] [address] Name: Ronda Madison RN Position: S RN Member Role: Primary Care Nurse Care Team Related Persons Name: ASHA SUH Name: RAMESH SUH Address: home [address] [place] [address] Name: HAJA SUH Address: home [address] [place] [address]
--- OUTSIDE RECORDS SUMMARY | 2024-07-15 19:02 | XMS_ITS | Continuity of Care Document ---
Author Organization [facility] Adult Address [address] [place] [address]- Care Team Providers Care Fabric Inspector Name Role Phone Dionne BARR, Larisa Primary Care Physician Encounter [facility] [place] Date(s): 10/04/23 - 11/03/23 [facility] Adult [address] [place] [phone]- Allergies, Adverse Reactions, Alerts Substance Reaction Severity [...] 06/24/23 12:52:00 EDT, Route to Pharmacy Electronically, [facility] #[id number], 180, cm, 06/24/23 11:02:00 EDT, Height, 118, kg, 03/26/23 17:27:00 EDT, Dry W... Start Date: 06/24/23 Status: Ordered Jardiance 10 mg oral tablet 1 tablet, By Mouth, Daily in AM, # 30 tablet, 3 Refills, Maintenance, 10/27/23 11:21:00 EST, [facility] #[id number], 180, cm, 08/29/23 12:04:00 EDT, Height, 118, [...] tablet, 2 Refills, Maintenance, 06/24/23 12:52:00 EDT, [facility] #[id number], 180, cm, 06/24/23 11:02:00 EDT, Height, 118, kg, 03/26/23 17:27:00 EDT, Dry Weight Start Date: 06/24/23 Status: Ordered metFORMIN 1000 mg oral tablet 1 tablet = 1,000 mg, By Mouth, 2 times a day, # 180 tablet, 2 Refills, Maintenance, 06/24/23 12:52:00 EDT, Tablet, [facility] #[id number], Partial fill upon patient request if the prescription isfor a schedule II opioid drug., 180, cm, 06/24/23 1... Start Date: 06/24/23 Stop Date: 03/20/24 Status: Ordered Ozempic 2 mg/1.5 mL (1 mg dose) subcutaneous solution = 1 mg, Subcutaneous Infusion, Every 7 days, # 3 mL, 0 Refills, Maintenance, 08/01/23 9:08:00 EDT, [facility] #[id number], Partial fill upon patient request if the prescription is for a schedule II opioid drug., 1 mg Subcutaneous Infusion Every 7... Start Date: 08/01/23 Stop Date: 08/29/23 Status: Ordered simvastatin 40 mg oral tablet 40 mg, 1, tablet, By Mouth, Daily at bedtime, # 90 tablet, Refills 2, Tot. Refills 2, Maintenance, 06/24/23 12:52:00 EDT, Route to Pharmacy Electronically, [facility] #[id number], Partial fill upon patient request if the prescription is for a sche... Start Date: 06/24/23 Stop Date: 03/20/24 Status: Ordered Trulicity Pen 0.75 mg/0.5 mL subcutaneous solution 0.5 mL = 0.75 mg, Subcutaneous Injection, Every week, rotate injection sites, # 2 mL, 1 Refills, Maintenance, 08/29/23 11:49:00 EDT, Solution, [facility] #[id number], Partial fill upon patient request if the [...] Team Personnel Name: Larisa Truong NP Position: [facility] PCO Associate Professional Member Role: PCP Address: Address: [address] [place] [address] [address] [place] [address]- Care Team Related Persons Name: ASHA SUH Name: RAMESH SUH Address: home [address] [place] [address] Name: HAJA SUH Address: home [address] [place] [address]
--- OUTSIDE RECORDS SUMMARY | 2024-07-15 19:02 | XMS_ITS | Continuity of Care Document ---
Author Organization [facility] Adult Address [address] [place] [address]- Care Team Providers Care Vac Press Operator Name Role Phone Dionne BARR, Larisa Primary Care Physician Encounter [facility] [place] Date(s): 06/28/23 - 10/26/23 [facility] Adult [address] [place] [address]- Attending Physician: Not on Staff, Attending MD [...] 06/24/23 12:52:00 EDT, Route to Pharmacy Electronically, [facility] #[id number], 180, cm, 06/24/23 11:02:00 EDT, Height, 118, kg, 03/26/23 17:27:00 EDT, Dry W... Start Date: 06/24/23 Status: Ordered Jardiance 10 mg oral tablet 1 tablet = 10 mg, By Mouth, Daily in AM, # 30 tablet, 1 Refills, Maintenance, 08/29/23 11:50:00 EDT, Tablet, [facility] #[id number], Partial fill upon patient request if the prescription is for aschedule II opioid drug., 180, cm, 08/29/23 11:27:0... Start Date: 08/29/23 Stop Date: 10/28/23 Status: Ordered Lancets Lancets, See Instructions, # 100 each, Refills 5, Tot. Refills 5, Maintenance, Use to test blood sugars once daily, 10/05/23 13:43:00 EST, Supply, 180, cm, 08/29/23 12:04:00 EDT, Height, 118, kg, 03/26/23 17:27:00 EDT, Dry Weight Start Date: 10/05/23 Status: Ordered losartan 25 mg oral tablet 1 tablet, By Mouth, Daily, # 90 tablet, 2 Refills, Maintenance, 06/24/23 12:52:00 EDT, [facility] #[id number], 180, cm, 06/24/23 11:02:00 EDT, Height, 118, kg, 03/26/23 17:27:00 EDT, Dry Weight Start Date: 06/24/23 Status: Ordered metFORMIN 1000 mg oral tablet 1 tablet = 1,000 mg, By Mouth, 2 times a day, # 180 tablet, 2 Refills, Maintenance, 06/24/23 12:52:00 EDT, Tablet, [facility] #[id number], Partial fill upon patient request if the prescription isfor a schedule II opioid drug., 180, cm, 06/24/23 1... Start Date: 06/24/23 Stop Date: 03/20/24 Status: Ordered Ozempic 2 mg/1.5 mL (1 mg dose) subcutaneous solution = 1 mg, Subcutaneous Infusion, Every 7 days, # 3 mL, 0 Refills, Maintenance, 08/01/23 9:08:00 EDT, [facility] #[id number], Partial fill upon patient request if the prescription is for a schedule II opioid drug., 1 mg Subcutaneous Infusion Every 7... Start Date: 08/01/23 Stop Date: 08/29/23 Status: Ordered simvastatin 40 mg oral tablet 40 mg, 1, tablet, By Mouth, Daily at bedtime, # 90 tablet, Refills 2, Tot. Refills 2, Maintenance, 06/24/23 12:52:00 EDT, Route to Pharmacy Electronically, [facility] #[id number], Partial fill upon patient request if the prescription is for a sche... Start Date: 06/24/23 Stop Date: 03/20/24 Status: Ordered Trulicity Pen 0.75 mg/0.5 mL subcutaneous solution 0.5 mL = 0.75 mg, Subcutaneous Injection, Every week, rotate injection sites, # 2 mL, 1 Refills, Maintenance, 08/29/23 11:49:00 EDT, Solution, [facility] #[id number], Partial fill upon patient request if the [...] Team Personnel Name: Larisa Truong NP Position: S PCO Associate Professional Member Role: PCP Address: Address: [address] [place] [address] [address] [place], [place] [address] Care Team Related Persons Name: ASHA SUH Name: RAMESH SUH Address: home [address] [place] [address] Name: HAJA SUH Address: home [address] [place] [address]
--- OUTSIDE RECORDS SUMMARY | 2024-07-15 19:02 | XMS_ITS | Continuity of Care Document ---
Author Organization [facility] Adult Address [address] [place] [address]- Care Team Providers Care Braze Operator Name Role Phone Terrence BARR, Larisa Loyd Primary Care Physician [phone] Encounter [facility] [place] Date(s): 05/23/23 - 06/22/23 [facility] Adult [address] [place] [address]- Allergies, Adverse Reactions, Alerts Substance Reaction Severity [...] 05/12/23 9:18:00 EDT, Route to Pharmacy Electronically, [facility] #[id number], 180, cm, 04/12/23 8:37:00 EDT, Height, 118, kg, 03/26/23 17:27:00 EDT, Dry Weight Start Date: 05/12/23 Stop Date: 06/12/23 Status: Ordered losartan 25 mg oral tablet 1 tablet, By Mouth, Daily, # 90 tablet, 2 Refills, Maintenance, 06/14/23 13:14:00 EDT, [id number], 180, cm, 04/12/23 8:37:00 EDT, Height, 118, kg, 03/26/23 17:27:00 EDT, Dry Weight Start Date: 06/14/23 Status: Ordered metFORMIN 1000 mg oral tablet 1 tablet = 1,000 mg, By Mouth, 2 times a day, # 180 tablet, 2 Refills, Maintenance, 12/20/22 11:02:00 EST, Tablet, [facility] #1234, Partial fill upon patient request if the prescription is for a schedule II opioid drug., 180, cm, 12/20/22 10:05:00... Start Date: 12/20/22 Stop Date: 09/16/23 Status: Ordered simvastatin 40 mg oral tablet 40 mg, 1, tablet, By Mouth, Daily at bedtime, # 90 tablet, Refills 2, Tot. Refills 2, Maintenance, 03/17/23 13:28:00 EDT, Route to Pharmacy Electronically, [facility]acy #1234, Partial fill upon patient request if the prescription is for a schedule II... Start Date: 03/17/23 Stop Date: 12/12/23 Status: Ordered Trulicity Pen 0.75 mg/0.5 mL subcutaneous solution 0.5 mL = 0.75 mg, Subcutaneous Injection, Every week, rotate injection sites, # 2.5 mL, 0 Refills, Maintenance, 03/17/23 13:29:00 EDT, Solution, [facility]acy #1234, Partial fill upon patient request if the prescription is for a schedule II opioid drug... Start Date: 03/17/23 Stop Date: 04/16/23 Status: Ordered Trulicity Pen 1.5 mg/0.5 mL subcutaneous solution 0.5 mL = 1.5 mg, Subcutaneous Injection, Every week, rotate injection sites, # 2 mL, 3 Refills, Maintenance, 05/02/23 8:44:00 EDT, Solution, [facility] #1234, Partial fill upon patient request [...] Personnel Name: Terrence BARR, Larisa Loyd Position: [facility] PCO Associate Professional Member Role: PCP Address: Address: [address] [place] [address] [address]rd [place] [address]- Care Team Related Persons Name: ASHA SUH Name: RAMESH SUH Address: home [address] [place] [address] Name: HAJA SUH Address: home [address] [place] [address]
--- OUTSIDE RECORDS SUMMARY | 2024-07-15 19:02 | XMS_ITS | Continuity of Care Document ---
Author Organization [facility] Adult Address [address] [place] [address]- Care Team Providers Care Marketing Traffic Coordinator Name Role Phone Dionne BARR, Larisa Primary Care Physician Encounter [place] Date(s): 09/26/23 - 10/26/23 [facility] Adult [address] [place] [address]- Attending Physician: Admtr, Ar8 Admitting Physician: Admtr, Ar8 Referring Physician: Admtr, Ar8 Allergies, Adverse Reactions, [...] 06/24/23 12:52:00 EDT, Route to Pharmacy Electronically, [facility] #[id number], 180, cm, 06/24/23 11:02:00 EDT, Height, 118, kg, 03/26/23 17:27:00 EDT, Dry W... Start Date: 06/24/23 Status: Ordered Jardiance 10 mg oral tablet 1 tablet = 10 mg, By Mouth, Daily in AM, # 30 tablet, 1 Refills, Maintenance, 08/29/23 11:50:00 EDT, Tablet, [facility] #[id number], Partial fill upon patient request if the [...] tablet, 2 Refills, Maintenance, 06/24/23 12:52:00 EDT, [facility] #[id number], 180, cm, 06/24/23 11:02:00 EDT, Height, 118, kg, 03/26/23 17:27:00 EDT, Dry Weight Start Date: 06/24/23 Status: Ordered metFORMIN 1000 mg oral tablet 1 tablet = 1,000 mg, By Mouth, 2 times a day, # 180 tablet, 2 Refills, Maintenance, 06/24/23 12:52:00 EDT, Tablet, [facility] #[id number], Partial fill upon patient request if the prescription isfor a schedule II opioid drug., 180, cm, 06/24/23 1... Start Date: 06/24/23 Stop Date: 03/20/24 Status: Ordered Ozempic 2 mg/1.5 mL (1 mg dose) subcutaneous solution = 1 mg, Subcutaneous Infusion, Every 7 days, # 3 mL, 0 Refills, Maintenance, 08/01/23 9:08:00 EDT, [facility] #[id number], Partial fill upon patient request if the prescription is for a schedule II opioid drug., 1 mg Subcutaneous Infusion Every 7... Start Date: 08/01/23 Stop Date: 08/29/23 Status: Ordered simvastatin 40 mg oral tablet 40 mg, 1, tablet, By Mouth, Daily at bedtime, # 90 tablet, Refills 2, Tot. Refills 2, Maintenance, 06/24/23 12:52:00 EDT, Route to Pharmacy Electronically, [facility] #[id number], Partial fill upon patient request if the prescription is for a sche... Start Date: 06/24/23 Stop Date: 03/20/24 Status: Ordered Trulicity Pen 0.75 mg/0.5 mL subcutaneous solution 0.5 mL = 0.75 mg, Subcutaneous Injection, Every week, rotate injection sites, # 2 mL, 1 Refills, Maintenance, 08/29/23 11:49:00 EDT, [facility] #[id number], Partial fill upon patient request if the [...] Team Personnel Name: Larisa Truong NP Position: [facility] PCO Associate Professional Member Role: PCP Address: Address: [address] [place] [address] [address] [place], [place] [address] Care Team Related Persons Name: ASHA SUH Name: RAMESH SUH Address: home [address] [place] [address] Name: HAJA SUH Address: home [address] [place] [address]
--- OUTSIDE RECORDS SUMMARY | 2024-07-15 19:02 | XMS_ITS | Continuity of Care Document ---
Author Organization [facility] Address [address] [place] [address]- Care Team Providers Care Cord Maker Name Role Phone Dionne BARR, Larisa Primary Care Physician [phone] [place] [facility] [place]): 02/03/24 - 03/16/24 [facility] [address] [place] [address]- Attending Physician: Michael BARR, Sandra Contreras Admitting Physician: Michael BARR, Sandra Contreras Referring Physician: Huy Gaitan Allergies, Adverse Reactions, Alerts Substance Reaction Severity [...] 1 Refills, Maintenance, 01/09/24 15:12:00 EST, Solution, [facility] #[id number], Partial fill upon patient request if the prescription is for a schedule II opioid drug., 180, cm, 01/07... Start Date: 01/09/24 Stop Date: 03/09/24 Status: Ordered losartan 25 mg oral tablet 1 tablet, By Mouth, Daily, # 90 tablet, 0 Refills, Maintenance, 12/29/23 10:39:00 EST, [facility] #[id number], 180, cm, 08/29/23 12:04:00 EDT, Height, 118, kg, 03/26/23 17:27:00 EDT, Dry Weight Start Date: 12/29/23 Status: Ordered metFORMIN 1000 mg oral tablet 1 tablet, By Mouth, 2 times a day, # 180 tablet, 0 Refills, Maintenance, 12/29/23 10:40:00 EST, [facility] #[id number], 180, cm, 08/29/23 12:04:00 EDT, Height, 118, kg, 03/26/23 17:27:00 EDT, DryWeight Start Date: 12/29/23 Status: Ordered Pen [place], 31 G x 8 mm BD Ultra [...] Associate Professional Member Role: PCP Address: Address: [address] [place] [id number] Name: Ronda Madison RN Position: S RN Member Role: Primary Care Nurse Care Team Related Persons Name: ASHA SUH Name: RAMESH SUH Address: home [address] [place] [address] Name: HAJA SUH Address: home [address] [place] [address]
--- OUTSIDE RECORDS SUMMARY | 2024-07-15 19:02 | XMS_ITS | Continuity of Care Document ---
Author Organization [facility] Address [address] [place] [id number]- Care Team Providers Care Scheduling Coordinator Name Role Phone Dionne BARR, Larisa Primary Care Physician Encounter [facility] Date(s): 02/14/24 - 02/17/[address] [address]- Discharge Disposition: Disch/Trans to IP Rehab or unit w/in Hos Attending Physician: Kae Miller MD Admitting Physician: Dori SEQUEIRA, Debbi Referring Physician: Not on Staff, Referring MD [...] opioid drug. Start Date: 02/17/24 Status: Ordered acetaminophen-oxyCODONE 325 mg-5 mg oral tablet 1, tablet, By Mouth, Every 6 hours, PRN, for 3 days, # 12 tablet, Refills 0, Tot. Refills 0, Acute,Pain , Moderate, 02/20/24 8:32:00 EDT, 02/17/24 8:32:00 EDT, Print Requisition, Tablet, Partial fill upon patient request if the prescription is for a... Start Date: 02/17/24 Stop Date: 02/20/24 Status: Ordered acetaminophen-oxyCODONE 325 mg-5 mg oral tablet 2, tablet, By Mouth, Every 6 hours, PRN, for 3 days, # 24 tablet, Refills 0, Tot. Refills 0, Acute,Pain , Severe, 02/20/24 8:32:00 EDT, 02/17/24 8:32:00 EDT, Print Requisition, Tablet, Partial fill upon patient request if the prescription is for a sc... Start Date: 02/17/24 Stop Date: 02/20/24 Status: Ordered ascorbic acid 250 mg oral [...] 03/02/24 14:14:00 EDT, 02/03/24 14:14:00 EDT, [id number], Partial fill upon patient request if the [...] 1 Refills, Maintenance, 01/09/24 15:12:00 EST, Solution, [facility] #[id number], Partial fill upon patient request if the prescription is for a schedule II opioid drug., 180, cm, 01/07... Start Date: 01/09/24 Stop Date: 03/09/24 Status: Ordered losartan 25 mg oral tablet 25 mg, Tablet, By Mouth, 02/17/24 9:00:00 EDT Start Date: 02/17/24 Stop Date: 02/17/24 Status: Completed losartan 25 mg oral tablet 1 tablet, By Mouth, Daily, # 90 tablet, 0 Refills, Maintenance, 12/29/23 10:39:00 EST, [facility] #[id number], 180, cm, 08/29/23 12:04:00 EDT, Height, 118, [...] tablet, 0 Refills, Maintenance, 12/29/23 10:40:00 EST, [facility][id number], 180, cm, 08/29/23 12:04:00 EDT, Height, 118, [...] opioid drug. Start Date: 02/17/24 Status: Ordered oxyCODONE 5 mg oral tablet 10 mg, Tablet, By Mouth, Every 4 hours for 7 days, PRN for Pain , Severe, Routine, 02/14/24 20:28:00 EDT, Stop date 02/21/24 20:27:00 EDT Start Date: 02/14/24 Stop Date: 02/18/24 Status: Discontinued Pen Nahunta, 30 G x 8 mm BD Ultra Fine II See Instructions, # 300 each, Refills 2, Tot. Refills 2, Maintenance, use as directed for Type 2 Diabetes Mellitus, 01/09/24 15:13:00 EST, Supply, 180, cm, 01/07/24 11:05:00 EST, Height, 120, kg, 01/02/24 0:32:00 EST, Dry Weight Start Date: 01/09/24 Stop Date: 10/05/24 Status: Ordered Pen Nahunta, 31 G x 8 mm BD Ultra [...] Active Type 2 diabetes mellitus Confirmed Active Procedures Procedure Date Related Diagnosis Body Site Status Treatment of intertrochanter ic, peritrochanteric, or subtrochanteric femoral fracture; with intramedullary implant, with or without interlocking screws and/or cerclage 1 02/15/24 [facility] Inter[facility], 10 mm x 18 cm 125 degree with 95/90 mm integrated lag screw, and 35 mmdistal interlocking screw. Results Radiology Reports * Exam Date Time Procedure Performing Provider Status 02/15/24 4:15 PM C-Arm < 1 Hour Juan Kaplan (Verified) Notes: (C-Arm < 1 Hour) Reason For Exam: FRACTURE HIP Right Hip Intertan RESULT: C-Arm < 1 Hour Hip Comp 2 Views Right, C-Arm < 1 Hour INDICATION: Reason: FRACTURE HIP Right Hip Intertan COMPARISONS: None TECHNIQUE: Fluoroscopy support was provided. There was no radiologist in attendance. FLUOROSCOPY TIME: 1 minute 05.9 seconds EXPOSURE: 4.4031 Gycm2 (Dose Area Product) TECHNOLOGIST TIME: 35 minutes FINDINGS: Intraoperative images obtained during right hip ORIF with short intramedullary chani with proximal distal joint screws. No evidence of hardware complication. IMPRESSION: See above. WSN: [id number] Ordering Physician: Armando Ybarra Dictated By: Raymon Yu MD Dictated Date/Time: 02/15/24 4:24 pm Reviewed By: Raymon Yu MD Signed By: Raymon Yu MD Signed Date/Time: 02/15/24 4:24 pm Transcribed By: SANDY Transcribed Date/Time: 02/15/24 4:23 pm * Exam Date Time Procedure Performing Provider Status 02/15/24 4:15 PM XR Hip Comp 2 Views Right Kristi Kaplan; Modified Notes: (XR Hip Comp 2 Views Right) Reason For Exam: FRACTURE HIP Right Hip Intertan RESULT: Hip Comp 2 Views Right Hip Comp 2 Views Right, C-Arm < 1 Hour INDICATION: Reason: FRACTURE HIP Right Hip Intertan COMPARISONS: None TECHNIQUE: Fluoroscopy support was provided. There was no radiologist in attendance. FLUOROSCOPY TIME: 1 minute 05.9 seconds EXPOSURE: 4.4031 Gycm2 (Dose Area Product) TECHNOLOGIST TIME: 35 minutes FINDINGS: Intraoperative images obtained during right hip ORIF with short intramedullary chani with proximal distal joint screws. No evidence of hardware complication. IMPRESSION: See above. WSN: [id number] Ordering Physician: Armando Ybarra Dictated By: Raymon Yu MD Dictated Date/Time: 02/15/24 4:24 pm Reviewed By: Raymon Yu MD Signed By: Raymon Yu MD Signed Date/Time: 02/15/24 4:24 pm Transcribed By: SANDY Transcribed Date/Time: 02/15/24 4:23 pm * Exam Date Time Procedure Performing Provider Status 02/14/24 9:59 PM Chest Portable Forte , Ronan; Auth (Jessica ified) Notes: (Chest Portable) Reason For Exam: Shortness of Breath RESULT: Chest Portable Chest Portable Reason: Shortness of Breath; Clinical Question(s): CHF COMPARISON: None. FINDINGS: LINES AND TUBES: None. LUNGS AND PLEURA: Lung volumes are low. Central pulmonary vascular congestion without overt interstitial edema. No pleural effusion. No pneumothorax. HEART, MEDIASTINUM AND EDILMA: Heart is normal in size. Normal mediastinal and hilar contour. BONES AND SOFT TISSUES: No acute abnormality. IMPRESSION: Central pulmonary vascular congestion without overt interstitial edema. WSN: [id number] Ordering Physician: Vitaliy Cervantes Dictated By: Jael Garcia MD Dictated Date/Time: 02/15/24 0:23 am Reviewed By: Jael Garcia MD Signed By: Jael Garcia MD Signed Date/Time: 02/15/24 0:23 am Transcribed By: SANDY Transcribed Date/Time: 02/15/24 0:23 am Vital Signs Most recent to oldest [Reference Range]: 1 2 3 Height 180.34 cm (02/17/24 2:26 PM) 180.34 cm (02/17/24 11:04 AM) 180.34 cm (02/17/24 7:14 AM) Weight 121.8 kg (02/15/24 2:13 PM) 121.8 kg (02/14/24 7:20 PM) Oxygen Saturation [94-100 %] 95 % (02/17/24: PM) 96 % (02/17/24 11:04 AM) 98 % (02/17/24 7:14 AM) Pulse Rate [55-90 bpm] 88 bpm (02/17/24 2:26 PM) 89 bpm (02/17/24 11:04 AM) 97 bpm *H* (02/17/24 7:14 AM) Body Mass Index [18.5-24.99 kg/m2] 37.45 kg/m2 *>HHI* (02/15/24 2:13 PM) 37.45 kg/m2 *>HHI* (02/14/24 7:20 PM) Blood Pressure [90-138/55-84 mm Hg] 125/60mm Hg (02/17/24 2:26 PM) 102/57mm Hg (02/17/24 11:04 AM) 143/70mm Hg *H* (02/17/24 8:17 AM) Respiratory Rate [16-30 br/min] 18 br/min (02/17/24 2:26 PM) 18 br/min (02/17/24 1:56 PM) 16 br/min (02/17/24 12:48 PM) Temperature [96.8-100.4 DegF] 97.5 DegF (02/17/24 2:26 PM) 97 DegF (02/17/24 11:04 AM) 98.7 DegF (02/17/24 7:14 AM) Liters per Minute 2 L/min (02/15/24 9:10 PM) 3 L/min (02/15/24 5:50 PM) 3 L/min (02/15/24 4:45 PM) Mode of Delivery (Oxygen) Room air (02/17/24 2:26 PM) Room air (02/17/24 11:04 AM) Room air (02/17/24 7:14 AM) Blood pressure sites Arm, right (02/17/24 2:26 PM) Arm, right (02/17/24 11:04 AM) Arm, right (02/17/24 7:14 AM) Temperature Route Oral (02/17/24 2:26 PM) Oral (02/17/24 11:04 AM) Oral (02/17/24 7:14 AM) Dry Weight 121.8 kg (02/15/24 2:13 PM) 121.8 kg (02/14/24 7:20 PM) Weight Obtained Via Bed scale (02/14/24 7:20 PM) Social History Social History Type Response Smoking Status Former smoker, quit more than 30 days ago; Other: quit more than 10 years, smoked for three years; entered on: 12/20/22 Sex History and physical note * Helen SEQUEIRA, Vitaliy A: PERFORM, MODIFY, MODIFY Event Display: History and Physical Hospital Authored Date: Patient: ??EDWINA PHELPS ? Age:??54 Years?Sex:??Male?:??1970?? History of Present Illness 02/13 ?? 54-year-old male with PMH including HTN, HLD, DM, diabetic foot ulcer, recent diagnosis of osteomyelitis/necrotic ulcer s/p right great toe amputation and left second toe amputation, obesity, depression.?? Patient was transferred to [facility] from [facility] for further management of right femoral fracture. ?? The patient told me that he had severe diarrhea last night, almost every 15 minutes, watery diarrhea, no blood or black stool.?? He also nausea and vomited once.?? He said that prior to that he had hamburger, and it felt like the bug was stuck in my stomach , but denies any abdominal pain.?? No fever.?? His last bowel movement was around 2 PM today.?? Has not had any further bowel movement in the last 7 hours.?? His and daughter also had similar GI symptoms. ?? He said that earlier in the morning when he was going to the bathroom he suddenly felt dizzy and lightheaded and fell down.?? Denies any chest pain, palpitation, shortness of breath at the time.?? Notrauma to head or neck, no loss of consciousness.?? He immediately developed pain in the right hip,was unable to get up, and went to [facility] for further evaluation. ?? Chart reviewed.?? Patient has remained afebrile, tachycardic 100s, blood pressure stable, currentlyon 2 L oxygen (patient says that this is due to narcotic pain medication).?? Labs shows leukocytosis 14.6 (seems he always had slight leukocytosis), mostly normal BMP, normal lipase.?? EKG showed sinus rhythm with heart rate of 106, QTc 499, RBBB.?? X-ray of the right hip with pelvis shows acute mildly displaced intertrochanteric fracture of the right femur. ?? At [facility] patient was seen by orthopedic surgery recommended open reduction and internalfixation.?? However patient requested to be transferred to [facility].?? Due to his comorbidities patient was transferred to [facility] for medical admission and evaluation by orthopedic surgery. Review of Systems All systems reviewed and negative except as in HPI. Objective Measurements?? Height: 180.34 cm (02/14/24) Weight: 121.8 kg (02/14/24) Dry Weight: 121.8 kg (02/14/24) Body Mass Index:??37.45 kg/m2??Critical (02/14/24) ? Vital Signs?? Temperature: 97.9 DegF (02/14/24 19:20:00) Temperature Route: Oral (02/14/24 19:20:00) Pulse Rate:??100 bpm??High (02/14/24 19:20:00) Respiratory Rate: 18 br/min (02/14/24 19:20:00) Systolic Blood Pressure:??144 mm Hg??High (02/14/24 19:20:00) Diastolic Blood Pressure: 79 mm Hg (02/14/24 19:20:00) Blood pressure sites: Arm, right (02/14/24 19:20:00) Mean Arterial Pressure: 101 mm Hg (02/14/24 19:20:00) Pulse Pressure: 65 mm Hg (02/14/24 19:20:00) Oxygen Saturation: 98 % (02/14/24 18:29:00) Liters per Minute: 2 L/min (02/14/24 18:29:00) Mode of Delivery (Oxygen): Room air (02/14/24 19:20:00) Early Warning Score: 2 (02/14/24 19:46:30) ? Physical Exam Constitutional: ??Alert,??no acute distress, co-operative, lying on the bed, on 2L oxygen. Obesity.?? Mental state: Oriented x 3. Head: ??Normocephalic, atraumatic. ?? Eye:?No discharge. ENT: No discharge. Neck: ??Supple,??no JVD. Cardiovascular: ??S1, S2. Regular rhythm. No MRG. Respiratory: ??Lungs are clear to auscultation b/l, No RRR. ?? Gastrointestinal: ??Soft, Nontender, Non distended, ??Normal bowel sounds.?? Genitourinary: No costovertebral angle tenderness. Neurological: ??Cranial nerves intact. Motor and sensory intact. Limited exam of right LE.?? Back: ??Nontender. Musculoskeletal: ??Right hip - tender to palpation, limited rom due to pain. Leg is neurovascularlyintact. Both feet wrapped in bandage which is dry. No tenderness / oozing from amputation site.?? No edema Hematology: No lymphadenopathy Skin: ??Warm, dry. Psychiatric: ??Cooperative.?? Assessment/Plan Diagnoses Diabetes ??(E11.9) Diabetic foot ulcer ??(E11.621) Diarrhea ??(R19.7) Fall at home ??(W19.XXXA) Gastroenteritis ??(K52.9) HLD (hyperlipidemia) ??(E78.5) HTN (hypertension) ??(I10) Hip fracture ??(S72.009A) Osteomyelitis ??(M86.9) Syncope ??(R55) ?? Assessment:??54-year-old male with PMH including HTN, HLD, DM, diabetic foot ulcer, recent diagnosis of osteomyelitis/necrotic ulcer s/p right great toe amputation and left second toe amputation, obesity, depression. Patient was transferred to [facility] from [facility] for further management of rightfemoral fracture. ?? Diarrhea (R19.7):??. Gastroenteritis (K52.9):??. Multiple episodes of diarrhea since last night, 1 episode of vomiting, no bleeding.?? No abdominal pain, no fever.?Patient says that he had some hamburger prior to this.?? Multiple family numbers??also have similar symptoms.?? Seems to be??viral gastroenteritis.?? Symptoms have resolved, no??further diarrhea??for??about 7 hours.?? Abdomen??is??benign, nontender.?? No further workup??necessary??unless return of symptoms. ?? Fall at home (W19.XXXA):??. Syncope (R55):??. Patient??said that he felt dizzy, lightheaded when standing oxygen the bathroom and then fell down.??This likely??orthostatic??due to??low??blood pressure/low volume??from multiple episodes of diarrhea??earlier in the??night.?? Differentials would be??vasovagal from??GI symptoms, arrhythmia,??less likely??ischemia, did not have any??chest pain.?? EKG nonischemic.?? I will??monitor in telemetry??and??check??troponin.?? Gentle IV fluid hydration. ?? Hip fracture (S72.009A):?? Hypoxia: Fall at home has led to??acute??nondisplaced??intertrochanteric right femoral fracture. ??Evaluatedby??orthopedic surgery,??patient needs ORIF.?? I was informed by the orthopedic PA that patient will be??seen in the morning and plan for surgery in the??next day or 2. Will keep n.p.o. overnight. Pain control,??oxycodone??ordered by??orthopedic surgery. Nonweightbearing??status. DVT prophylaxis ordered by orthopedic surgery. I will give IV??fluid hydration. PT consult??ordered by orthopedic surgery. ?? Risk stratification: As per RCRI criteria patient has??class II risk??6%??30-day risk of , [place],??cardiac arrest. ARISCAT score??11-34 depending on duration of the??surgery??placing him on??low to intermediate risk??for postop pulmonary complications including respiratory failure, respiratory infection,??pleuraleffusion, atelectasis, pneumothorax, bronchospasm, aspiration pneumonitis. Currently on 2 L oxygen,??but no??respiratory symptoms,??lung sounds clean.?? Likely due to narcotic medication. ??May also have??obesity hypoventilation/sleep apnea.?? I will get a chest x-ray??for further evaluation. Patient did??lose??volume due to??diarrhea last night, will hydrate overnight. ?? QT prolongation: We will check??and correct??potassium and magnesium level. Avoid??QT prolonging medications. ?? Diabetes (E11.9):??. Hold oral medications. Lantus 10 units at night. POC glucose and SSI using DATA MANAGEMENT SPECIALIST protocol. ?? Diabetic foot ulcer (E11.621):??. Osteomyelitis (M86.9):??. Patient is on??doxycycline which we will continue. Patient says that he is supposed to take doxycycline 1 more week. Wound??care consult. ?? HLD (hyperlipidemia) (E78.5):??. Continue??simvastatin. ?? HTN (hypertension) (I10):??. Continue losartan. ?? VTE Prophylaxis:??enoxaparin ordered by orthopedic sx ?VTE Prophylaxis Assessment:??VTE Prophylaxis Ordered ?? Code Status:??full code ?Order Code Status:??Code Status Ordered ?? Discharge Planning:? Histories Allergies Allergies ?(Active and Proposed Allergies Only) codeine? (Severity: Unknown severity, Onset: Unknown) naproxen? (Severity: Unknown severity, Onset: Unknown) ? Past Medical History/Problem List Active Problems??(13) Amputation of toe of left foot Balanitis Class 2 obesity with body mass index (BMI) of 37.0 to 37.9 in adult Hyperglycemia due to diabetes mellitus Hyperlipidemia Hypertension Hypokalemia Positive screening for depression on 2-item Patient Health Questionnaire (PHQ-2) Right shoulder pain Screening for prostate cancer Severe obesity (BMI 35.0-39.9) with comorbidity Status post amputation of right great toe Type 2 diabetes mellitus ? Past Surgical History Cholecystectomy Knee joint operation Wrist repair ? Social History Alcohol Details:??Frequency: once or twice a year. Employment/School Details:??Status: Employed. ??Other: [employer]. Exercise Details:??Regular exercise: Yes. ??Exercise type: Walking. Home/Environment Details:??Living situation: Home/Independent. ??Lives with: Children, Spouse, grandchild. Nutrition/Health Details:??Diet: Regular. ??Other: admits to eating unhealthy. Sexual Details:??Sexually involved in last 6 months: No. Substance Abuse Details:??Use: Never. Tobacco Details:??Use: Former smoker, quit more than 30 days ago. ??Other: quit more than 10 years, smoked for three years. Electronic Cigarette/Vaping Details:??Electronic Cigarette Use: Never. ? Family History Mother: Diabetes mellitus; Heart attack; Hyperlipidemia; Hypertension Father: Diabetes mellitus; Heart attack; Hyperlipidemia; Hypertension; Polyp ? Medications Home Medications Doxycycline (doxycycline hyclate 100 mg oral capsule)?1?capsule?100?Milligram?By Mouth?2 times a day?for 14?Days Durable Medical Equipment (Pen Nahun[place], 30 G x 8 mm BD Ultra Fine II)?See Instructions?for 90?Days?use as directed for Type 2 Diabetes Mellitus Durable Medical Equipment (Pen [place], 31 G x 8 mm BD Ultra Fine III)?See Instructions?for 30?Days?use as directed for Type 2 Diabetes Mellitus Durable Medical Equipment (Freestyle Lite Test Strips)?See Instructions?for 90?Days?Usefor checking blood sugar four times daily for type 2 diabetes Ibuprofen?800?Milligram?By Mouth?3 times a day?as needed?Pain , Moderate Insulin Glargine (Lantus Solostar Pen 100 units/mL subcutaneous solution)?10?unit(s)?Subcutaneous Injection?Daily at bedtime?for 30?Days Losartan (losartan 25 mg oral tablet)?1?tab(s)?By Mouth?Daily Metformin (metFORMIN 1000 mg oral tablet)?1?tab(s)?By Mouth?2 times a day Simvastatin (simvastatin 20 mg oral tablet)?40?Milligram?2?tablet?By Mouth?Daily ? Inpatient Medications Medications (25) Active SCHEDULED: (6) ceFAZolin 1 Gm Inj (ceFAZolin Inj) ??1 Gm, IV Push, Every 8 hours Doxycycline 100 mg Tablet (Doxycycline Tablet) ??100 mg, By Mouth, 2 times a day Enoxaparin 40 mg Inj (Enoxaparin Inj) ??40 mg 0.4 mL, Subcutaneous Injection, Daily Insulin Glargine 100 units/mL Inj (Insulin Glargine Inj) ??10 units 0.1 mL, Subcutaneous Injection,Daily at bedtime Losartan 25 mg Tablet (losartan 25 mg oral tablet) ??25 mg, By Mouth, Daily Simvastatin 20 mg Tablet (simvastatin 20 mg oral tablet) ??40 mg, By Mouth, Daily CONTINUOUS: (1) Lactated Ringers (1000 mL) Cont IV 1,000 mL (LR 1,000 mL) ??1,000 mL, IV Infusion, 100 mL/hr PRN: (18) Acetaminophen 325 mg Tablet (Acetaminophen Tablet) ??650 mg, By Mouth, Every 6 hours Al hydroxide/Mg hydroxide/simethicone 200 mg-200 mg-20 mg/5 mL Susp UD (Maalox Plus Liquid) ??15 mL, By Mouth, 4 times a day Bisacodyl 10 mg Suppository (Dulcolax Supp) ??10 mg 1 supp, Rectally, Daily Calcium Carbonate 500 mg (Calcium 200 mg) Chewable Tablet (Tums 500 mg oral tablet, chewable) ??500mg 1 tablet, Chew, Every 4 hours Chloraseptic Lozenge ??1 lozenge, By Mouth, Every 3 hours Dextromethorphan-Guaifenesin 20 mg-200 mg/10 mL Liqu UD (Robitussin DM Liquid) ??10 mL, By Mouth, Every 4 hours Dextrose Inj Syringe (Dextrose 50% Inj Syringe (25Gm)) ??12.5 Gm, IV Push Slowly, Every 20 minutes Dextrose Inj Syringe (Dextrose 50% Inj Syringe (25Gm)) ??25 Gm, IV Push Slowly, Every 15 minutes Glucagon 1 mg Inj (Glucagon Inj) ??1 mg, Intramuscular, Once Glucose 40% Gel (15 Gm) (Glucose Gel) ??15 Gm, By Mouth, Every 20 minutes Glucose 40% Gel (15 Gm) (Glucose Gel) ??30 Gm, By Mouth, Every 20 minutes Insulin Lispro 100 units/mL Inj (3mL) (Insulin LISPRO Scale) ??2-7 units, Subcutaneous Injection, Every 6 hours Melatonin 3 mg Tablet (Melatonin Tablet) ??3 mg, By Mouth, Daily at bedtime OxyCODONE 5 mg IR Tablet (oxyCODONE 5 mg oral tablet) ??5 mg, By Mouth, Every 4 hours OxyCODONE 5 mg IR Tablet (oxyCODONE 5 mg oral tablet) ??10 mg, By Mouth, Every 4 hours Polyethylene Glycol 17 Gm Powder (MiraLax Powder) ??17 Gm 1 pack/packet, By Mouth, Daily Polyvinyl Alcohol 1.4% Opthalmic Solution/Artificial Tears (Artificial Tears1.4%) ??2 drops, Eyes, Both, Every 4 hours Simethicone 80 mg Chewable Tablet (simethicone 80 mg oral tablet, chewable) ??80 mg, Chew, 3 times a day ? Results Recent Labs BLOOD COUNT & DIFF WBC 14.6 k/mm3 (High)?? 02/14/2024 08:38 RBC 5.13 m/mm3 ()?? 02/14/2024 08:38 Hgb 14.7 Gm/dL ()?? 02/14/2024 08:38 Hct 44.9 % ()?? 02/14/2024 08:38 MCV 87.5 femtoliters ()?? 02/14/2024 08:38 MCH 28.7 pg ()?? 02/14/2024 08:38 MCHC 32.7 g/dL (Low)?? 02/14/2024 08:38 Platelet Count 257 k/mm3 ()?? 02/14/2024 08:38 RDW-SD 42.7 femtoliters ()?? 02/14/2024 08:38 MPV 9.5 femtoliters ()?? 02/14/2024 08:38 Nucleated RBC (Automated) 0.0 #/100 WBC'S ()?? 02/14/2024 08:38 Abs. NRBC 0.0 k/mm3 ()?? 02/14/2024 08:38 Abs. Neut 13.2 k/mm3 (High)?? 02/14/2024 08:38 Abs. Lymph 0.5 k/mm3 (Low)?? 02/14/2024 08:38 Abs. [place] 0.7 k/mm3 ()?? 02/14/2024 08:38 Abs. Eo 0.1 k/mm3 ()?? 02/14/2024 08:38 Abs. Baso 0.0 k/mm3 ()?? 02/14/2024 08:38 Neut % 90.7 % (High)?? 02/14/2024 08:38 Lymph % 3.3 % (Low)?? 02/14/2024 08:38 [place] % 4.7 % ()?? 02/14/2024 08:38 Eos % 0.5 % ()?? 02/14/2024 08:38 Baso % 0.3 % ()?? 02/14/2024 08:38 Imm Gran 0.5 % ()?? 02/14/2024 08:38 Abs. Imm Gran 0.1 k/mm3 ()?? 02/14/2024 08:38 ?? CHEM GENERAL Sodium 137 mmol/L ()?? 02/14/2024 08:38 Potassium 4.4 mmol/L ()?? 02/14/2024 10:16 Chloride 100 mmol/L ()?? 02/14/2024 08:38 Bicarbonate Level 23 mmol/L ()?? 02/14/2024 08:38 Anion Gap 14 ()?? 02/14/2024 08:38 Glucose Level 208 mg/dL (High)?? 02/14/2024 08:38 BUN 17 mg/dL ()?? 02/14/2024 08:38 Creatinine-Blood 0.9 mg/dL ()?? 02/14/2024 08:38 Estimated GFR Creatinine 100 ML/MIN/1.73 M2 ()?? 02/14/2024 08:38 Calcium 8.4 mg/dL (Low)?? 02/14/2024 08:38 Lipase 20 units/L ()?? 02/14/2024 08:38 ?? HEME OTHER Hold Blue Top SPECIMEN DISCARDED AFTER 4 HOURS. ()?? 02/14/2024 08:38 ?? MISC. CHEMISTRY Hold Wright Top SPECIMEN DISCARDED AFTER 1 WEEK ()?? 02/14/2024 08:38 ?? URINE OTHER Est Creatinine Clearance 98.39 mL/min ()?? 02/14/2024 09:21 ? Hospital Progress note * Kristen Carter RN: PERFORM, SIGN, VERIFY Event Display: Progress Note Hospital Authored Date: [id number] Patient: EDWINA PHELPS Age: 54 years Sex: Male : 1970 Associated Diagnoses: None Author: Kristen Carter RN Findings Problem Related to Alteration in Comfort : Alteration in Comfort/new 02/16/2024 12:00 EDT Alteration in Comfort Related to Injury, Surgery, Other: Closed intertrochanteric R proximal femur fx-s/p IM nailing-02/14 Goals & Outcomes: Comfort Pt will report acceptable level of comfort & pain control, Pt will state importance of adhering to pain strategy regime, Pt will demonstrate necessary skills to manage pain, Non-verbal indicators will indicate comfort/pain control Interventions Implemented: Comfort Assess pain using appropriate pain scale/tools, Assess aggravating factors & prevent them accordingly, Assess alleviating factors & promote them accordingly BH Goals/Interventions, Comfort Yes Comfort, Problem Start 02/14/2024 19:42 Reviewed plan with, Comfort Patient Patient Progression, Comfort Pt progressing according to plan Comfort, Problem Ongoing Yes . Alteration in Musculoskeletal : Alteration in Musculoskeletal Func/new 02/17/2024 5:03 EDT Alteration in Musculoskeletal Related to Fracture, Mobility, Orthopedic Procedure, Other: Closed intertrochanteric R proximal femur fx-s/p IM nailing-02/14 Goals & Outcomes, Musculoskeletal Affected extremity will maintain color/motion/sensation, Pt able to perform ADL's to best of ability, Pt demonstrates precautions/exercise/ transfers per protocol, Pt will ambulate safely with assistive device, Pt will be free from complications of immobility, Pt will demonstrate ability to participate in ADL's, Pt will report acceptable level of comfort/painrelief Interventions, Musculoskeletal Monitor patients ambulation status, monitor Color/Motion/Sensation, Assist with repositioning, Encourage deep breathing & coughing exercises, Notify MD immediately if tissue perfusion deteriorates, Obtain assistive devices as needed, Teach & Encourage use of Incentive spirometer, Teach Pt/caregiver on ADL's & adaptive equipment, Teach Pt/caregiver on exercises, Teach pt/caregiver on use of pain scale, Teach Pt/caregiver complications of immobility, Teach Pt/caregiver techniques to increase mobility, Teach Pt/caregiver on safety precautions BH Goals/Interventions, Musculoskeletal Yes Musculoskeletal, Problem Start 02/14/2024 19:42 Reviewed Plan with, Musculoskeletal Patient Patient Progression, Musculoskeletal Pt progressing according to plan . Nursing Data Vital Signs : VITAL SIGNS SECTION 02/17/2024 11:04 EDT Temperature 97 DegF Temperature Route Oral Pulse Rate 89 bpm Respiratory Rate 20 br/min Systolic Blood Pressure 102 mm Hg Diastolic Blood Pressure 57 mm Hg Blood pressure sites Arm, right Mean Arterial Pressure 72 mm Hg Pulse Pressure 45 mm Hg Oxygen Saturation 96 % Mode of Delivery (Oxygen) Room air . Evaluation P: Alteration in Musculoskeletal & Comfort I: Interventions per plan E: 54 year old male, s/p R femur fx -- IM nailing on 02/[address] Ybarra. Pt is AxOx4. VSS. Lungs dim, nonlabored breathing, denies SOB. Incentive spirometer is at bedside, encouraged patient to use 10x an hour with proper demonstration. Patient denies chest pain, numbness, tingling, and dizziness,except for baseline neuropathy. +PP, +CMS, +D/P flexion. Lovenox implemented for DVT prophylaxis. C- boots placed bilaterally. Encouraged patient to perform ankle pumps 20x an hour and gluteal squeezes frequently. DSD x3 dressing, clean, dry and intact, ordered to be changed daily and as needed. No shadowing present. 2A X walker, max assist stand and ivot from chair to bed, working with PT/OT for transfers. Icing as needed for comfort. Patient is c/o 6/10 pain, tolerating 10mg of Oxycodone Q4H prn as ordered in [facility] MAR. Tolerating a diabetic carb diet. Slight episode of nausea, zofran ordered by Kae Miller MD. Abdomen is soft and round. LBM 02/13, +flatus. Bowel regimen implemented. Voiding via urinal - CYU. +BS x4. Q6H POC checks performed, no insulin ordered or administered except for night time insulin glargine. Bilateral diabetic foot ulcers present. Wound and vascular consults completed. 2L toe and 1R toe amputated. 2L toe wound care ordered - aquagcel AG and DSD q12h changes, to be changed at 1300. 1R toe, to be cleaned with betadine and stay [employer], q12h, to be changed at 1300 today. Both feet wrapped in kerlix. CDI. Safety checks done. Bed in lowest/locked position, call regalado/b elongings within reach, patient resting comfortably. Patient needs met at this time. Plan progressing. . . Discharge Information Rehabilitation Discharge : Rehab Discharge Index 02/16/2024 8:11 EDT Comments on treatment indicated 54 yo M with PMH including recent B toe amps presenting after a fall due to dizziness resulting in R femur fracture, now s/p R femur IM nailing on 02/[address] Ybarra. B heel weight bearing with B post-op shoes (WBAT R LE from ortho perspective). Distance pt will ambulate 10 ft with RW Full chart review completed Yes Hospital course see comment Other findings see comment Plan of care PT Gait training, Transfer training, Therapeutic exercise, Functional Activities, Balance training 02/16/2024 8:08 EDT Full chart review completed Not Done: Task Duplication (Not Done) * Rajan RODRIGUEZ, Toni: PERFORM, MODIFY Event Display: Progress Note Hospital Authored Date: [id number] Patient: ??EDWINA PHELPS ? Age:??54 Years?Sex:??Male?:??1970?? Subjective POD#2 ? Patient seen and examined this AM. Notes reviewed. The patient stated that he was having some pain to the thigh but the medications seemed to be helping. He stated that his main concerns was the painand itchiness on his back from sitting/laying in bed all this time. The patient stated that he worked with PT earlier today and was currently in the recliner at his bedside. He stated that the PT went okay, discussed that he is currently PWB on bilateral LE per his vascular team. Tolerating an oraldiet well. Voiding without difficulty. Denied any recent BM, but is having flatulence. Discussed changing his dressings today, which he was agreeable to. No other orthopedic concerns. All questions asked and answered.?? Review of Systems Endorses slight nausea at times, denies any vomiting Denies any chest pain or shortness of breath Objective Vitals & Measurements T:??98.7?F?? TMIN:??97.8?F?? TMAX:??99.0?F?? HR:??97??(Peripheral)?? RR:??18?? RR:??18?? BP:??143/70?? SpO2:??98%?? Physical Exam Gen: Patient awake and alert, sitting upright in recliner, NAD RLE: Thigh dressings C/D/I ?taken down at bedside - incision well approximated without any drainage ?Thigh with moderate soft edema, mild tenderness to palpation laterally ?Calf supple/ nontender ?+DF/PF ?Palpable DP pulse ?Sensation to light touch grossly intact Lab Results Test Name Test Result Date/Time WBC 8.8 k/mm3 02/17/2024 02:03 EDT Hgb 12.1 Gm/dL 02/17/2024 02:03 EDT Hct 37.7 % 02/17/2024 02:03 EDT Platelet Count 230 k/mm3 02/17/2024 02:03 EDT Assessment/Plan 54 year old male??POD #2 s/p Right Intertan ? - OOB with PT,??PWB on bilateral LE per vascular, may WBAT on the Rt hip from an orthopedic perspective ? - Care per primary team ? - Pain control per primary team ? - Encourage IS/ deep breathing ? - DVT prophylaxis:??Lovenox?- Lovenox to continue until post-op day 28 ? - Bowel meds PRN constipation ? - Apply ice to??right thigh PRN for swelling ? - Post operative anemia ? - Likely secondary to acute blood loss from injury/ surgery ? - Dressing changed today at bedside ? - Dressing to be changed daily by nursing staff, order placed in [facility] ? - DC planning: Okay to be discharged from an orthopedic perspective ? - Dressings to be changed on a daily basis with DSD's ? - Humble to remain in place until POD#14, these may be removed at rehab or by home health aide. ? - Patient to follow-up with Dr. Ybarra at the [facility] office in 4- 6 weeks. Please call [phone] to schedule the follow-up appointment. ? - Please page [phone] with any future orthopedic questions or concerns. Medications Inpatient Acetaminophen Tablet, 650 mg, By Mouth, Every 6 hours, PRN Artificial Tears1.4%, 2 drops, Eyes, Both, Every 4 hours, PRN Bisacodyl Supp, 10 mg= 1 supp, Rectally, Daily, PRN Chloraseptic Lozenge, 1 lozenge, By Mouth, Every 3 hours, PRN cholecalciferol 1000 intl units oral tablet, 1000 International_Units, By Mouth, Daily Dextrose 50% Inj Syringe (25Gm), 12.5 Gm, IV Push Slowly, Every 20 minutes, PRN Dextrose 50% Inj Syringe (25Gm), 25 Gm, IV Push Slowly, Every 15 minutes, PRN Dulcolax Supp, 10 mg= 1 supp, Rectally, Daily, PRN Enoxaparin Inj, 40 mg= 0.4 mL, Subcutaneous Injection, Daily ferrous sulfate 325 mg oral enteric coated tablet, 325 mg, By Mouth, Daily Glucagon Inj, 1 mg, Intramuscular, Once, PRN Glucose Gel, 15 Gm, By Mouth, Every 20 minutes, PRN Glucose Gel, 30 Gm, By Mouth, Every 20 minutes, PRN Insulin Glargine Inj, 10 units= 0.1 mL, Subcutaneous Injection, Daily at bedtime Insulin LISPRO Scale, 2-7 units, Subcutaneous Injection, 3 times a day before meals, PRN losartan 25 mg oral tablet, 25 mg, By Mouth, Daily Maalox Plus Liquid, 15 mL, By Mouth, 4 times a day, PRN magnesium oxide 400 mg oral tablet, 400 mg, By Mouth, 2 times a day Melatonin Tablet, 3 mg, By Mouth, Daily at bedtime, PRN MiraLax Powder, 17 Gm= 1 pack/packet, By Mouth, Daily, PRN MOM Liquid, 30 mL, By Mouth, Daily, PRN Multivitamin Tablet, 1 tablet, By Mouth, Daily oxyCODONE 5 mg oral tablet, 5 mg, By Mouth, Every 4 hours, PRN oxyCODONE 5 mg oral tablet, 10 mg, By Mouth, Every 4 hours, PRN Robitussin DM Liquid, 10 mL, By Mouth, Every 4 hours, PRN simethicone 80 mg oral tablet, chewable, 80 mg, Chew, 3 times a day, PRN simvastatin 20 mg oral tablet, 40 mg, By Mouth, Daily Tums 500 mg oral tablet, chewable, 500 mg= 1 tablet, Chew, Every 4 hours, PRN Vitamin C Tablet, 250 mg, By Mouth, 2 times a day with meals Zofran Inj, 4 mg, IV Push, Once, PRN Home acetaminophen 325 mg oral tablet, 650 mg, By Mouth, Every 6 hours, PRN acetaminophen-oxyCODONE 325 mg-5 mg oral tablet, 1 tablet, By Mouth, Every 6 hours, PRN acetaminophen-oxyCODONE 325 mg-5 mg oral tablet, 2 tablet, By Mouth, Every 6 hours, PRN ascorbic acid 250 mg oral tablet, 250 mg, By Mouth, 2 times a day with meals cholecalciferol 1000 intl units oral tablet, By Mouth, Daily doxycycline hyclate 100 mg oral capsule, 100 mg= 1 capsule, By Mouth, 2 times a day, 1 refills ferrous sulfate 325 mg oral enteric coated tablet, 325 mg, By Mouth, Daily Freestyle Lite Test Strips, See Instructions, 2 refills Lantus Solostar Pen 100 units/mL subcutaneous solution, 10 units, Subcutaneous Injection, Daily at bedtime, 1 refills losartan 25 mg oral tablet, 1 tablet, By Mouth, Daily magnesium oxide 400 mg oral tablet, 400 mg, By Mouth, 2 times a day metFORMIN 1000 mg oral tablet, 1 tablet, By Mouth, 2 times a day Multivitamin Tablet, 1 tablet, By Mouth, Daily Pen [place], 30 G x 8 mm BD Ultra Fine II, See Instructions, 2 refills [place], 31 G x 8 mm BD Ultra Fine III, See Instructions, 5 refills simvastatin 20 mg oral tablet, 40 mg= 2 tablet, By Mouth, Daily * Nimisha Vann RN: PERFORM, SIGN, VERIFY, MODIFY, SIGN Event Display: Progress Note Hospital Authored Date: [id number] Patient: EDWINA PHELPS Age: 54 years Sex: Male : 1970 Associated Diagnoses: None Author: Nimisha Vann RN Findings Problem Related to Alteration in Musculoskeletal : Alteration in Musculoskeletal Func/new 02/17/2024 5:03 EDT Alteration in Musculoskeletal Related to Fracture, Mobility, Orthopedic Procedure, Other: Closed intertrochanteric R proximal femur fx-s/p IM nailing-02/14 Goals & Outcomes, Musculoskeletal Affected extremity will maintain color/motion/sensation, Pt able to perform ADL's to best of ability, Pt demonstrates precautions/exercise/ transfers per protocol, Pt will ambulate safely with assistive device, Pt will be free from complications of immobility, Pt will demonstrate ability to participate in ADL's, Pt will report acceptable level of comfort/painrelief Interventions, Musculoskeletal Monitor patients ambulation status, monitor Color/Motion/Sensation, Assist with repositioning, Encourage deep breathing & coughing exercises, Notify MD immediately if tissue perfusion deteriorates, Obtain assistive devices as needed, Teach & Encourage use of Incentive spirometer, Teach Pt/caregiver on ADL's & adaptive equipment, Teach Pt/caregiver on exercises, Teach pt/caregiver on use of pain scale, Teach Pt/caregiver complications of immobility, Teach Pt/caregiver techniques to increase mobility, Teach Pt/caregiver on safety precautions BH Goals/Interventions, Musculoskeletal Yes Musculoskeletal, Problem Start 02/14/2024 19:42 Reviewed Plan with, Musculoskeletal Patient Patient Progression, Musculoskeletal Pt progressing according to plan . Nursing Data Vital Signs : VITAL SIGNS SECTION 02/16/2024 23:55 EDT Early Warning Score 2.00 02/16/2024 23:55 EDT Temperature 99.0 DegF Temperature Route Oral Pulse Rate 97 bpm H Respiratory Rate 20 br/min Systolic Blood Pressure 133 mm Hg Diastolic Blood Pressure 70 mm Hg Blood pressure sites Arm, right Mean Arterial Pressure 91 mm Hg Pulse Pressure 63 mm Hg Oxygen Saturation 94 % Mode of Delivery (Oxygen) Room air 02/16/2024 22:23 EDT Respiratory Rate 18 br/min 02/16/2024 21:29 EDT Early Warning Score 0.00 02/16/2024 21:24 EDT Early Warning Score 0.00 02/16/2024 21:23 EDT Respiratory Rate 18 br/min 02/16/2024 19:36 EDT Early Warning Score 0.00 02/16/2024 19:35 EDT Temperature 98.2 DegF Temperature Route Oral Pulse Rate 99 bpm H Respiratory Rate 20 br/min Systolic Blood Pressure 152 mm Hg H Diastolic Blood Pressure 73 mm Hg Blood pressure sites Arm, right Mean Arterial Pressure 99 mm Hg Pulse Pressure 79 mm Hg Oxygen Saturation 96 % Mode of Delivery (Oxygen) Room air . Evaluation P: As per nursing care plans listed above I: See interventions listed in care plans above E: Pt is a 54 yo male, s/p IM nailing to the R femur with Dr. Ybarra on 02/14. A&Ox4, VSS, lungs clear. Pt has +D/P, +PP, +CMS but noted that he has numbess which is not new. Pt reports pain of 6-7/10, scheduled Tylenol Q6, PRN 5 mg given with moderate relief. PRN 10 mg oxy administered with adequate relief . +BS x4, abdomen soft, nontender, nondistended, last BM 02/13. Pt tolerating diabetic diet. Pt c/o nausea. Paged covering provider and made them aware, they put in a PRN order for zofran. Pt refused dose, said he was feeling better. Pt on bedrest overnight, turned and repositioned as needed for comfort. Pt voiding cyu into a urinal with no issues. DSD to the R hip C/D/I, ice in place for swelling and discomfort. Wound care to toes done per order. Pt on lovenox for DVT prophylaxis, cboots on bilaterally, patient was encouraged to use incentive spirometer, fall prevention and safety education provided, call regalado within reach, bed in low locked position. . Discharge Information Rehabilitation Discharge : Rehab Discharge Index 02/16/2024 8:11 EDT Comments on treatment indicated 54 yo M with PMH including recent B toe amps presenting after a fall due to dizziness resulting in R femur fracture, now s/p R femur IM nailing on 02/[address] Ybarra. B heel weight bearing with B post-op shoes (WBAT R LE from ortho perspective). Distance pt will ambulate 10 ft with RW Full chart review completed Yes Hospital course see comment Other findings see comment Plan of care PT Gait training, Transfer training, Therapeutic exercise, Functional Activities, Balance training 02/16/2024 8:08 EDT Full chart review completed Not Done: Task Duplication (Not Done) Consult note * Sarah Thomas RN: PERFORM, SIGN, VERIFY Event Display: Consultation Note Authored Date: [id number] Patient: EDWINA PHELPS Age: 54 years Sex: Male : 1970 Associated Diagnoses: None Author: Sarah Thomas RN History of Presenting Problem Date of Service 02/17/2024 Wound RN consult entered to assess both feet and make topical recommendations. Per brief chart review, Vascular consulted on patient yesterday 02/15 assessing bilateral feet R1 and L2 amp sites and making/placing wound care orders. Puneet Miller to make aware of above and Wound RN consult to be discontinued. Plan Time spent 0-15 minutes * Narayan BARR, Josseline Bradshaw: PERFORM, MODIFY Event Display: Consultation Note Authored Date: Patient: ??EDWINA PHELPS ? Age:??54 Years?Sex:??Male?:??1970?? Chief Complaint femur fracture Reason for Consultation Consult from: Alise Ybarra MD Consult to: Tab Black MD Consult for: bilateral toe amps History of Present Illness Edwina Phelps is a 54-year-old male with PMH including HTN, HLD, DM, diabetic foot ulcer, recent diagnosis of osteomyelitis/necrotic ulcer s/p right great toe amputation and left second toe amputation(01/04/[address] Black) obesity, depression.?? [facility] Consult placed to Vascular Surgery for wound management/weight bearing status of bilateral toe amps. Patient is currently POD 1 R femur repair with ??Amada. ?? Review of Systems General: No fevers or chills, no weight loss HEENT: No vision changes, headache or sore throat Resp: No dyspnea, cough Cardiac: no chest discomfort or palpitations Abdomen: no nausea, vomiting or diarrhea; no pain, bloating or soreness : no dysuria, changes to urination, flank or back pain Skin: s/p R1 and L2 amps MSK: RLE pain Neuro: no weakness, numbness Physical Exam Vitals & Measurements T:??98.1?F?? TMIN:??97.4?F?? TMAX:??98.1?F?? HR:??85??(Peripheral)?? RR:??18?? BP:??114/66?? SpO2:??97%?? WT:??121.8??kg?? General appearance: No apparent distress, appears stated age, well developed. Head: Normocephalic, atraumatic. Cardiac: RRR, no murmurs Respiratory: Clear to auscultation bilaterally. Abdomen: Soft, nontender, nondistended. No guarding or rebound. No palpable mass. Extremities: Able to move all extremities without difficulty. Warm. Neurologic status: Alert and oriented x 3. No focal deficits. Psych: Mood and affect normal. Vascular:??R1 amp: incision well approximated; sutures removed at bedside. No drainage or erythema.L2 amp: fibrinous wound base; no purulence or erythema. Right: BP AT/DP/PT Left: BP AT/PT; MP DP Assessment/Plan Edwina Phelps is a 54-year-old male with PMH including HTN, HLD, DM, diabetic foot ulcer, recent diagnosis of osteomyelitis/necrotic ulcer s/p right great toe amputation and left second toe amputation(01/04/[address] Black) obesity, depression.?? [facility]. Patient is currently POD 1 R femur repair with ??Ybarra. R1 amp sutures removed at bedside; L2 wound care ongoing. Patient cleared for partial weight bearing as tolerated bilaterally.??Patient can follow up outpatient with??Vascular in 1 month. ?? Recommendations: - Tight glycemic control - Cleared for partial weight bearing as tolerated - R1 wound care - betadine paint BID - L2 amp wound care - Aquacel Ag BID; cover with DSD - Remainder of care per primary team ?? Vascular Surgery signing off. Please page Vascular Surgery [place] [phone]. ?? Resident/PA/DATA MANAGEMENT SPECIALIST Attestation Case discussed with attending physician:??Dr. Black ?? Problem List/Past Medical History Ongoing Amputation of toe of left foot Balanitis Class 2 obesity with body mass index (BMI) of 37.0 to 37.9 in adult Hyperglycemia due to diabetes mellitus Hyperlipidemia Hypertension Hypokalemia Positive screening for depression on 2-item Patient Health Questionnaire (PHQ-2) Right shoulder pain Screening for prostate cancer Severe obesity (BMI 35.0-39.9) with comorbidity Status post amputation of right great toe Type 2 diabetes mellitus Procedure/Surgical History ???Treatment of intertrochanteric, peritrochanteric, or subtrochanteric femoral fracture; with intramedullary implant, with or without interlocking screws and/or cerclage (02/15/2024)???Amputation Toe (Left, Second) (01/04/2024)???Amputation Toe (Right, Great Toe) (01/04/2024)???Cholecystectomy???Knee joint operation???Wrist repair Medications Inpatient Acetaminophen Tablet, 650 mg, By Mouth, Every 6 hours, PRN Artificial Tears1.4%, 2 drops, Eyes, Both, Every 4 hours, PRN Bisacodyl Supp, 10 mg= 1 supp, Rectally, Daily, PRN Chloraseptic Lozenge, 1 lozenge, By Mouth, Every 3 hours, PRN cholecalciferol 1000 intl units oral tablet, 1000 International_Units, By Mouth, Daily Dextrose 50% Inj Syringe (25Gm), 12.5 Gm, IV Push Slowly, Every 20 minutes, PRN Dextrose 50% Inj Syringe (25Gm), 25 Gm, IV Push Slowly, Every 15 minutes, PRN Doxycycline Tablet, 100 mg, By Mouth, 2 times a day Dulcolax Supp, 10 mg= 1 supp, Rectally, Daily, PRN Enoxaparin Inj, 40 mg= 0.4 mL, Subcutaneous Injection, Daily ferrous sulfate 325 mg oral enteric coated tablet, 325 mg, By Mouth, Daily Glucagon Inj, 1 mg, Intramuscular, Once, PRN Glucose Gel, 15 Gm, By Mouth, Every 20 minutes, PRN Glucose Gel, 30 Gm, By Mouth, Every 20 minutes, PRN Insulin Glargine Inj, 10 units= 0.1 mL, Subcutaneous Injection, Daily at bedtime Insulin LISPRO Scale, 2-7 units, Subcutaneous Injection, Every 6 hours, PRN losartan 25 mg oral tablet, 25 mg, By Mouth, Daily LR 1,000 mL, 1000 mL, IV Infusion Maalox Plus Liquid, 15 mL, By Mouth, 4 times a day, PRN magnesium oxide 400 mg oral tablet, 400 mg, By Mouth, 2 times a day Melatonin Tablet, 3 mg, By Mouth, Daily at bedtime, PRN MiraLax Powder, 17 Gm= 1 pack/packet, By Mouth, Daily, PRN MOM Liquid, 30 mL, By Mouth, Daily, PRN Multivitamin Tablet, 1 tablet, By Mouth, Daily oxyCODONE 5 mg oral tablet, 5 mg, By Mouth, Every 4 hours, PRN oxyCODONE 5 mg oral tablet, 10 mg, By Mouth, Every 4 hours, PRN Robitussin DM Liquid, 10 mL, By Mouth, Every 4 hours, PRN simethicone 80 mg oral tablet, chewable, 80 mg, Chew, 3 times a day, PRN simvastatin 20 mg oral tablet, 40 mg, By Mouth, Daily Tums 500 mg oral tablet, chewable, 500 mg= 1 tablet, Chew, Every 4 hours, PRN Vitamin C Tablet, 250 mg, By Mouth, 2 times a day with meals Home doxycycline hyclate 100 mg oral capsule, 100 mg= 1 capsule, By Mouth, 2 times a day, 1 refills Freestyle Lite Test Strips, See Instructions, 2 refills Ibuprofen, 800 mg, By Mouth, 3 times a day, PRN Lantus Solostar Pen 100 units/mL subcutaneous solution, 10 units, Subcutaneous Injection, Daily at bedtime, 1 refills losartan 25 mg oral tablet, 1 tablet, By Mouth, Daily metFORMIN 1000 mg oral tablet, 1 tablet, By Mouth, 2 times a day Pen [place], 30 G x 8 mm BD Ultra Fine II, See Instructions, 2 refills Pen [place], 31 G x 8 mm BD Ultra Fine III, See Instructions, 5 refills simvastatin 20 mg oral tablet, 40 mg= 2 tablet, By Mouth, Daily Allergies codeine naproxen Social History Alcohol Frequency: once or twice a year. Electronic Cigarette/Vaping Electronic Cigarette Use: Never. Employment/School Status: Employed. Other: [employer]. Exercise Regular exercise: Yes. Exercise type: Walking. Home/Environment Living situation: Home/Independent. Lives with: Children, Spouse, grandchild. Nutrition/Health Diet: Regular. Other: admits to eating unhealthy. Sexual Sexually involved in last 6 months: No. Substance Abuse Use: Never. Tobacco Use: Former smoker, quit more than 30 days ago. Other: quit more than 10 years, smoked for three years. Family History Diabetes mellitus: Mother and Father. Heart attack: Mother and Father. Hyperlipidemia: Mother and Father. Hypertension: Mother and Father. Polyp: Father. Immunizations Vaccine Date Status SARS-CoV-2 (COVID-19) mRNA-1273 vaccine 11/18/2021 Recorded SARS-CoV-2 (COVID-19) mRNA-1273 vaccine 10/07/2021 Recorded tetanus/diphtheria/pertussis, acel(Tdap) 10/11/2014 Recorded * Alexandra Sanchez: PERFORM, SIGN, VERIFY Event Display: Consultation Note Authored Date: [id number] Patient: EDWINA PHELPS Age: 54 years Sex: Male : 1970 Associated Diagnoses: None Author: Katiuska RODRIGUEZ, Alexandra Mabry is a 54-year-old male who presented to [facility] after sustaining injury to the right hip froma fall at home. Radiographic evaluation revealed right peritrochanteric hip fracture. These generally get treated with surgical fixation. [facility] further management secondary to multiple comorbidities. Upon arrival to [facility] [place] [phone]. Note * Elizabeth Quach RN: PERFORM Event Display: Discharge/Transfer Note Hospital Authored Date: [id number] Nursing Discharge Note Entered On: 02/17/2024 16:49 EDT Performed On: 02/17/2024 16:48 EDT by Elizabeth Quach RN Nursing Discharge Note 2 Discharge Time : 02/17/2024 16:45 EDT Discharge Level of Care at Discharge : Inpatient Rehab Facility/Unit Discharge Nursing Homes/Rehab Facilities : [facility] Patient Left Unit Via : Ambulance Patient Accompanied Off Unit with : Ambulance/[facility] Personnel Handover Given to Transport Personnel : Yes DC Instructions Provided & Signed by Pt : Yes Patient Understands D/C Instructions : Yes Patient Instructions Discharge Signed : Yes Did Pt have Specialty Bed or Wound Vac : No Elizabeth Quach RN - 02/17/2024 16:48 EDT * Kae Miller MD: PERFORM Event Display: Discharge/Transfer Note Hospital Authored Date: [id number] Patient: ??EDWINA PHELPS ? Age:??54 Years?Sex:??Male?:??1970?? Patient Information Discharge Location: [facility] Primary Care Physician: Larisa Truong NP Admit Date/Time: 02/14/24 18:22 Discharge Disposition Discharge Disposition: [facility] Facility[facility]Rehab Discharge Diagnosis Hip fracture (S72.009A) Fall at home (W19.XXXA) Syncope (R55) Diarrhea (R19.7) Gastroenteritis (K52.9) HTN (hypertension) (I10) HLD (hyperlipidemia) (E78.5) Diabetes (E11.9) Diabetic foot ulcer (E11.621) Osteomyelitis (M86.9) _ Discharge Medications Acetaminophen (acetaminophen 325 mg oral tablet)?650?Milligram?By Mouth?Every 6 hours?as needed?Pain , Mild Ascorbic Acid (ascorbic acid 250 mg oral tablet)?250?Milligram?By Mouth?2 times a day with meals Bisacodyl (bisacodyl 10 mg rectal suppository)?1?suppository(ies)?10?Milligram?Rectal ly?Daily?as needed?Constipation Cholecalciferol (cholecalciferol 1000 intl units oral tablet)?By Mouth?Daily Doxycycline (doxycycline hyclate 100 mg oral capsule)?1?capsule?100?Milligram?By Mouth?2 times a day?for 14?Days Durable Medical Equipment ([place], 30 G x 8 mm BD Ultra Fine II)?See Instructions?for 90?Days?use as directed for Type 2 Diabetes Mellitus Durable Medical Equipment ([place], 31 G x 8 mm BD Ultra Fine III)?See Instructions?for 30?Days?use as directed for Type 2 Diabetes Mellitus Durable Medical Equipment (Freestyle Lite Test Strips)?See Instructions?for 90?Days?Usefor checking blood sugar four times daily for type 2 diabetes Enoxaparin?0.4?Milliliter?40?Milligram?Subcutaneous Injection?Daily?Until 03/14/2024 Ferrous Sulfate (ferrous sulfate 325 mg oral enteric coated tablet)?325?Milligram?By Mouth?Daily Insulin Glargine (Lantus Solostar Pen 100 units/mL subcutaneous solution)?10?unit(s)?Subcutaneous Injection?Daily at bedtime?for 30?Days Losartan (losartan 25 mg oral tablet)?1?tab(s)?By Mouth?Daily Magnesium Oxide (magnesium oxide 400 mg oral tablet)?400?Milligram?By Mouth?2 times a day Metformin (metFORMIN 1000 mg oral tablet)?1?tab(s)?By Mouth?2 times a day Multivitamin (Multivitamin Tablet)?1?tab(s)?By Mouth?Daily Oxycodone / Acetaminophen (acetaminophen-oxyCODONE 325 mg-5 mg oral tablet)?1?tab(s)?By Mouth?Every 6 hours?as needed?for 3?Days?Pain , Moderate Oxycodone / Acetaminophen (acetaminophen-oxyCODONE 325 mg-5 mg oral tablet)?2?tab(s)?By Mouth?Every 6 hours?as needed?for 3?Days?Pain , Severe Polyethylene Glycol 3350 (MiraLax Powder)?1?pack/packet?17?gram?By Mouth?Daily?as needed?Constipation Simvastatin (simvastatin 20 mg oral tablet)?40?Milligram?2?tablet?By Mouth?Daily ? Medications Started Lovenox once a day until 03/14/24 Multivitamin iron tablets vitamin C vitamin D magnesium As needed miralax??and suppositories for constipation As needed Percocet 325-5mg every 6 hours for moderate pain?? As needed Percocet 326-10mg every 6 hours for severe pain As needed Tylenol 650mg every 6 hours for mild pain?? Medications Discontinued none Doses Changed none Allergies Allergies ?(Active and Proposed Allergies Only) codeine? (Severity: Unknown severity, Onset: Unknown) ?Comments: Pt states this medication makes him dizzy . naproxen? (Severity: Unknown severity, Onset: Unknown) ? Future Appointments 2023 3:00 PM EDT ?? With: Michael BARR, Sandra Contreras Where: [facility] [address] [address]- Status: Pending Hospital Course Assessment: 54-year-old male with PMH including HTN, HLD, DM, diabetic foot ulcer, recent diagnosisof osteomyelitis/necrotic ulcer s/p right great toe amputation and left second toe amputation, obesity, depression. Patient was transferred to [facility] from [facility] for further management of right femoral fracture. ?? Hip fracture (S72.009A): s/p right intramedullary implant 02/14 Hypoxia: resolved quickly, possibly from atelectasis Fall at home has led to acute nondisplaced intertrochanteric right femoral fracture. Ortho following - Pain control with PRN oxycodone 5 and 10 mg - DVT prophylaxis lovenox x 28 days post op - PT recommends acute rehab, pt agrees ?? Diabetic foot ulcer (E11.621):?s/p right great toe amputation and left second toe amputationn ?? History Osteomyelitis (M86.9): Patient is on doxycycline which he finished 14 days while in the hospital Wound care consult appreciated Vascular consult appreciated, partial weight bearing allowed ?? Diarrhea (R19.7): resolved Gastroenteritis (K52.9): . Multiple episodes of diarrhea since last night, 1 episode of vomiting, no bleeding. No abdominal pain, no fever. Patient says that he had some hamburger prior to this. Multiple family numbers also have similar symptoms. Seems to be viral gastroenteritis. Symptoms have resolved, no further diarrhea for about 7 hours. Abdomen is benign, nontender. No further workup necessary unless return of symptoms. ? Fall at home (W19.XXXA): . Syncope (R55): . Patient said that he felt dizzy, lightheaded when standing oxygen the bathroom and then fell down. This likely orthostatic due to low blood pressure/low volume from multiple episodes of diarrhea earlier in the night. Differentials would be vasovagal from GI symptoms, arrhythmia, less likely ischemia, did not have any chest pain. EKG nonischemic. Troponin neg x2. ? QT prolongation: EKG qtc 499 Avoid QT prolonging medications. ?? Diabetes (E11.9): . Hold oral medications. Lantus 10 units at night. POC glucose and SSI using DATA MANAGEMENT SPECIALIST protocol. ? HLD (hyperlipidemia) (E78.5): . Continue simvastatin. ?? HTN (hypertension) (I10): . Continue losartan. ?? Objective ??Patient's pain is improving with current regimen Worked with PT and now in recliner. ? Vital Signs?? Temperature: 97 DegF (02/17/24 11:04:00) Temperature Route: Oral (02/17/24 11:04:00) Pulse Rate: 89 bpm (02/17/24 11:04:00) Respiratory Rate: 16 br/min (02/17/24 12:48:00) Systolic Blood Pressure: 102 mm Hg (02/17/24 11:04:00) Diastolic Blood Pressure: 57 mm Hg (02/17/24 11:04:00) Blood pressure sites: Arm, right (02/17/24 11:04:00) Mean Arterial Pressure: 72 mm Hg (02/17/24 11:04:00) Pulse Pressure: 45 mm Hg (02/17/24 11:04:00) Oxygen Saturation: 96 % (02/17/24 11:04:00) Mode of Delivery (Oxygen): Room air (02/17/24 11:04:00) Early Warning Score: 2 (02/17/24 12:48:48) ? . Physical Exam ?? Constitutional: Alert, in no distress. Oriented??x 3.?? Respiratory: Clear lungs, no wheezing. No accessory muscle use Cardiovascular: S1 S2 regular. No murmurs Gastrointestinal: Abdomen soft, no abdominal tenderness, non-distended. Normal bowel sounds.?? Neurologic: Moving all extremities spontaneously. Psychiatric: Normal mood and affect Extremities: No lower extremity??edema. R hip tender and limited ROM?? Surgical Procedures Intramedullary Nailing Femur Intermedull 02/15/2024 15:39 Consultants Ortho Follow-Up Appointments Added Follow Up ?Time Frame ?Comments Amada SEQUEIRA, Armando?4 to 5 weeks?Or another provider in the clinic Larisa Truong NP?2 to 5 weeks Patient Instructions Please remove yvette 2 weeks post op (around week of january 28; may be removed at rehab or by home health aide.) Contact [facility] with wound redness, drainage, increased pain, falls, change in alignment for a sooner follow up visit. Contact [facility] to make an appointment in 4 weeks.? You finished up 14 days of doxycycline while in the??hospital ?? Follow up with vascular surgeon, orthopedic surgeon, and primary care ?? New medications: Lovenox once a day to prevent blood clots post surgery, until 03/14/24 Vitamins: Multivitamin, iron tablets, vitamin C, vitamin D, magnesium As needed miralax??and suppositories for constipation As needed Percocet 325-5mg every 6 hours for moderate pain?? As needed Percocet 326-10mg every 6 hours for severe pain As needed Tylenol 650mg every 6 hours for mild pain?? Do not exceed over 3000mg over acetaminophen/tylenol??(Of note, percocet??has 325mg of tylenol inside) Post Discharge Care Activity: ??OOB as Nikia Weight Bearing as Tolerated Operative rest foot flat on floor, NO HOPPING!!!! self limit as needed for pain\ r ?? Vascular surgery(Dr. Black) will dictate weightbearing on bilateral feet, now 4 weeks postop. ?? Wound Care: ??Wound Site: Hip Dressing: Dry Sterile Dressing Daily for Other Yes. Wound Site: R1 amp Betadine paint BID; may leave open to air Every 12 hours Yes Wound Site: L2 amp Aquacel Ag BID; cover with DSD. Change PRN Every 12 hours Yes Wound Site: Right thigh Daily DSD changes to surgical site Daily Yes ?? Code Status: ??Full Resuscitation ?? Condition: ??Good ?? Prognosis: ??Good ?? Results Discharge Labs BLOOD COUNT & DIFF WBC 8.8 k/mm3 ()?? 02/17/2024 02:03 RBC 4.32 m/mm3 (Low)?? 02/17/2024 02:03 Hgb 12.1 Gm/dL (Low)?? 02/17/2024 02:03 Hct 37.7 % (Low)?? 02/17/2024 02:03 MCV 87.3 femtoliters ()?? 02/17/2024 02:03 MCH 28.0 pg ()?? 02/17/2024 02:03 MCHC 32.1 g/dL (Low)?? 02/17/2024 02:03 Platelet Count 230 k/mm3 ()?? 02/17/2024 02:03 RDW-SD 42.8 femtoliters ()?? 02/17/2024 02:03 MPV 9.1 femtoliters (Low)?? 02/17/2024 02:03 Nucleated RBC (Automated) 0.0 #/100 WBC'S ()?? 02/17/2024 02:03 Abs. NRBC 0.0 k/mm3 ()?? 02/17/2024 02:03 Abs. Neut 5.2 k/mm3 ()?? 02/15/2024 08:09 Abs. Lymph 1.0 k/mm3 ()?? 02/15/2024 08:09 Abs. [place] 0.8 k/mm3 ()?? 02/15/2024 08:09 Abs. Eo 0.1 k/mm3 ()?? 02/15/2024 08:09 Abs. Baso 0.0 k/mm3 ()?? 02/15/2024 08:09 Neut % 73.4 % ()?? 02/15/2024 08:09 Lymph % 13.5 % (Low)?? 02/15/2024 08:09 [place] % 11.1 % (High)?? 02/15/2024 08:09 Eos % 1.3 % ()?? 02/15/2024 08:09 Baso % 0.3 % ()?? 02/15/2024 08:09 Imm Gran 0.4 % ()?? 02/15/2024 08:09 Abs. Imm Gran 0.0 k/mm3 ()?? 02/15/2024 08:09 ?? CARDIAC High Sensitivity Troponin (HSTnT) 18 ng/L ()?? 02/15/2024 00:52 ? CHEM GENERAL Sodium 136 mmol/L ()?? 02/16/2024 00:52 Potassium 3.7 mmol/L ()?? 02/16/2024 00:52 Chloride 100 mmol/L ()?? 02/16/2024 00:52 Bicarbonate Level 28 mmol/L ()?? 02/16/2024 00:52 Anion Gap 8 ()?? 02/16/2024 00:52 Glucose Level 172 mg/dL (High)?? 02/16/2024 00:52 Glucose, POC 176 mg/dL (High)?? 02/17/2024 11:42 BUN 10 mg/dL ()?? 02/16/2024 00:52 Creatinine-Blood 0.9 mg/dL ()?? 02/16/2024 00:52 Estimated GFR Creatinine 101 ML/MIN/1.73 M2 ()?? 02/16/2024 00:52 Calcium 7.5 mg/dL (Low)?? 02/16/2024 00:52 Phosphorus 2.6 mg/dL ()?? 02/16/2024 00:52 Magnesium 1.4 mg/dL (Low)?? 02/16/2024 00:52 Albumin 3.0 Gm/dL (Low)?? 02/16/2024 00:52 ?? MISC. CHEMISTRY Hold Gel Top SPECIMEN DISCARDED AFTER 1 WEEK ()?? 02/17/2024 02:03 ? URINE OTHER Est Creatinine Clearance 97.61 mL/min ()?? 02/16/2024 02:21 ? 35 minutes spent on discharge * Beny RUBALCAVA, Teena Barrientos: PERFORM, SIGN, VERIFY Event Display: Case Management Discharge Plan Authored Date: [id number] Patient: EDWINA PHELPS Age: 54 years Sex: Male : 1970 Associated Diagnoses: None Author: Teena Swan RN Discharge Plan Case Management Discharge Plan : Case Management Discharge Plan Data 02/17/2024 12:19 EDT Discharge Level of Care at Discharge Inpatient Rehab Facility/Unit Discharge Nursing Homes/Rehab Facilities [facility] Discharge Transportation Arranged [facility] [address] [place] [address] Discharge Arranged Transport Date/Time 02/17/2024 15:00 Mode of Transportation Arranged Ambulance Service Categories #1 Occupational Therapy, Physical Therapy, [facility] Service Start Date and Time #1 02/17/2024 15:00 Service Comments #1 You are going to rehab today. * Elizabeth Quach RN: PERFORM Event Display: Patient Education/Instruction Authored Date: [id number] Inpatient Adult Discharge Instructions. [address] [address] Name: EDWINA PHELPS : 1970?? Visit: 02/14/2024 18:22?? Current Date: 02/17/2024 16:21 ?? Account: [id number]?? Inpatient Adult Discharge Instructions We would like to thank you for allowing us to assist you with your healthcare needs. The following includes patient education materials and information regarding your injury/illness. Our entire staffstrives to provide an excellent experience for our patients and their families. PLEASE ENSURE YOU FOLLOW-UP PER THE INSTRUCTIONS BELOW! ?? YOUR OPINION IS IMPORTANT TO US! Please complete the survey you may receive by mail or email. Your feedback will be used to make improvements to the healthcare experiences of our patients and their families. Surveys are administered by [employer] ?? If further treatment with your primary care physician or another doctor is recommended, it is important for you to keep the appointment. Call your primary care physician or return to the Emergency Department immediately if your condition worsens, fails to improve, or new symptoms develop. If you need to find a doctor, you can call [facility] for a referral at [phone] or toll free at [phone] ([phone]) or log in to [email or web address].. ?? [facility], in keeping with [facility] guidance, no longer requires face masks for [...] medical provider or home test kit. ?? You can view and manage your care through the patient portal or by using a health care yury of your choosing. [facility] is a website that allows you to securely view your medical information including your hospital discharge summary, office visit summaries, medications and follow-up visits. You can also request appointments, renew medications, and request access to your medical information using a health care yury of your choosing, or just ask a question. You can enroll at [email or web address] or register during your next office visit. You have been discharged from [facility], Patient Care Unit: S3??. If you have any questions regarding these instructions, including results of studies pending, afteryou leave, please call us and we will be happy to assist you 13/06. [facility] Your Care Team Attending Physician Kae Miller MD?? Consulting Providers Kae Miller MD?? Discharging Providers Kae Miller MD Your Diagnosis Closed 2-part intertrochanteric fracture of proximal end of right femur Diabetes Diabetic foot ulcer Diarrhea Fall at home Gastroenteritis Hip fracture HLD (hyperlipidemia) HTN (hypertension) Osteomyelitis Osteoporotic fracture of right hip Syncope Tests Performed Below is a partial list of the tests performed during your hospitalization. You may have had other tests and procedures not included in this list. Please discuss all test results with your provider. ALBUMIN Basic Metabolic Panel BUN CBC CBC w/ Differential Creatinine Electrolytes Glucose Level GLUCOSE POC HOLD GEL TUBE Magnesium Level Phosphorus Level Troponin T, High Sensitivity CXR Portable XR C-Arm < 1 Hour XR Hip Comp 2 Views Right Add On Lab Order?? Primary Care Provider Dionne BARR, Larisa? Advance Directive Health Care Proxy on File Yes - Health Care Proxy Discharge Vitals Temperature: 97.5 DegF Height: 180.34 cm Pulse Rate: 88 bpm Weight: 121.8 kg Respiratory Rate: 18 br/min Body Mass Index:??37.45 kg/m2??Critical Systolic Blood Pressure: 125 mm Hg Body surface area: 2.47 Diastolic Blood Pressure: 60 mm Hg ?? Oxygen Saturation: 95 % ?? Studies Pending All studies ordered during this hospital stay have been completed unless listed below. Please discuss all pending results with your provider listed above in these instructions. ?? Add On Lab Order?? What to do next Instructions From Your Doctor Please remove yvette 2 weeks post op (around week of january 28; may be removed at rehab or by home health aide.) Contact [facility] with wound redness, drainage, increased pain, falls, change in alignment for a sooner follow up visit. Contact [facility] to make an appointment in 4 weeks.? You finished up 14 days of doxycycline while in the??hospital ?? Follow up with vascular surgeon, orthopedic surgeon, and primary care ?? New medications: Lovenox once a day to prevent blood clots post surgery, until 03/14/24 Vitamins: Multivitamin, iron tablets, vitamin C, vitamin D, magnesium As needed miralax??and suppositories for constipation As needed Percocet 325-5mg every 6 hours for moderate pain?? As needed Percocet 326-10mg every 6 hours for severe pain As needed Tylenol 650mg every 6 hours for mild pain?? Do not exceed over 3000mg over acetaminophen/tylenol??(Of note, percocet??has 325mg of tylenol inside) ?? Orders??:OOB as Nikia ??Weight Bearing as Tolerated ??Operative ??rest foot flat on floor, NO HOPPING!!!! self limit as needed for painVascular surgery(Dr. Black) will dictate weightbearing on bilateral feet, now 4 weeks postop. Care:Wound Site: Hip Dressing: Dry Sterile Dressing ??Daily for Other ??Yes. Wound Site: R1 amp Betadine paint BID; may leave open to air Every 12 hours Yes Wound Site: L2amp Aquacel Ag BID; cover with DSD. Change PRN Every 12 hours Yes Wound Site: Right thigh Daily DSDchanges to surgical site Daily Yes Status: ??Full Resuscitation :Good :Good? 02/17/24 13:29:00 EDT?? Prescriptions??, ??02/17/24 13:29:00 EDT?? Scheduled Follow-Up Appointments 2023 3:00 PM EDT ?? With: Michael BARR, Sandra Contreras Where: [facility] [address] [place] [address]- Status: Pending You Need to Schedule the Following Appointments Follow Up with??Armando Ybarra MD When:??Within 4 to 5 weeks Why: Or another provider in the clinic Where: [address] [facility] [facility], [address] [facility] [place] [address]- Follow Up with??Larisa Truong NP When:??Within 2 to 5 weeks Where: ?? Discharge Medications EDWINA PHELPS :1970 Visit Date:02/14/2024 Medications: Please continue your medications until treatment is completed or stopped by your provider. Medications not listed below should be discontinued. Discuss any questions related to medications with your provider. What How Much When Instructions Next Dose New Acetaminophen (acetaminophen 325 mg oral tablet) 650 Milligram Oral Every 6 hours as needed for Pain , Mild as needed New Ascorbic Acid (ascorbic acid 250 mg oral tablet) 250 Milligram Oral Two times a day with meals with meals New Bisacodyl (bisacodyl 10 mg rectal suppository) 1 suppository(ies) Per rectum Daily as needed for Constipation as needed New Cholecalciferol (cholecalciferol 1000 intl units oral tablet) Oral Daily 02/17 AM New Enoxaparin 40 Milligram Subcutaneous Injection Daily Until 2023 ?? 3 AM New Ferrous Sulfate (ferrous sulfate 325 mg oral enteric coated tablet) 325 Milligram Oral Daily 02/17 AM New Magnesium Oxide (magnesium oxide 400 mg oral tablet) 400 Milligram Oral Twice a day 02/16 PM New Multivitamin (Multivitamin Tablet) 1 tab(s) Oral Daily 02/17 AM New Oxycodone / Acetaminophen (acetaminophen-oxyCODONE 325 mg-5 mg oral tablet) 1 tab(s) Oral Every 6 hours as needed for Pain , Moderate Duration: 3 Days Printed Prescription as needed New Oxycodone / Acetaminophen (acetaminophen-oxyCODONE 325 mg-5 mg oral tablet) 2 tab(s) Oral Every 6 hours as needed for Pain , Severe Duration: 3 Days Printed Prescription as needed last dose 1245 New Polyethylene Glycol 3350 (MiraLax Powder) 17 gram Oral Daily as needed for Constipation as needed Unchanged Doxycycline (doxycycline hyclate 100 mg oral capsule) 1 capsule Oral Twice a day Duration: 14 Days 02/17 PM Unchanged Insulin Glargine (Lantus Solostar Pen 100 units/ mL subcutaneous solution) 10 unit(s) Subcutaneous Injection Daily at Bedtime Duration: 30 Days 02/16 Bedtime Unchanged Losartan (losartan 25 mg oral tablet) 1 tab(s) Oral Daily 02/17 AM Unchanged Metformin (metFORMIN 1000 mg oral tablet) 1 tab(s) Oral Twice a day 02/16 PM Unchanged Simvastatin (simvastatin 20 mg oral tablet) 2 tab(s) Oral Daily 02/17 AM ?? What How Much When Comments Stop Taking Ibuprofen 800 Milligram Oral 3 times a day as needed for Pain , Moderate Prescription Given During Visit Oxycodone / Acetaminophen (acetaminophen-oxyCODONE 325 mg-5 mg oral tablet) - 2 tablet, By Mouth, Every 6 hours, # 24 tablet, 0 Refills?? Oxycodone / Acetaminophen (acetaminophen-oxyCODONE 325 mg-5 mg oral tablet) - 1 tablet, By Mouth, Every 6 hours, # 12 tablet, 0 Refills?? Laboratory Results Below is a partial list of the most recent Laboratory test results done prior to this discharge. You may have had other tests and procedures not included in this list. Please discuss all test resultswith your provider. Est Creatinine Clearance - 97.61 mL/min (02/16/2024) ALBUMIN (02/16/2024) ???Albumin - 3.0 Gm/dL Basic Metabolic Panel (02/16/2024) ???Sodium - 136 mmol/L???Potassium - 3.7 mmol/L???Chloride - 100 mmol/L???Bicarbonate Level - 28 mmol/L???Anion Gap - 8???Glucose Level - 172 mg/dL???BUN - 10 mg/dL???Creatinine-Blood - 0.9 mg/dL???Estimated GFR Creatinine - 101 ML/MIN/1.73 M2???Calcium - 7.5 mg/dL BUN (02/15/2024) ???BUN - 14 mg/dL CBC (02/17/2024) ???WBC - 8.8 k/mm3???RBC - 4.32 m/mm3???Hgb - 12.1 Gm/dL???Hct - 37.7 %???MCV - 87.3 femtoliters???MCH - 28.0 pg???MCHC - 32.1 g/dL???Platelet Count - 230 k/mm3???RDW-SD - 42.8 femtoliters???MPV - 9.1 femtoliters???Nucleated RBC (Automated) - 0.0 #/100 WBC'S???Abs. NRBC - 0.0 k/mm3 CBC w/ Differential (02/15/2024) ???WBC - 7.1 k/mm3???RBC - 4.34 m/mm3???Hgb - 12.2 Gm/dL???Hct - 37.5 %???MCV - 86.4 femtoliters???MCH - 28.1 pg???MCHC - 32.5 g/dL???Platelet Count - 204 k/mm3???RDW-SD - 43.8 femtoliters???MPV - 9.0 femtoliters???Nucleated RBC (Automated) - 0.0 #/100 WBC'S???Abs. NRBC - 0.0 k/mm3???Abs. Neut - 5.2 k/mm3???Abs. Lymph - 1.0 k/mm3???Abs. [place] - 0.8 k/mm3???Abs. Eo - 0.1 k/mm3???Abs. Baso - 0.0 k/mm3???Neut % - 73.4 %???Lymph % - 13.5 %???[place] % - 11.1 %???Eos % - 1.3 %???Baso % - 0.3 %???Imm Gran - 0.4 %???Abs. Imm Gran - 0.0 k/mm3 Creatinine (02/15/2024) ???Creatinine-Blood - 0.8 mg/dL???Estimated GFR Creatinine - 103 ML/MIN/1.73 M2 Electrolytes (02/15/2024) ???Sodium - 138 mmol/L???Potassium - 3.8 mmol/L???Chloride - 104 mmol/L???Bicarbonate Level - 23 mmol/L???Anion Gap - 11 Glucose Level (02/15/2024) ???Glucose Level - 159 mg/dL GLUCOSE POC (02/17/2024) ???Glucose, POC - 176 mg/dL HOLD GEL TUBE (02/17/2024) ???Hold Gel Top - SPECIMEN DISCARDED AFTER 1 WEEK Magnesium Level (02/16/2024) ???Magnesium - 1.4 mg/dL Phosphorus Level (02/16/2024) ???Phosphorus - 2.6 mg/dL Troponin T, High Sensitivity (02/15/2024) ???High Sensitivity Troponin (HSTnT) - 18 ng/L Allergies (NKA means No Known Allergies) codeine naproxen Problems Active Problems??(13) Amputation of toe of left foot?? Balanitis?? Class 2 obesity with body mass index (BMI) of 37.0 to 37.9 in adult?? Hyperglycemia due to diabetes mellitus?? Hyperlipidemia?? Hypertension?? Hypokalemia?? Positive screening for depression on 2-item Patient Health Questionnaire (PHQ-2)?? Right shoulder pain?? Screening for prostate cancer?? Severe obesity (BMI 35.0-39.9) with comorbidity?? Status post amputation of right great toe?? Type 2 diabetes mellitus?? Education Materials Below is the list of Educational Leaflet Providered with your Discharge Instructions. Valuables and Belongings I fully understand and agree that [facility] accepts no responsibility for all my personal property including clothing, toilet articles, radios, jewelry, dentures, hearing aids, rings, money, or any other property that is in my possession or is brought to me after admission. I understand certain valuables may be placed in a hospital safe for a short period of time. I understand that the hospital is not liable for loss or damage due to accident, fire, or other natural occurrence while said property is in the safe. I accept full responsibility for any personal property that I keep with me, and will not hold the hospital responsible in case of loss or disappearance. I acknowledge that i have been encouraged to send valuables and belongings home. ?? Review of Valuable and Belonging List: With patient, With family Possessions released to: patient did not arrive to pre-op with any valuables or belongings Date for Pt to Sign Valuables/Belongings: 02/17/24 14:26:00 ?? Other Discharge Information ? Case Management Discharge Plan?? Discharge Plan?? Discharge Agency Information?? Discharge Level of Care at Discharge: Inpatient Rehab Facility/Unit Service Start Date and Time #1: 02/17/24 15:00:00 Discharge Transportation Arranged: [facility] [address] [facility] ??[phone] Service Categories #1: Occupational Therapy, Physical Therapy, [facility] Mode of Transportation Arranged: Ambulance Service Comments #1: You are going to rehab today. Discharge Arranged Transport Date/Time: 02/17/24 15:00:00 ?? Discharge Nursing Homes/Rehab Facilities: [facility] ??[facility] ? Pulmonary Rehab Status?? Pulmonary Rehab Discharge Status?? Respiratory Rate: 18 br/min ? Common Emergency Awareness Tips IS IT A [...] are strongly encouraged to quit. Please call [facility] HeyAnita at [phone] or [phone] ([phone]) or log in to [email or web address] for referrals to smoking cessation programs. ?? 321 Suicide & Crisis Lifeline is available 13/06 if you or someone you know needs to find a reason to keep living. By calling 898 you'll be connected to a skilled, trained counselor at a crisis center in your area. INPATIENT DISCHARGE INSTRUCTIONS SIGNATURE PAGE EDWINA PHELPS Location:[facility] Registration Date and Time:02/14/2024 18:22 EDT Primary Care Physician: Larisa Truong NP, Attending Physician: Kae Miller MD, I EDWINA PHELPS, have received the above patient education materials/instructions and have verbalized understanding. If ambulance or transport services are being used I further acknowledge being given a choice of service. ?? If you need to contact me, please call me at this number: . Patient/Air Conditioning Equipment Mechanic Name: Patient/Air Conditioning Equipment Mechanic Signature: Relationship to Patient: Witness Name/Signature: Date: Patient Care team information Care Team Personnel Name: Beverly Elam RN Position: S RN Member Role: Primary Care Nurse Name: Tita Conrad RN Position: S RN Member Role: Primary Care Nurse Name: Aditi Plascencia Position: S RN Supv Member Role: Primary Care Nurse Name: Larisa Truong NP Position: [facility] PCO Associate Professional Member Role: PCP Address: Address: [address] [place] [id number] Name: Ronda Madison RN Position: S RN Member Role: Primary Care Nurse Care Team Related Persons Name: ASHA PHELPS Name: RAMESH PHELPS Address: home [address] [place] [address] Name: HAJA PHELPS Address: home [address] [place] [address]
--- OUTSIDE RECORDS SUMMARY | 2024-07-15 19:03 | XMS_ITS | Continuity of Care Document ---
Author Organization [facility] Adult Address [address] [place] [address]- Care Team Providers Care Waistband Setter Lockstitch Name Role Phone Terrence BARR, Larisa Loyd Primary Care Physician [phone] Encounter [facility] Date(s): 07/29/23 - 08/28/23 [facility] Adult [address] [place] [address]- Allergies, Adverse Reactions, Alerts Substance Reaction Severity [...] sugar once daily for type 2 diabetes, 06/24/23 12:53:00 EDT, Supply, 180, cm, 06/24/23 11:02:00 EDT, Height,118, kg, 03/26/23 17:27:00 EDT, Dry Weight Start Date: 06/24/23 Status: Ordered Freestyle Lite Test Strips See [...] 06/24/23 12:52:00 EDT, Route to Pharmacy Electronically, [facility] #[id number], 180, cm, 06/24/23 11:02:00 EDT, Height, 118, kg, 03/26/23 17:27:00 EDT, Dry W... Start Date: 06/24/23 Status: Ordered losartan 25 mg oral tablet 1 tablet, By Mouth, Daily, # 90 tablet, 2 Refills, Maintenance, 06/24/23 12:52:00 EDT, [facility] #[id number], 180, cm, 06/24/23 11:02:00 EDT, Height, 118, kg, 03/26/23 17:27:00 EDT, Dry Weight Start Date: 06/24/23 Status: Ordered metFORMIN 1000 mg oral tablet 1 tablet = 1,000 mg, By Mouth, 2 times a day, # 180 tablet, 2 Refills, Maintenance, 06/24/23 12:52:00 EDT, Tablet, [facility] #[id number], Partial fill upon patient request if the prescription isfor a schedule II opioid drug., 180, cm, 06/24/23 1... Start Date: 06/24/23 Stop Date: 03/20/24 Status: Ordered Ozempic 2 mg/1.5 mL (1 mg dose) subcutaneous solution = 1 mg, Subcutaneous Infusion, Every 7 days, # 3 mL, 0 Refills, Maintenance, 08/01/23 9:08:00 EDT, [facility] #[id number], Partial fill upon patient request if the prescription is for a schedule II opioid drug., 1 mg Subcutaneous Infusion Every 7... Start Date: 08/01/23 Stop Date: 08/29/23 Status: Ordered simvastatin 40 mg oral tablet 40 mg, 1, tablet, By Mouth, Daily at bedtime, # 90 tablet, Refills 2, Tot. Refills 2, Maintenance, 06/24/23 12:52:00 EDT, Route to Pharmacy Electronically, [facility] #[id number], Partial fill upon patient request if the prescription is for a sche... Start Date: 06/24/23 Stop Date: 03/20/24 Status: Ordered Problem List Condition Confirmation Course [...] Professional Member Role: PCP Address: Address: [address] [place] [address] [address] [place] [address]- Care Team Related Persons Name: ASHA SUH Name: RAMESH SUH Address: home [address] [place] [address] Name: HAJA SUH Address: home [address] [place] [address]
--- OUTSIDE RECORDS SUMMARY | 2024-07-15 19:03 | XMS_ITS | Continuity of Care Document ---
Author Organization [facility] Address [address] [place] [address]- Care Team Providers Care Media Production Manager Name Role Phone Dionne BARR, Larisa Primary Care Physician [place] [facility] [place](s[place] 05/11/24 - 06/10/24 [facility] [address] [place] [address]- Attending Physician: Admtr, Ar8 Admitting Physician: Admtr, [...] 05/04/24 16:16:00 EDT, Route to Pharmacy Electronically, [facility] #[id number], 180.34, cm, 05/04/24 15:47:00 EDT, Height, 92, [...] 1 Refills, Maintenance, 01/09/24 15:12:00 EST, Solution, [facility] #[id number], Partial fill upon patient request if the prescription is for a schedule II opioid drug., 180, cm, 01/07... Start Date: 01/09/24 Stop Date: 03/09/24 Status: Ordered losartan 25 mg oral tablet 1 tablet, By Mouth, Daily, # 90 tablet, 3 Refills, Maintenance, 05/04/24 16:17:00 EDT, [facility] #[id number], 180.34, cm, 05/04/24 15:47:00 EDT, Height, 92, kg, 03/20/24 10:59:00 EDT, Dry Weight Start Date: 05/04/24 Status: Ordered metFORMIN 1000 mg oral tablet 1 tablet, By Mouth, 2 times a day, # 180 tablet, 3 Refills, Maintenance, 05/04/24 16:17:00 EDT, [facility] #[id number], 180.34, cm, 05/04/24 15:47:00 EDT, Height, 92, [...] 03/27/24 Stop Date: 09/23/24 Status: Ordered Pen [place], 31 G x 8 mm BD Ultra [...] 05/04/24 16:18:00 EDT, Route to Pharmacy Electronically, [facility] #[id number], Partial fill upon patient request if the [...] Care Nurse Name: Larisa Truong NP Position: [facility] PCO Associate Professional Member Role: PCP Address: Address: [address] [place] [address] Name: Ronda Madison RN Position: S RN Member Role: Primary Care Nurse Care Team Related Persons Name: ASHA SUH Name: RAMESH SUH Address: home [address] [place] [address] Name: HAJA SUH Address: home [address] [place] [address]
--- OUTSIDE RECORDS SUMMARY | 2024-07-15 19:03 | XMS_ITS | Continuity of Care Document ---
Author Organization [facility] Adult Address [address] [place] [address]- Care Team Providers Care Gasoline Dragline Operator Name Role Phone Terrence BARR, Larisa Loyd Primary Care Physician Encounter [facility] Date(s): 04/12/23 - 04/19/23 [facility] Adult [address] [place] [address]- Attending Physician: Idris Dempsey MD Allergies, Adverse Reactions, Alerts Substance Reaction [...] oldest [Reference Range]: 1 Height 180 cm (04/12/23 8:37 AM) Weight 122.6 kg (04/12/23 8:37 AM) Oxygen Saturation [94-100 %] 96 % (04/12/23 8:37 AM) Pulse Rate [55-90 bpm] 95 bpm *H* (04/12/23 8:37 AM) Body Mass Index [18.5-24.99 kg/m2] 37.84 kg/m2 *>HHI* (04/12/23 8:37 AM) Blood Pressure [90-138/55-84 mm Hg] 130/ 71mm Hg (04/12/23 8:37 AM) Blood pressure sites Arm, left (04/12/23 8:37 AM) Weight Obtained Via Standing scale (04/12/23 8:37 AM) Social History Social History Type Response Smoking Status Former smoker, quit more than 30 days ago; Other: quit more than 10 years, smoked for three years; entered on: 12/20/22 Sex Note * Gay Santos: PERFORM, SIGN, VERIFY Event Display: Patient Education/Instruction Authored Date: [id number] [facility] *[facility] Clinical Summary Name EDWINA SUH Age 53 Years 1970 PCP Terrence BARR, Larisa [facility]oyd [id number] Date 04/12/2023 08:23:00 Additional Instructions: Scheduled Appointments?? Future Appointments ?*[facility] [address],??[place],??[address] ?Phone:??--?Fax:??-- ?Appt. Date:??06/24/2023?11:00 AM ?Scheduled Provider:??Terrence BARR, Larisa Loyd Follow-Up Instructions ?? Diagnosis Medications: Please continue your medications until treatment is completed or stopped by your provider. Discuss any questions related to medications with your provider. New Medications [facility]/pharmacy #[id number], [address] [place], [place] [id number], [phone] Cephalexin (cephalexin monohydrate 500 mg oral capsule) 1 capsule Oral 4 times a day for 10 Days. Refills: 0. Next Dose: Sulfamethoxazole/Trimethoprim (Bactrim DS 800 mg-160 mg oral tablet) 1 tab(s) Oral twice a day for 10 Days. Refills: 0. Next Dose: Sulfamethoxazole/Trimethoprim (Bactrim DS 800 mg-160 mg oral tablet) 3.75 Milligrams/Kilogram Oral every 6 hours for 14 Days. Dosage expressed as trimethoprim. Refills: 0. Next Dose: Medications to Continue with No [...] for 90 Days. Refills: 0. Next Dose: Metformin (metFORMIN 1000 mg oral tablet) 1 tab(s) Oral twice a day for 90 Days. Refills: 2. Next Dose: Simvastatin (simvastatin 40 mg oral tablet) 1 tab(s) Oral Daily at Bedtime for 90 Days. Refills: 2. Next Dose: Allergy Info:?? naproxen; codeine Medications Given This Visit Future Orders ?No future orders Vital Signs Height 180 cm Weight 122.6 kg BMI 37.84 kg/m2 Blood Pressure 130 mm Hg/71 mm Hg Temperature Pulse Rate 95 bpm Respiratory Rate 02 Sat Mode of Delivery 96 %/ You can now view a summary of your hospital visit from the comfort of your home through a free online portal called [employer]. [employer] is a website that allows you to securely view your medical information including discharge summary, medications and follow-up visits. ??You can alsosend a secure electronic message to your doctor???s office to request appointments, renew medications or just ask a question. You can enroll at [email or web address] or register during your next office [...] care provider, you may find a [facility] provider by calling [facility] [employer] Link at [phone]. For information about the plan of care [...] Address: Address: [address]rd [place] [address]- Care Team Related Persons Name: ASHA SUH Name: RAMESH SUH Address: home [address] [place] [address] Name: HAJA SUH Address: home [address] [place] [address]
--- OUTSIDE RECORDS SUMMARY | 2024-07-15 19:03 | XMS_ITS | Continuity of Care Document ---
Author Organization [facility] Adult Address [address] [place] [address]- Care Team Providers Care Power Transformer Inspector Name Role Phone Dionne BARR, Larisa Primary Care Physician Encounter [facility] Date(s): 03/07/24 - 04/06/24 [facility] Adult [address] [place] [address]- Allergies, Adverse Reactions, Alerts Substance Reaction Severity [...] capsule, 0 Refills, Maintenance, 03/21/24 9:52:00 EDT, [facility] #[id number], 180.34, cm, 03/20/2411:09:00 EDT, Height, 92, kg, [...] 1 Refills, Maintenance, 01/09/24 15:12:00 EST, Solution, [facility][id number], Partial fill upon patient request if the prescription is for a schedule II opioid drug., 180, cm, 01/07... Start Date: 01/09/24 Stop Date: 03/09/24 Status: Ordered losartan 25 mg oral tablet 1 tablet, By Mouth, Daily, # 90 tablet, 0 Refills, Maintenance, 12/29/23 10:39:00 EST, [facility] #[id number], 180, cm, 08/29/23 12:04:00 EDT, Height, 118, kg, 03/26/23 17:27:00 EDT, Dry Weight Start Date: 12/29/23 Status: Ordered metFORMIN 1000 mg oral tablet 1 tablet, By Mouth, 2 times a day, # 180 tablet, 0 Refills, Maintenance, 12/29/23 10:40:00 EST, [facility] #[id number], 180, cm, 08/29/23 12:04:00 EDT, Height, 118, [...] 03/27/24 Stop Date: 09/23/24 Status: Ordered Pen [place], 31 G x 8 mm BD Ultra [...] Care Nurse Name: Larisa Truong NP Position: [facility] PCO Associate Professional Member Role: PCP Address: Address: [address] [place] [address] [address] [place], [place] [address] Name: Ronda Madison RN Position: S RN Member Role: Primary Care Nurse Care Team Related Persons Name: ASHA SUH Name: RAMESH SUH Address: home [address] [place] [address] Name: HAJA SUH Address: home [address] [place] [address]
--- OUTSIDE RECORDS SUMMARY | 2024-07-15 19:03 | XMS_ITS | Continuity of Care Document ---
Author Organization [facility] Address [address] [place] [address]- Care Team Providers Care Mail Carrier And Clerk Name Role Phone Dionne BARR, Larisa Primary Care Physician [place] [facility] [place] 05/11/24 - 05/18/24 [facility] [address] [place] [address]- Encounter Diagnosis Type 2 diabetes mellitus(Discharge Diagnosis) - 05/11/24 Status post amputation of right great toe(Discharge Diagnosis) - 05/11/24 Amputation of toe of left foot(Discharge Diagnosis) - 05/11/24 Attending Physician: Andra Veronica NP Admitting Physician: Adnra Veronica NP Referring Physician: Larisa Truong NP Allergies, Adverse [...] 05/04/24 16:16:00 EDT, Route to Pharmacy Electronically, [facility] #[id number], 180.34, cm, 05/04/24 15:47:00 EDT, Height, 92, [...] 1 Refills, Maintenance, 01/09/24 15:12:00 EST, Solution, [facility] #[id number], Partial fill upon patient request if the prescription is for a schedule II opioid drug., 180, cm, 01/07... Start Date: 01/09/24 Stop Date: 03/09/24 Status: Ordered losartan 25 mg oral tablet 1 tablet, By Mouth, Daily, # 90 tablet, 3 Refills, Maintenance, 05/04/24 16:17:00 EDT, [facility] #[id number], 180.34, cm, 05/04/24 15:47:00 EDT, Height, 92, kg, 03/20/24 10:59:00 EDT, Dry Weight Start Date: 05/04/24 Status: Ordered metFORMIN 1000 mg oral tablet 1 tablet, By Mouth, 2 times a day, # 180 tablet, 3 Refills, Maintenance, 05/04/24 16:17:00 EDT, [facility] #[id number], 180.34, cm, 05/04/24 15:47:00 EDT, Height, 92, [...] 03/27/24 Stop Date: 09/23/24 Status: Ordered Pen [place], 31 G x 8 mm BD Ultra [...] EDT, Route to Pharmacy Electronically, [facility] #[id number], Partial fill upon patient request if the [...] Informant Type 2 diabetes mellitus Discharge Diagnosis 05/11/24 Status post amputation of right great toe Discharge Diagnosis 05/11/24 Amputation of toe of left foot Discharge Diagnosis 05/11/24 Vital Signs Most recent to oldest [Reference Range]: 1 Height 180.34 cm (05/11/24 8:58 AM) Weight 112 kg (05/11/24 8:58 AM) Oxygen Saturation [94-100 %] 97 % (05/11/24 8:58 AM) Pulse Rate [55-90 bpm] 89 bpm (05/11/24 8:58 AM) Body Mass Index [18.5-24.99 kg/m2] 34.44 kg/m2 *>HHI* (05/11/24 8:58 AM) Blood Pressure [90-138/55-84 mm Hg] 110/ 60mm Hg (05/11/24 8:58 AM) Blood pressure sites Arm, left (05/11/24 8:58 AM) Weight Obtained Via Patient/family state d (05/11/24 8:58 AM) Social History Social History Type Response Smoking Status Former smoker, quit more than 30 days ago; Other: quit more than 10 years, smoked for three years; entered on: 12/20/22 Sex Note * Seth Burden: PERFORM Event Display: Patient Education/Instruction Authored Date: [id number] Ambulatory Adult Visit Summary [facility] [address] [facility] [address] [address] Name: EDWINA SUH : 1970?? Visit: 05/11/2024 08:37?? Ambulatory Visit Instructions ?? Your Care Team Primary Care Provider Dionne BARR, Larisa? This Visit Provider Jeremías BARR, Andra Your Diagnosis Type 2 diabetes mellitus Status post amputation of right great toe Amputation of toe of left foot Vitals Signs Pulse Rate: 89 bpm Height: 180.34 cm Systolic Blood Pressure: 110 mm Hg Weight: 112 kg Diastolic Blood Pressure: 60 mm Hg Body Mass Index:??34.44 kg/m2??Critical Oxygen Saturation: 97 % Body surface area: 2.37 What to do next Scheduled Follow-Up Appointments Tuesday 4:10 PM EDT ?? With: Kendall RODRIGUEZ, Damari Mclean Where: [address] [address]- Status: Pending Future Orders Cholesterol Total - Routine, Once, [...] provider. What How Much When Why Instructions Unchanged Durable Medical Equipment (Mendoza FreeStyle Candelario 3 CGM) See instructions Mendoza FreeStyle Candelario 3 CGM ?? Unchanged Durable Medical Equipment (Freestyle Lite Test [...] Mellitus ?? Unchanged Durable Medical Equipment (Pen [place], 31 G x 8 mm BD Ultra Fine III) See instructions Duration: 30 Days use as directed for Type 2 Diabetes Mellitus ?? Unchanged Ibuprofen (ibuprofen 800 mg oral tablet) 1 tab(s) Oral 3 times a day Unchanged Insulin Glargine (Lantus Solostar Pen 100 units/ mL subcutaneous solution) 10 unit(s) Subcutaneous Injection Daily at Bedtime Duration: 30 Days Unchanged Losartan (losartan 25 mg oral tablet) 1 tab(s) Oral Daily Unchanged Metformin (metFORMIN 1000 mg oral tablet) 1 tab(s) Oral Twice a day Duration: 90 Days Unchanged Simvastatin (simvastatin 40 mg oral tablet) 1 tab(s) Oral Daily at Bedtime Duration: 90 Days Medications and Immunizations Administered Medications Given During [...] are strongly encouraged to quit. Please call [employer] at [phone] or [phone] or log in to [email or web address] for referrals to smoking cessation programs. ?? The National Suicide Prevention Hotline is available 13/06 if you or someone you know needs to find a reason to keep living. By calling 4-736-727-fsdb (8304) you'll be connected to a skilled, trained counselor at a crisis center in your area. [facility] Portal You can view and manage your care through the patient portal or by using a health care yury of your choosing. [employer] is a website that allows you to securely view your medical information including your hospital discharge summary, office visit summaries, medications and follow-up visits. You can also request appointments, renew medications, and request access to your medical information using a health care yury of your choosing, or just ask a question. You can enroll at [email or web address] or register during your next office visit. [facility], in keeping with [facility] guidance, no longer requires face masks [...] primary care provider, you may find a [facility] provider by calling [facility] Link at [phone]. Patient Care team information Care Team Personnel Name: Beverly Elam RN Position: S RN Member Role: Primary Care Nurse Name: Aditi Plascencia Position: Jose [facility]AL[facility] Supv Member Role: Primary Care Nurse Name: Larisa Truong NP Position: [facility] PCO Associate Professional Member Role: PCP Address: Address: [address] [place] [address] [address]rd [place] [address]- [place] Name: Ronda Madiosn RN Position: S RN Member Role: Primary Care Nurse Care Team Related Persons Name: ASHA SUH Name: RAMESH SUH Address: home [address] [place] [address] Name: HAJA SUH Address: home [address] [place] [address]
--- OUTSIDE RECORDS SUMMARY | 2024-07-15 19:03 | XMS_ITS | Continuity of Care Document ---
Author Organization [facility] Address [address] [place] [address]- Care Team Providers Care Category Development Manager Name Role Phone Larisa Truong NP Primary Care Physician [place] [facility] [place] 03/[place]/24 - 03/13/24 [facility] [address] [place] [address]- Encounter Diagnosis History of fracture of right hip(Discharge Diagnosis) - 03/06/24 Hypocalcemia(Discharge Diagnosis) - 03/06/24 Hypomagnesemia(Discharge Diagnosis) - 03/06/24 Adjustment disorder with depressed mood(Discharge Diagnosis) - 03/06/24 Fungal dermatitis(Discharge Diagnosis) - 03/06/24 Sacral pressure ulcer(Discharge Diagnosis) - 03/06/24 Attending Physician: Rosibel SEQUEIRA, Francesca Referring Physician: Larisa Truong NP Allergies, Adverse [...] 1 Refills, Maintenance, 01/09/24 15:12:00 EST, Solution, [facility] #[id number], Partial fill upon patient request if the prescription is for a schedule II opioid drug., 180, cm, 01/07... Start Date: 01/09/24 Stop Date: 03/09/24 Status: Ordered losartan 25 mg oral tablet 1 tablet, By Mouth, Daily, # 90 tablet, 0 Refills, Maintenance, 12/29/23 10:39:00 EST, [facility][id number], 180, cm, 08/29/23 12:04:00 EDT, Height, 118, kg, 03/26/23 17:27:00 EDT, Dry Weight Start Date: 12/29/23 Status: Ordered metFORMIN 1000 mg oral tablet 1 tablet, By Mouth, 2 times a day, # 180 tablet, 0 Refills, Maintenance, 12/29/23 10:40:00 EST, [facility] #[id number], 180, cm, 08/29/23 12:04:00 EDT, Height, 118, kg, 03/26/23 17:27:00 EDT, DryWeight Start Date: 12/29/23 Status: Ordered Pen [place], 31 G x 8 mm BD Ultra [...] Effective Dates Health Status Clinical Service Informant History of fracture of right hip Discharge Diagnosis 03/06/24 Hypocalcemia Discharge Diagnosis 03/06/24 Hypomagnesemia Discharge Diagnosis 03/06/24 Adjustment disorder with depressed mood Discharge Diagnosis 03/06/24 Fungal dermatitis Discharge Diagnosis 03/06/24 Sacral pressure ulcer Discharge Diagnosis 03/06/24 Vital Signs Most recent to oldest [Reference Range]: 1 Height 180.34 cm (03/06/24 2:02 PM) Oxygen Saturation [94-100 %] 98 % (03/06/24 2:02 PM) Pulse Rate [55-90 bpm] 94 bpm *H* (03/06/24 2:02 PM) Blood Pressure [90-138/55-84 mm Hg] 123/ 77mm Hg (03/06/24 2:02 PM) Mode of Delivery (Oxygen) Room air (03/06/24 2:02 PM) Blood pressure sites Arm, left (03/06/24 2:02 PM) Social History Social History Type Response Smoking Status Former smoker, quit more than 30 days ago; Other: quit more than 10 years, smoked for three years; entered on: 1/30/23 Sex Note * Bronson Moseleyine: PERFORM, SIGN, VERIFY Event Display: Patient Education/Instruction Authored Date: [id number] [facility] *[facility] Clinical Summary Name EDWINA SUH Age 54 Years 1970 PCP Larisa Truong NP PCP Visit Date 03/06/2024 13:57:00 Additional Instructions: Scheduled Appointments?? Future Appointments ?*[facility],??[place],??[address] ?Phone:??--?Fax:??-- ?Appt. Date:??03/20/2024?11:00 AM ?Scheduled Provider:??Andra Veronica NP Follow-Up Instructions ?? Diagnosis Hypocalcemia; Hypomagnesemia; Superficial mycosis, unspecified; Pressure ulcer of sacral region, unspecified stage; Personal history of (healed) traumatic fracture; Adjustment disorder with depressedmood Medications: Please continue your medications until treatment is completed or stopped by your provider. Discuss any questions related to medications with your provider. [facility]ations [id number] [address], [place] [id number], [phone] Ketoconazole (ketoconazole 2% topical cream) 1 yury Topically twice a day for 7 Days. to affected area. Refills: 0. Next Dose: Medications to Continue [...] 2. Next Dose: Durable Medical Equipment (Pen [place], 31 G x 8 mm BD Ultra [...] tablet) 2 tab(s) Oral Daily. Next Dose: No Longer Take the Following Medications Ascorbic Acid (ascorbic acid 250 mg oral tablet) 250 Milligram Oral two times a day with meals. Bisacodyl (bisacodyl 10 mg rectal suppository) 1 suppository(ies) Per rectum Daily as needed Constipation. Cholecalciferol (cholecalciferol 1000 intl units oral tablet) Oral Daily. Ferrous Sulfate (ferrous sulfate 325 mg oral enteric coated tablet) 325 Milligram Oral Daily. Magnesium Oxide (magnesium oxide 400 mg oral tablet) 400 Milligram Oral twice a day. Multivitamin (Multivitamin Tablet) 1 tab(s) Oral Daily. Polyethylene Glycol 3350 (MiraLax Powder) 17 gram Oral Daily as needed Constipation. Allergy Info:?? naproxen; codeine Medications Given This Visit Future Orders ?No future orders Future Orders ?Calcium Level? Order Date:03/06/24?- Complete within?Magnesium Level? Order Date:03/06/24?- Complete within? Vital Signs Height 180.34 cm Weight BMI Blood Pressure 123 mm Hg/77 mm Hg Temperature Pulse Rate 94 bpm Respiratory Rate 02 Sat Mode of Delivery 98 %/Room air You can now view a summary of your hospital visit from the comfort of your home through a free online portal called [employer]. [employer] is a website that allows you to securely view your medical information including discharge summary, medications and follow-up visits. ??You can alsosend a secure electronic message to your doctor???s office to request appointments, renew medications or just ask a question. You can enroll at [email or web address] or register during your next office [...] primary care provider, you may find a [facility] provider by calling [facility] [facility] at [phone]. [facility], in keeping with [facility] guidance, no longer requires face [...] Care Nurse Name: Larisa Truong NP Position: [facility] PCO Associate Professional Member Role: PCP Address: Address: [address] [place] [address] [address] [place], [place] [address] Name: Ronda Madison RN Position: S RN Member Role: Primary Care Nurse Care Team Related Persons Name: ASHA SUH Name: RAMESH SUH Address: home [address] [place] [id number] Name: HAJA SUH Address: home [address] [place] [address]
--- OUTSIDE RECORDS SUMMARY | 2024-07-15 19:03 | XMS_ITS | Continuity of Care Document ---
Author Organization [facility] Address [address] [place] [address]- Care Team Providers Care Head Of Design Name Role Phone Terrence BARR, Larisa Loyd Primary Care Physician Encounter [facility] [place] Date(s): 04/13/23 - 05/13/[address] [facility] [address] [place] [id number]- Allergies, Adverse Reactions, Alerts Substance Reaction Severity [...] 05/12/23 9:18:00 EDT, Route to Pharmacy Electronically, [facility]/pharmacy #[id number], 180, cm, 04/12/23 8:37:00 EDT, Height, 118, kg, 03/26/23 17:27:00 EDT, Dry Weight Start Date: 05/12/23 Stop Date: 06/12/23 Status: Ordered losartan 25 mg oral tablet 25 mg, 1, tablet, By Mouth, Daily, # 90 tablet, Refills 0, Tot. Refills 0, Maintenance, 03/17/23 13:29:00 EDT, Route to Pharmacy Electronically, [facility]/pharmacy #1234, Partial fill upon patient request if the prescription is for a schedule II opioid drug... Start Date: 03/17/23 Stop Date: 06/15/23 Status: Ordered metFORMIN 1000 mg oral tablet 1 tablet = 1,000 mg, By Mouth, 2 times a day, # 180 tablet, 2 Refills, Maintenance, 12/20/22 11:02:00 EST, Tablet, [facility]/pharmacy #[id number], Partial fill upon patient request if the prescription is for a schedule II opioid drug., 180, cm, 12/20/22 10:05:00... Start Date: 12/20/22 Stop Date: 09/16/23 Status: Ordered simvastatin 40 mg oral tablet 40 mg, 1, tablet, By Mouth, Daily at bedtime, # 90 tablet, Refills 2, Tot. Refills 2, Maintenance, 03/17/23 13:28:00 EDT, Route to Pharmacy Electronically, [facility]/pharmacy #1234, Partial fill upon patient request if the prescription is for a schedule II... Start Date: 03/17/23 Stop Date: 12/12/23 Status: Ordered Trulicity Pen 0.75 mg/0.5 mL subcutaneous solution 0.5 mL = 0.75 mg, Subcutaneous Injection, Every week, rotate injection sites, # 2.5 mL, 0 Refills, Maintenance, 03/17/23 13:29:00 EDT, Solution, [facility]/pharmacy #1234, Partial fill upon patient request if the prescription is for a schedule II opioid drug... Start Date: 03/17/23 Stop Date: 04/16/23 Status: Ordered Trulicity Pen 1.5 mg/0.5 mL subcutaneous solution 0.5 mL = 1.5 mg, Subcutaneous Injection, Every week, rotate injection sites, # 2 mL, 3 Refills, Maintenance, 05/02/23 8:44:00 EDT, Solution, [facility]/pharmacy #1234, Partial fill upon patient request if [...] Personnel Name: Terrence BARR, Larisa Loyd Position: S PCO Associate Professional Member Role: PCP Address: Address: [address] [place] [address] [address]rd [place] [address]- Care Team Related Persons Name: ASHA SUH Name: RAMESH SUH Address: home [address] [place] [id number] Name: HAJA SUH Address: home [address] [place] [address]
--- OUTSIDE RECORDS SUMMARY | 2024-07-15 19:03 | XMS_ITS | Continuity of Care Document ---
Author Organization [facility] Address [address] [place] [address]- Care Team Providers Care Salesperson Jewelry Name Role Phone Terrence BARR, Larisa Loyd Primary Care Physician [phone] [place] [facility] [place] 05[place]05/23 [facility] [address] [place] [address]- Allergies, Adverse Reactions, Alerts Substance Reaction Severity Status codeine Active naproxen Active Immunizations Given and Recorded Vaccine Date Status Refusal Reason SARS-CoV-2 (COVID-19) mRNA-1273 vaccine 11/18/21 R ecorded SARS-CoV-2 (COVID-19) mRNA-1273 vaccine 10/07/21 R ecorded tetanus/diphtheria/pertussis, acel(Tdap) 10/11/14 Recorded Medications ibuprofen 800 mg oral tablet 800 mg, 1, tablet, By Mouth, 3 times a day, for 30 days, # 90 tablet, Refills 1, Tot. Refills 1, Acute 05/16/23 13:02:00 EDT, 03/17/23 13:02:00 EDT, Route to Pharmacy Electronically, [facility]/pharmacy #1234, Partial fill upon patient request if the prescri... Start Date: 03/17/23 Stop Date: 05/16/23 Status: Ordered losartan 25 mg oral tablet 25 mg, 1, tablet, By Mouth, Daily, # 90 tablet, Refills 0, Tot. Refills 0, Maintenance, 03/17/23 13:29:00 EDT, Route to Pharmacy Electronically, [facility]/pharmacy #1234, Partial fill upon patient request if the prescription is for a schedule II opioid drug... Start Date: 03/17/23 Stop Date: 06/15/23 Status: Ordered metFORMIN 1000 mg oral tablet 1 tablet = 1,000 mg, By Mouth, 2 times a day, # 180 tablet, 2 Refills, Maintenance, 12/20/22 11:02:00 EST, Tablet, [facility]/pharmacy #1234, Partial fill upon patient request if the prescription is for a schedule II opioid drug., 180, cm, 12/20/22 10:05:00... Start Date: 12/20/22 Stop Date: 09/16/23 Status: Ordered simvastatin 40 mg oral tablet 40 mg, 1, tablet, By Mouth, Daily at bedtime, # 90 tablet, Refills 2, Tot. Refills 2, Maintenance, 03/17/23 13:28:00 EDT, Route to Pharmacy Electronically, [facility]/pharmacy #1234, Partial fill upon patient request if the prescription is for a schedule II... Start Date: 03/17/23 Stop Date: 12/12/23 Status: Ordered Trulicity Pen 0.75 mg/0.5 mL subcutaneous solution 0.5 mL = 0.75 mg, Subcutaneous Injection, Every week, rotate injection sites, # 2.5 mL, 0 Refills, Maintenance, 03/17/23 13:29:00 EDT, Solution, [facility]/pharmacy #1234, Partial fill upon patient request if the prescription is for a schedule II opioid drug... Start Date: 03/17/23 Stop Date: 04/16/23 Status: Ordered Trulicity Pen 1.5 mg/0.5 mL subcutaneous solution 0.5 mL = 1.5 mg, Subcutaneous Injection, Every week, rotate injection sites, # 2 mL, 3 Refills, Maintenance, 05/02/23 8:44:00 EDT, Solution, [facility]/pharmacy #1234, Partial fill upon patient request [...] Personnel Name: Terrence BARR, Larisa Loyd Position: [facility] PCO Associate Professional Member Role: PCP Address: Address: [address] [place] [address] [address]rd [place] [address]- Care Team Related Persons Name: ASHA SUH Name: RAMESH SUH Address: home [address] [place] [address] Name: HAJA SUH Address: home [address] [place] [address]
--- OUTSIDE RECORDS SUMMARY | 2024-07-15 19:03 | XMS_ITS | Continuity of Care Document ---
Author Organization [facility] Address [address] [place] [address]- Care Team Providers Care Pony Roll Finisher Name Role Phone Dionne BARR, Larisa Primary Care Physician [place] [facility] [place] Date(s): 03/06/24 - 04/05/24 [facility] [address] [place] [address]- Attending Physician: Anat Layne Admitting Physician: Admtr, [id number] Referring Physician: Admtr, [id number] Allergies, Adverse Reactions, [...] capsule, 0 Refills, Maintenance, 03/21/24 9:52:00 EDT, [facility] #[id number], 180.34, cm, 03/20/2411:09:00 EDT, Height, 92, kg, [...] 1 Refills, Maintenance, 01/09/24 15:12:00 EST, Solution, [facility] #[id number], Partial fill upon patient request if the prescription is for a schedule II opioid drug., 180, cm, 01/07... Start Date: 01/09/24 Stop Date: 03/09/24 Status: Ordered losartan 25 mg oral tablet 1 tablet, By Mouth, Daily, # 90 tablet, 0 Refills, Maintenance, 12/29/23 10:39:00 EST, [facility] #[id number], 180, cm, 08/29/23 12:04:00 EDT, Height, 118, kg, 03/26/23 17:27:00 EDT, Dry Weight Start Date: 12/29/23 Status: Ordered metFORMIN 1000 mg oral tablet 1 tablet, By Mouth, 2 times a day, # 180 tablet, 0 Refills, Maintenance, 12/29/23 10:40:00 EST, [facility] #[id number], 180, cm, 08/29/23 12:04:00 EDT, Height, 118, [...] 03/27/24 Stop Date: 09/23/24 Status: Ordered Pen [place], 31 G x 8 mm BD Ultra [...] Care Nurse Name: Larisa Truong NP Position: [facility] PCO Associate Professional Member Role: PCP Address: Address: [address] [place] [address] [address] [place], [place] [address] Name: Ronda Madison RN Position: S RN Member Role: Primary Care Nurse Care Team Related Persons Name: ASHA SUH Name: RAMESH SUH Address: home [address] [place] [address] Name: HAJA SUH Address: home [address] [place] [address]
--- OUTSIDE RECORDS SUMMARY | 2024-07-15 19:03 | XMS_ITS | Continuity of Care Document ---
Author Organization [facility] Address [address] [place] [address]- Care Team Providers Care Lens Cementer Name Role Phone Dionne BARR, Larisa Primary Care Physician [phone] [place] [facility] [place]24 [facility] [address] [place] [address]- Allergies, Adverse Reactions, Alerts Substance Reaction Severity [...] capsule, 0 Refills, Maintenance, 03/21/24 9:52:00 EDT, [facility] #[id number], 180.34, cm, 03/20/2411:09:00 EDT, Height, 92, kg, [...] 04/23/24 12:51:00 EDT, Route to Pharmacy Electronically, [facility] #[id number], 180.34, cm, 04/10/24 13:14:00 EDT, Height, 92, [...] 1 Refills, Maintenance, 01/09/24 15:12:00 EST, Solution, [facility] #[id number], Partial fill upon patient request if the prescription is for a schedule II opioid drug., 180, cm, 01/07... Start Date: 01/09/24 Stop Date: 03/09/24 Status: Ordered losartan 25 mg oral tablet 1 tablet, By Mouth, Daily, # 90 tablet, 0 Refills, Maintenance, 12/29/23 10:39:00 EST, [facility] #[id number], 180, cm, 08/29/23 12:04:00 EDT, Height, 118, kg, 03/26/23 17:27:00 EDT, Dry Weight Start Date: 12/29/23 Status: Ordered metFORMIN 1000 mg oral tablet 1 tablet, By Mouth, 2 times a day, # 180 tablet, 0 Refills, Maintenance, 12/29/23 10:40:00 EST, [facility] #[id number], 180, cm, 08/29/23 12:04:00 EDT, Height, 118, [...] 03/27/24 Stop Date: 09/23/24 Status: Ordered Pen [place], 31 G x 8 mm BD Ultra [...] Associate Professional Member Role: PCP Address: Address: [address] [place] [address] [address] [place] [address]- Name: Ronda Madison RN Position: S RN Member Role: Primary Care Nurse Care Team Related Persons Name: ASHA SUH Name: RAMESH SUH Address: home [address] [place] [address] Name: HAJA SUH Address: home [address] [place] [address]
--- OUTSIDE RECORDS SUMMARY | 2024-07-15 19:03 | XMS_ITS | Continuity of Care Document ---
Author Organization [facility] Address [address] [place] [address]- Care Team Providers Care Packing Tractor Machine Operator Name Role Phone Dionne BARR, Larisa Primary Care Physician [place] [facility] [place]/09[place]24 [place] 02/08/24 [facility] [address] [place] [address]- Allergies, Adverse Reactions, Alerts Substance Reaction Severity [...] 03/02/24 14:14:00 EDT, 02/03/24 14:14:00 EDT, Capsule, [facility] #[id number], Partial fill upon patient request if the [...] 06/24/23 12:52:00 EDT, Route to Pharmacy Electronically, [facility] #[id number], 180, cm, 06/24/23 11:02:00 EDT, Height, 118, kg, 03/26/23 17:27:00 EDT, Dry W... Start Date: 06/24/23 Status: Ordered Jardiance 10 mg oral tablet 1 tablet, By Mouth, Daily in AM, # 30 tablet, 3 Refills, Maintenance, 10/27/23 11:21:00 EST, [facility] #[id number], 180, cm, 08/29/23 12:04:00 EDT, Height, 118, kg, 03/26/23 17:27:00 EDT, Dry Weight Start Date: 10/27/23 Status: Ordered Lantus Solostar Pen 100 units/mL subcutaneous solution = 10 units, Subcutaneous Injection, Daily at bedtime, # 15 mL, 1 Refills, Maintenance, 01/09/24 15:12:00 EST, Solution, [facility] #[id number], Partial fill upon patient request if the prescription is for a schedule II opioid drug., 180, cm, 01/07... Start Date: 01/09/24 Stop Date: 03/09/24 Status: Ordered losartan 25 mg oral tablet 1 tablet, By Mouth, Daily, # 90 tablet, 0 Refills, Maintenance, 12/29/23 10:39:00 EST, [facility] #[id number], 180, cm, 08/29/23 12:04:00 EDT, Height, 118, kg, 03/26/23 17:27:00 EDT, Dry Weight Start Date: 12/29/23 Status: Ordered metFORMIN 1000 mg oral tablet 1 tablet, By Mouth, 2 times a day, # 180 tablet, 0 Refills, Maintenance, 12/29/23 10:40:00 EST, [facility] #[id number], 180, cm, 08/29/23 12:04:00 EDT, Height, 118, kg, 03/26/23 17:27:00 EDT, DryWeight Start Date: 12/29/23 Status: Ordered Pen [place], 30 G x 8 mm BD Ultra Fine II See Instructions, # 300 each, Refills 2, Tot. Refills 2, Maintenance, use as directed for Type 2 Diabetes Mellitus, 01/09/24 15:13:00 EST, Supply, 180, cm, 01/07/24 11:05:00 EST, Height, 120, kg, 01/02/24 0:32:00 EST, Dry Weight Start Date: 01/09/24 Stop Date: 10/05/24 Status: Ordered Pen [place], 31 G x 8 mm BD Ultra [...] 12/29/23 10:39:00 EST, Route to Pharmacy Electronically, [facility] #[id number], 180, cm, 08/29/23 12:04:00 EDT, Height, 118, kg, 03/26/23 17:27:00 EDT, Dry Weight Start Date: 12/29/23 Status: Ordered Trulicity Pen 0.75 mg/0.5 mL subcutaneous solution 0.5 mL = 0.75 mg, Subcutaneous Injection, Every week, rotate injection sites, # 2 mL, 1 Refills, Maintenance, 08/29/23 11:49:00 EDT, Solution, [facility] #[id number], Partial fill upon patient request if the [...] Team Personnel Name: Beverly Elam RN Position: [facility] RN Member Role: Primary Care Nurse Name: Aditi Plascencia Position: [facility] RN Supv Member Role: Primary Care Nurse Name: Larisa Truong NP Position: [facility] PCO Associate Professional Member Role: PCP Address: Address: [address] [place] [address] [address] [place] [address]- Care Team Related Persons Name: ASHA SUH Name: RAMESH SUH Address: home [address] [place] [address] Name: HAJA SUH Address: home [address] [place] [address]
--- OUTSIDE RECORDS SUMMARY | 2024-07-15 19:03 | XMS_ITS | Continuity of Care Document ---
Author Organization [facility] Adult Address [address] [place] [address]- Care Team Providers Care Rn Case Manager Hospice Name Role Phone Terrence BARR, Larisa Loyd Primary Care Physician [phone] Encounter [facility] Date(s): 06/24/23 - 07/01/23 [facility] Adult [address] [place] [id number]- Encounter Diagnosis Hypertension(Discharge Diagnosis) - 06/24/23 Positive screening for depression on 2-item Patient Health Questionnaire (PHQ-2) (Discharge Diagnosis) - 06/24/23 Right shoulder pain(Discharge Diagnosis) - 06/24/23 Attending Physician: Not on Staff, Attending MD [...] 06/24/23 12:52:00 EDT, Route to Pharmacy Electronically, [facility] #[id number], 180, cm, 06/24/23 11:02:00 EDT, Height, 118, kg, 03/26/23 17:27:00 EDT, Dry W... Start Date: 06/24/23 Status: Ordered losartan 25 mg oral tablet 1 tablet, By Mouth, Daily, # 90 tablet, 2 Refills, Maintenance, 06/24/23 12:52:00 EDT, [facility] #[id number], 180, cm, 06/24/23 11:02:00 EDT, Height, 118, kg, 03/26/23 17:27:00 EDT, Dry Weight Start Date: 06/24/23 Status: Ordered metFORMIN 1000 mg oral tablet 1 tablet = 1,000 mg, By Mouth, 2 times a day, # 180 tablet, 2 Refills, Maintenance, 06/24/23 12:52:00 EDT, Tablet, [facility] #[id number], Partial fill upon patient request if the prescription isfor a schedule II opioid drug., 180, cm, 06/24/23 1... Start Date: 06/24/23 Stop Date: 03/20/24 Status: Ordered Ozempic 2 mg/3 mL (0.25 mg or 0.5 mg dose) subcutaneous solution = 0.5 mg, Subcutaneous Infusion, Every 7 days, # 3 mL, 0 Refills, Maintenance, 06/24/23 11:25:00 EDT, [facility] #[id number], Partial fill upon patient request if the prescription is for a schedule II opioid drug., 180, cm, 06/24/23 11:02:00 EDT,... Start Date: 06/24/23 Stop Date: 07/22/23 Status: Ordered simvastatin 40 mg oral tablet 40 mg, 1, tablet, By Mouth, Daily at bedtime, # 90 tablet, Refills 2, Tot. Refills 2, Maintenance, 06/24/23 12:52:00 EDT, Route to Pharmacy Electronically, [facility] #[id number], Partial fill upon patient request if the [...] Effective Dates Health Status Clinical Service Informant Hypertension Discharge Diagnosis 06/24/23 Positive screening for depression on 2-item Patient Health Questionnaire (PHQ-2) Discharge Diagnosis 06/24/23 Right shoulder pain Discharge Diagnosis 06/24/23 Vital Signs Most recent to oldest [Reference Range]: 1 2 Height 180 cm (06/24/23 11:02 AM) 180 cm (06/24/23 10:56 AM) Weight 123.7 kg (06/24/23 10:56 AM) Body Mass Index [18.5-24.99 kg/m2] 38.18 kg/m2 *>HHI* (06/24/23 10:56 AM) Blood Pressure [90-138/55-84 mm Hg] 122/ 79mm Hg (06/24/23 11:02 AM) 144/77mm Hg *H* (06/24/23 10:56 AM) Mode of Delivery (Oxygen) Room air (06/24/23 10:56 AM) Blood pressure sites Arm, right (06/24/23 11:02 AM) Arm, right (06/24/23 10:56 AM) Weight Obtained Via Standing scale (06/24/23 10:56 AM) Social History Social History Type Response Smoking Status Former smoker, quit more than 30 days ago; Other: quit more than 10 years, smoked for three years; entered on: 12/20/22 Sex Note * Gay Santos: PERFORM, SIGN, VERIFY Event Display: Patient Education/Instruction Authored Date: [id number] [facility] *[facility] Clinical Summary Name EDWINA SUH Age 53 Years 1970 PCP Terrence BARR, Larisa Loyd PCP Visit Date 06/24/2023 10:42:00 Additional Instructions: follow up in 3 months. Request records from [facility] Scheduled Appointments?? Future Appointments ?No Future Appointments Scheduled Follow-Up Instructions ?? Diagnosis Type 2 diabetes mellitus without complications Medications: Please continue your medications until treatment is completed or stopped by your provider. Discuss any questions related to medications with your provider. New Medications [facility] #[id number], [address], [place] [id number], [phone] semaglutide (Ozempic 2 mg/3 mL (0.25 mg or 0.5 mg dose) subcutaneous solution) 0.5 Milligram Subcutaneous Infusion every 7 days for 4 week(s). Refills: 0. Next Dose: Medications to Continue with No Changes These medications were not printed or sent to your pharmacy Ibuprofen (ibuprofen 800 mg oral tablet) 1 [...] Dose: No Longer Take the Following Medications dulaglutide (Trulicity Pen 0.75 mg/0.5 mL subcutaneous solution) 0.5 Milliliter Subcutaneous Injection every week for 30 Days. rotate injection sites. Refills: 0. dulaglutide (Trulicity Pen 1.5 mg/0.5 mL subcutaneous solution) 0.5 Milliliter Subcutaneous Injection every week for 4 week(s). rotate injection sites. Refills: 3. Allergy Info:?? naproxen; codeine Medications Given This Visit Future Orders ?Basic Metabolic Panel? Order Date:06/24/23?- Complete on or after?06/24/23 ?Microalbumin Urine? Order Date:06/24/23?- Complete on or after?06/24/23 Vital Signs Height 180 cm Weight 123.7 kg BMI 38.18 kg/m2 Blood Pressure 122 mm Hg/79 mm Hg Temperature Pulse Rate Respiratory Rate 02 Sat Mode of Delivery /Room air You can now view a summary of your hospital visit from the comfort of your home through a free online portal called [employer]. [employer] is a website that allows you to securely view your medical information including discharge summary, medications and follow-up visits. ??You can alsosend a secure electronic message to your doctor???s office to request appointments, renew medications or just ask a question. You can enroll at [email or web address] or register during your next [...] primary care provider, you may find a [facility] provider by calling [facility] [employer] Link at [phone]. For information about the plan of care including goals and instructions for your diagnosis, please see the patient education orders section of this document. Patient Education Materials?? The content of this educational material or handout may have been modified, supplemented, or adapted from its original content and format to support your individualized medical care. * Larisa Ocampo NP: PERFORM, SIGN, VERIFY Event Display: Patient Education/Instruction Authored Date: [id number] [facility] *[facility] Clinical Summary Name EDWINA SUH Age 53 Years 1970 PCP Larisa Ocampo NP PCP Visit Date 06/24/2023 10:42:00 Additional Instructions: follow up in 3 months. Request records from [facility] Scheduled Appointments?? Future Appointments ?No Future Appointments Scheduled Follow-Up Instructions ?? Diagnosis Type 2 diabetes mellitus without complications Medications: Please continue your medications until treatment is completed or stopped by your provider. Discuss any questions related to medications with your provider. New Medications [facility] #[id number], [address], [place] [phone], [phone] semaglutide (Ozempic 2 mg/3 mL (0.25 mg or 0.5 mg dose) subcutaneous solution) 0.5 Milligram Subcutaneous Infusion every 7 days for 4 week(s). Refills: 0. Next Dose: Medications to Continue with No Changes These medications were not printed or sent to your pharmacy Ibuprofen (ibuprofen 800 mg oral tablet) 1 [...] Dose: No Longer Take the Following Medications dulaglutide (Trulicity Pen 0.75 mg/0.5 mL subcutaneous solution) 0.5 Milliliter Subcutaneous Injection every week for 30 Days. rotate injection sites. Refills: 0. dulaglutide (Trulicity Pen 1.5 mg/0.5 mL subcutaneous solution) 0.5 Milliliter Subcutaneous Injection every week for 4 week(s). rotate injection sites. Refills: 3. Allergy Info:?? naproxen; codeine Medications Given This Visit Future Orders ?Basic Metabolic Panel? Order Date:06/24/23?- Complete on or after?06/24/23 ?Microalbumin Urine? Order Date:06/24/23?- Complete on or after?06/24/23 Vital Signs Height 180 cm Weight 123.7 kg BMI 38.18 kg/m2 Blood Pressure 122 mm Hg/79 mm Hg Temperature Pulse Rate Respiratory Rate 02 Sat Mode of Delivery /Room air You can now view a summary of your hospital visit from the comfort of your home through a free online portal called [employer]. [employer] is a website that allows you to securely view your medical information including discharge summary, medications and follow-up visits. ??You can alsosend a secure electronic message to your doctor???s office to request appointments, renew medications or just ask a question. You can enroll at [email or web address] or register during your next [...] primary care provider, you may find a [facility] provider by calling [facility] [employer] Link at [phone]. For information about the plan of care [...] Professional Member Role: PCP Address: Address: [address] Care Team Related Persons Name: ASHA SUH Name: RAMESH SUH Address: [address] [place] [address] Name: HAJA SUH Address: [address] [place] [address]
--- OUTSIDE RECORDS SUMMARY | 2024-07-15 19:03 | XMS_ITS | Continuity of Care Document ---
Author Organization [facility] Adult Address [address] [place] [address]- Care Team Providers Care Drivematic Machine Operator Name Role Phone Not on Staff, PCP Primary Care Physician Unavail able Encounter [facility] Date(s): 09/07/22 - 11/05/22 [facility] [address] [place] [id number]- Attending Physician: Not on Staff, Attending MD Referring Physician: Terrence BARR, Larisa Loyd Allergies, Adverse Reactions, Alerts Substance Reaction Severity [...] SUH Name: RAMESH SUH Address: [address] [place] [address] Name: HAJA SUH Address: [address] [place] [address]
[2024-07-15 19:53] VITALS: BP 116/70; PULSE 88; RESP 18; TEMP 36.8; O2SAT 98
== END 2024-07-15 19:53 | disposition home or self-care (01) ==
PROVIDERS: Registered Nurse Emergency; Emergency Provider Emergency Medicine Emergency Medical Services; PCP Nurse Practitioner Family
DX: R42 Dizziness and giddiness (principal); R51.9 Headache, unspecified; R11.0 Nausea; Z79.899 Other long term (current) drug therapy
CPT/HCPCS: 36415; 80053; 82375; 82803; 85025; 99282; 99283